=== PATIENT | female | born 1960 | race Caucasian/White ===

== ENCOUNTER → 2016-04-04 | Outpatient (CLI) | payer OTHER ==
[2016-04-04 14:32] LABS: Basophils # (A) 0.1 k/uL (0-0.2); Basophils % (A) 1 %; CH 31.5; CHCM 32.3; Eosinophils # (A) 0.2 k/uL (0-0.7); Eosinophils % (A) 1 %; HCT 46.9 % (34.0-46.0); HDW 2.28; HGB 14.9 gm/dL (11.4-16.0); Luc # (Auto) 0.14; Luc % (Auto) 1; Lymphocytes # (A) 2.9 k/uL (1.0-4.8); Lymphocytes % (A) 27 %; MCH 31.2 pg (25.0-35.0); MCHC 31.8 g/dL (31.0-37.0); MCV 97.9 fL (80.0-100.0); Mean Platelet Volume 6.8; Monocytes # (A) 0.8 k/uL (0-1.0); Monocytes % (A) 7 %; Neutrophils # (A) 6.5 k/uL (1.3-7.7); Neutrophils % (A) 62 %; RBC 4.79 m/uL (3.80-5.40); RDW 12.8 % (11.5-15.5); WBC 10.6 k/uL (3.8-10.6); WBC (Perox) 10.96
[2016-04-04 14:47] LABS: Anion Gap 11 mmol/L; Blood Urea Nitrogen 17 mg/dL (7-17); Carbon Dioxide 26 mmol/L (22-30); Chloride 107 mmol/L (98-107); Non-African American GFR(MDRD) 58 (>60 ml/min/1.73 sqM); Potassium 4.2 mmol/L (3.5-5.1); Sodium 144 mmol/L (137-145)
== END | disposition home or self-care (01) ==
LOC: LABPAT 14:10
PROVIDERS: ATTEND Internal Medicine Interventional Cardiology
DX: Z01.812 Encounter for preprocedural laboratory examination (principal); I25.10 Atherosclerotic heart disease of native coronary artery without angina pectoris
CPT/HCPCS: 80051; 82565; 84520; 85025

== ENCOUNTER → 2016-04-08 | Outpatient (CLI) | payer OTHER ==
--- NOTE | 2016-05-03 08:54 | MM ---
Reason for exam: screening (asymptomatic). Last mammogram was performed 13 years and 8 months ago. History: Patient is postmenopausal and has history of other cancer at age 27. Physical Findings: A clinical breast exam by your physician is recommended on an annual basis and results should be correlated with mammographic findings. MG Screening Mammo w CAD Bilateral CC and MLO view(s) were taken. Prior study comparison: August 04, 2002, bilateral screening mammogram. July 25, 2001, left breast special view mammogram. No significant changes when compared with prior studies. ASSESSMENT: Benign, BI-RAD 2 RECOMMENDATION: Routine screening mammogram of both breasts in 1 year.
== END | disposition home or self-care (01) ==
LOC: RADMAMWWP 10:18
PROVIDERS: ATTEND Family Medicine
DX: Z12.31 Encounter for screening mammogram for malignant neoplasm of breast (principal)

== ENCOUNTER 2016-04-14 07:02 | Day surgery (SDC) | payer OTHER ==
[2016-04-12 09:41] VITALS: BMI 36.5
[~2016-04-14 07:02] MED LIST: ALPRAZolam 0.25 MG TAB PO PRN; ALPRAZolam 0.5 MG TAB PO PRN; ASPIRIN 325 MG TAB PO STA; ATORVASTATIN 80 MG TAB PO STA; NITROGLYCERIN SL TABS 0.4 MG TAB SUBLINGUAL PRN; SODIUM CHLORIDE 0.9% 1,000 ML in EMPTY BAG 1 BAG IV ONE
[2016-04-14 07:30] VITALS: TEMP 97.8
[2016-04-14] MEDS ORDERED: LIDOCAINE 2% INJ 20 MG/ML SQ ONE (11:23)
[2016-04-14] MEDS ORDERED: MIDAZOLAM 2 MG/2 ML VIAL IVP ONE (11:24)
[2016-04-14] MEDS ORDERED: fentaNYL (PF) 50 MCG/ML 2 ML AMP IV ONE (11:37)
[2016-04-14] MEDS ORDERED: RX INFO: IV CONTRAST WAS GIVEN 1 EACH MISC MISCELLANE PRN (11:52)
[2016-04-14] MEDS ORDERED: IOHEXOL 350 MG/ML 100 ML BOTTLE INJ ONE (11:52)
[2016-04-14] MEDS ORDERED: SODIUM CHLORIDE 0.9% 1,000 ML IV SCH (12:00)
[2016-04-14 16:35] VITALS: BP 121/65; PULSE 65; RESP 18
--- NOTE | 2016-04-14 19:55 | LTR ---
April 14, 2016 RE: Sneha Carmona Dear Dr. Nieves, Ms. Monique Carmona underwent heart catheterization today that showed only mild non-obstructive disease involving the mid right coronary artery. I want to thank you for allowing me to participate in her care. Please do not hesitate to call with any questions or concerns. Sincerely, STORMY BARNARD MD
--- NOTE | 2016-04-14 20:04 | CC ---
DATE OF SERVICE: 04/14/2016 Performing physician: Tim Park M.D., uat tester. PROCEDURE PERFORMED: 1. Selective right and left coronary angiogram. 2. Left heart catheterization. INDICATION: This 55-year-old female patient with a known history of coronary artery disease and PAD who was experiencing discomfort and underwent a stress test which showed distal lateral ischemia. She is here to undergo a heart catheterization. Approach: Right common femoral artery. COMPLICATIONS: None. Level of sedation: Moderate. PROCEDURE DESCRIPTION: After obtaining informed consent, the patient was brought to the brush clearing laborer. Right femoral artery was cannulated using technique under ultrasound guidance. Micropuncture wire passed easily. Then I placed a 6 Citizen Of [place] sheath in the right common femoral artery. Subsequently, I did selective right and left coronary angiogram using JR4 and JL4 catheters. Then I did left heart catheterization using JR4 which flipped into the right ventricle where I did pullback across the valve. SELECTIVE CORONARY ANGIOGRAM: 1. The right coronary artery is a large-caliber vessel and it is a dominant vessel. The RCA proximally appeared to be angiographically normal. In the midportion had disease that appeared to be in the range of 20% to 30%. Distally is normal and bifurcates into PDA and PLV branches; both are angiographically normal. 2. The left main is angiographically normal. It bifurcates into the left circumflex, ramus intermedius, and left anterior descending artery. 3. The left circumflex is a large-caliber vessel and it is a nondominant vessel. The left circumflex is angiographically normal and in the midportion gives rise into a small to medium obtuse marginal branch, which appeared to be angiographically normal. The ramus intermedius is angiographically normal. 4. Left anterior descending artery: The proximal LAD appeared to be angiographically normal. It gives rise to the first diagonal, which appeared to be normal. The mid LAD is normal and gives rise into the second diagonal, which appeared to be angiographically normal. The LAD distally is angiographically normal. HEMODYNAMICS: The left ventricular end-diastolic pressure was 18 mmHg and no gradient was identified across the aortic valve. CONCLUSION: 1. Mild nonobstructive disease involving the mid RCA. 2. Elevated left ventricular end-diastolic pressure. POSTPROCEDURE MANAGEMENT: 1. Maximize medical treatment. 2. Risk factor modifications. 3. Follow up with the patient.
== END 2016-04-14 17:15 | disposition home or self-care (01) ==
LOC: CATHCVL 07:02
PROVIDERS: ATTEND Internal Medicine Interventional Cardiology
DX: I25.10 Atherosclerotic heart disease of native coronary artery without angina pectoris (principal); I10 Essential (primary) hypertension; E78.5 Hyperlipidemia, unspecified; I73.9 Peripheral vascular disease, unspecified; Z82.49 Family history of ischemic heart disease and other diseases of the circulatory system; Z79.02 Long term (current) use of antithrombotics/antiplatelets; Z87.891 Personal history of nicotine dependence; Z79.82 Long term (current) use of aspirin; Z79.51 Long term (current) use of inhaled steroids; Z79.899 Other long term (current) drug therapy; Z88.3 Allergy status to other anti-infective agents; Z88.5 Allergy status to narcotic agent; Z88.0 Allergy status to penicillin; Z88.8 Allergy status to other drugs, medicaments and biological substances; Z91.09 Other allergy status, other than to drugs and biological substances
CPT/HCPCS: 93458; C1769 ×4; C1760; C1894; C1887; J2001; J2250; Q9967; J3010

== ENCOUNTER → 2016-06-21 | Outpatient (CLI) | payer OTHER ==
--- NOTE | 2016-06-21 23:36 | MR ---
EXAMINATION TYPE: MR lumbar spine wo/w con DATE OF EXAM: 06/21/2016 10:09 PM COMPARISON: NONE HISTORY: Patient has lumbar pain and right and left hip pain TECHNIQUE: Multiplanar, multisequence images of the lumbar spine were acquired utilizing 19 mL intravenous Multi Karen gadolinium contrast. The lumbar vertebra have normal alignment. There is mild narrowing at L3-4 L4-5 disc spaces. There is posterior fusion surgery with screws present at L4-5. There is hypertrophic facet arthropathy and co ncentric posterior disc herniation at L3-4 with resultant [id number] spinal stenosis. There is mild posterior disc bulging at L2-3. There is no compression fracture. There is no paraspinal mass. T he visualized sacroiliac joints appear normal. There is no pathologic enhancement. The neural foramin a are fairly well maintained. There is probably a small synovial cyst at the left facet joint of L3-4 . IMPRESSION: There is mild to moderate L3-4 spinal stenosis due to facet arthropathy and concentric posterior disc herniation. There is also a mild to moderate anterior L3 for disc herniation. No fracture. There is a 10 x 4 mm area of fluid adjacent to the L3-4 facet joint on the left side contributing to the spina l stenosis. This is probably a synovial cyst.
== END | disposition home or self-care (01) ==
LOC: RADMRIMAIN 20:30
PROVIDERS: ATTEND Nurse Practitioner Family
DX: M48.06 Spinal stenosis, lumbar region (principal); M51.26 Other intervertebral disc displacement, lumbar region; M46.96 Unspecified inflammatory spondylopathy, lumbar region
CPT/HCPCS: 82565; 84520; 72158; A9577

== ENCOUNTER → 2016-11-20 | Day surgery (SDC) | payer OTHER ==
[~2016-11-20] MED LIST changes: -ALPRAZolam 0.25 MG TAB PO PRN; -ALPRAZolam 0.5 MG TAB PO PRN; -ASPIRIN 325 MG TAB PO STA; -ATORVASTATIN 80 MG TAB PO STA; +DIAZEPAM 5 MG TAB PO STA; -NITROGLYCERIN SL TABS 0.4 MG TAB SUBLINGUAL PRN; +PREMYELOGRAM MEDICATION REVIEW 1 EACH MISC PO NR; -SODIUM CHLORIDE 0.9% 1,000 ML in EMPTY BAG 1 BAG IV ONE
[2016-11-20 08:43] LABS: Blood Urea Nitrogen 21 mg/dL (7-17); Non-African American GFR(MDRD) 58 (>60 ml/min/1.73 sqM)
[2016-11-20 08:46] LABS: Prothrombin Time 10.6 sec (9.0-12.0)
[2016-11-20 08:52] VITALS: TEMP 97.9
--- NOTE | 2016-11-20 10:24 | FL ---
EXAMINATION TYPE: FL myelogram 2 or more regions DATE OF EXAM: 11/20/2016 COMPARISON: NONE HISTORY: Back and neck pain Informed consent was obtained and all the patient's questions were answered. The L3-L4 level was loc alized under fluoroscopy. Standard sterile technique was utilized as well as appropriate local anest hesia 1% Lidocaine and sodium bicarbonate. Spinal needle was introduced into the thecal sac under fl uoroscopic guidance and 7 mL's of Omni 240 was injected. Image of the lumbar region demonstrates con trast within the thecal sac. Patient was positioned and contrast was seen to extend into the thoracic and cervical region. The patient tolerated the procedure well and left the department in stable cond ition. CT myelography is to follow. 2 minutes and 19 seconds of fluoroscopy utilized. IMPRESSION: Successful myelography cervical and lumbar spine.
--- NOTE | 2016-11-20 10:41 | CT ---
EXAMINATION TYPE: CT lumbar spine w con DATE OF EXAM: 11/20/2016 COMPARISON: MRI 06/21/2016 HISTORY: Lumbar disc herniation, lumbago post myelogram CT DLP: 1891 mGycm Automated exposure control for dose reduction was used. CONTRAST: CT scan of the lumbar is performed with IV Contrast, patient injected with 10 mL of Omnipaque 180. Enhanced CT of the lumbar spine was performed. Bone and soft tissue window settings are submitted as well as coronal and sagittal reconstructions. I contrast within the thecal sac post myelogram appear s ideal density. L1-L2: Normal disc space height. No disc herniation protrusion or central stenosis. No facet joint arthropathy. No evidence for foraminal encroachment. L2-L3: Moderate degenerative disc disease with hypertrophic spurring. There is circumferential disc b ulging and mild bilateral foraminal encroachment but no definite nerve root contact or canal stenosis . L3-L4: Moderate to severe degenerative disc disease. There is diffuse disc bulging with hypertrophic change of the facets and ligamentum flavum. Moderate to severe canal stenosis and bilateral foraminal encroachment. Synovial cyst seen by MRI with regard to left facet joint is stable in size with mild posterior lateral thecal sac impression. L4-L5: Postsurgical change with no definite canal stenosis. Neural foramina appear to remain patent. No definite disc herniation. L5-S1: Facet arthropathy but no disc herniation or canal stenosis. Neural foramina are patent and no significant degenerative disc disease. There is atherosclerotic change of the aorta. Sagittal view suggest a maximal dimension of 2.6 cm com patible with ectasia. Bilateral iliac stents are noted. Single right-sided kidney noted. Previous tyrone primo suspected within the left renal fossa. Artifact from the gallbladder fossa likely related to pre vious surgery. IMPRESSION: 1. Postsurgical change L4-5 with no evidence of canal stenosis or foraminal encroachment. 2. Circumferential disc bulging L3-L4 with facet arthropathy and ligamentum flavum hypertrophy. Resul ts in moderate to severe canal stenosis and bilateral foraminal encroachment. Synovial cyst on the le ft noted by MRI is stable circumferential disc bulging L2-L3 with no nerve root impingement or canal stenosis. Mild bilateral foraminal encroachment. 4. Aortic ectasia with maximal dimension of 2.6 x 2.7 cm within the infrarenal abdominal aorta.
--- NOTE | 2016-11-20 12:11 | CT ---
EXAMINATION TYPE: CT cervical spine w con DATE OF EXAM: 11/20/2016 COMPARISON: NONE HISTORY: Neck pain CT DLP: 822 mGycm Automated exposure control for dose reduction was used. CONTRAST: Performed with IV Contrast, patient injected with 7 mL of Omnipaque 180. Contrast was instilled as pa rt of a myelogram. FINDINGS: Alignment is anatomic in the odontoid is intact. Slight curvature of the spine noted. Disc space appears be fairly well preserved with the exception of the postsurgical site. Artifact from the postsurgical changes limits assessment of the thecal sac and spinal canal at both levels. At C2-C3 there is mild hypertrophic change of the left facet joint. Neural foramina patent. No canal stenosis, disc herniation or foraminal encroachment. At C3-C4 there is no disc herniation or canal stenosis. No foraminal encroachment. At C4-C5 there is facet arthropathy and mild uncovertebral joint hypertrophy but no canal stenosis or disc herniation. Neural foramina are patent. At C5-C6 there is postsurgical change and evidence of posterior spondylosis with mild impression upo n the thecal sac. There is uncovertebral joint hypertrophy bilaterally greater on the right with mild foraminal encroachment. At C6-C7 there is uncovertebral joint and posterior spondylosis. Metallic artifact limits assessment spinal canal with evidence of previous surgery. There is more moderate right-sided foraminal encroach ment due to uncovertebral joint hypertrophy. Mild effacement of thecal sac with no definite canal mike nosis. Mild left-sided foraminal encroachment. At C7-T1 there is no disc herniation or canal stenosis. No foraminal encroachment. IMPRESSION: POSTSURGICAL CHANGES WITH NO EVIDENCE OF CANAL STENOSIS OR FOCAL HERNIATION. UNCOVERTEBRAL JOINT HYPE RTROPHY AT C5-6 AND GREATER AT C6-C7 RESULTS IN RIGHT-SIDED FORAMINAL ENCROACHMENT DISCUSSED ABOVE .
[2016-11-20 17:34] VITALS: BP 134/57; PULSE 70; RESP 16
== END ==
LOC: RADPROMAIN 07:59
PROVIDERS: ATTEND Medical Genetics Clinical Genetics (M.D.)
DX: M51.16 Intervertebral disc disorders with radiculopathy, lumbar region (principal); M43.16 Spondylolisthesis, lumbar region; M50.122 Cervical disc disorder at C5-C6 level with radiculopathy; M46.92 Unspecified inflammatory spondylopathy, cervical region; M47.22 Other spondylosis with radiculopathy, cervical region; M71.38 Other bursal cyst, other site; I77.811 Abdominal aortic ectasia
CPT/HCPCS: 82565; 82947; 84520; 85049; 85610; 36415; 62305; 72126; 72132; Q9965; 62284

== ENCOUNTER → 2017-02-28 | Outpatient (CLI) | payer MEDICARE, OTHER ==
--- NOTE | 2017-02-28 21:03 | CONS ---
CONSULTATION This is a 56-year-old lady who has been evaluated in the sleep center for obstructive sleep apnea-hypopnea syndrome. HISTORY OF PRESENT ILLNESS/SLEEP-WAKE EVALUATION: The patient was diagnosed with obstructive sleep apnea about 7 years ago. Since that time she has been on treatment with CPAP. Recently she stopped using her CPAP because of some problem with her equipment. Her sleep schedule is usually from 1:30 or 2:30 a.m. until 8 a.m. No problem with falling asleep, although she has a TV set in the bedroom. She wakes up from sleep 2 times with nocturia. She snores. She has episodes of stopped breathing during the sleep, awakenings with dry mouth, sleeptalking. In the morning she wakes up tired, has difficulties paying attention, falling asleep during the day, has problems with memory, concentration, irritability, depression, anxiety . [place] Sleepiness Scale is significantly increased at 12. PAST MEDICAL HISTORY: 1. Coronary artery disease. 2. Hyperlipidemia. 3. Hypertension. 4. COPD. 5. Fibromyalgia. 6. Significant atherosclerosis of big arteries. The patient had stents in her femoral arteries on both sides. 7. Small descending aortic aneurysm. PAST SURGICAL HISTORY: 1. Cervical fusion. 2. Hysterectomy. 3. Left nephrectomy; patient donated her kidney. 4. Appendectomy. 5. Stents in femoral arteries. SOCIAL HISTORY: Positive for smoking for about 40 years' total; at present less than 1 pack; trying to quit. Alcohol consumption rarely. REVIEW OF SYSTEMS: Awakenings from sleep, sleepiness during the day. FAMILY HISTORY: Hypertension, heart problems, stroke, arthritis, lung problems, insomnia, acid reflux, diabetes. PHYSICAL EXAMINATION: lady without distress. VITAL SIGNS: BP 118/75, HR 85, RR 14, height 52-3/4, weight 219.8, BMI 39.1. Neck 15- 1/2 inches in circumference. Temperature 97.6. Oxygen saturation on room air 96%. HEENT: PERRLA, EOMI. Evaluation of oropharynx showed tongue protrudes midline; extremely low position of soft palate. Some restriction of nasal breathing. NECK: Supple. No JVD. Thyroid is not palpable. LUNGS: Clear to percussion and to auscultation. Good air exchange. No wheezing or rhonchi. HEART: S1, S2. ABDOMEN: Obese. EXTREMITIES: One plus ankle edema; painful during palpation of the front of her tibia area. FINANCIAL AID COORDINATOR: Awake, alert and oriented x3. Cranial nerves 2 to 7 intact. There is no fasciculation or atrophy noted. No focal deficits observed. IMPRESSION: 1. Snoring, history of obstructive sleep apnea diagnosed 7 years ago, witnessed episodes of stopped breathing, low position of soft palate, sleepiness, obesity; obstructive sleep apnea-hypopnea syndrome. 2. Obesity with body mass index 39.1. 3. Coronary artery disease. 4. Hypertension. 5. Hyperlipidemia. 6. Chronic obstructive pulmonary disease. 7. Fibromyalgia. 8. Status post section. 9. Status post appendectomy. 10.Status post left nephrectomy. Patient donated her kidney. 11.Status post cervical fusion. 12.Status post partial hysterectomy. 13.Status post lumbar fusion, L3-L4. 14.Status post stent insertion to femoral arteries bilaterally for significant atherosclerosis. PLAN: 1. Polysomnography for evaluation of patient's breathing during sleep. 2. CPAP/BiPAP titration if sleep study confirms obstructive sleep apnea-hypopnea syndrome. 3. Preferable position during sleep on the side. 4. No driving if patient feels any sleepiness. Patient is aware of civil and criminal liability for unsafe driving. 5. I will see patient for follow-up visit to explain results of testing and following plan. 6. Prescription for all necessary CPAP supplies. Thank you very much for referring this patient for consultation. Sincerely, Ryder Meza MD, PhD, FAASM Diplomat of [place] [employer] [place] [employer] Motorized Squad Sergeant of [facility] [place] MMODL / IJN: [id number] /
== END | disposition home or self-care (01) ==
LOC: SLEEP 14:57
PROVIDERS: ATTEND Internal Medicine
DX: G47.33 Obstructive sleep apnea (adult) (pediatric) (principal); E66.9 Obesity, unspecified; I25.10 Atherosclerotic heart disease of native coronary artery without angina pectoris; I10 Essential (primary) hypertension; E78.5 Hyperlipidemia, unspecified; J44.9 Chronic obstructive pulmonary disease, unspecified; M79.7 Fibromyalgia; Z68.39 Body mass index [BMI] 39.0-39.9, adult; Z98.890 Other specified postprocedural states
CPT/HCPCS: 99211

== ENCOUNTER → 2017-06-01 | Outpatient (CLI) | payer MEDICARE ==
--- NOTE | 2017-06-04 11:47 | MM ---
Reason for exam: screening (asymptomatic). Last mammogram was performed 1 year and 2 months ago. History: Patient is postmenopausal and has history of other cancer at age 27. Physical Findings: A clinical breast exam by your physician is recommended on an annual basis and results should be correlated with mammographic findings. MG 3D Screening Mammo W/Cad Bilateral CC and MLO view(s) were taken. Prior study comparison: April 08, 2016, bilateral MG screening mammo w CAD. June 16, 2015, mammogram, performed at [place]. There are scattered fibroglandular densities. No suspicious abnormality. No significant changes when compared with prior studies. ASSESSMENT: Negative, BI-RAD 1 RECOMMENDATION: Routine screening mammogram of both breasts in 1 year.
== END | disposition home or self-care (01) ==
LOC: RADMAMWWP 13:16
PROVIDERS: ATTEND Family Medicine
DX: Z12.31 Encounter for screening mammogram for malignant neoplasm of breast (principal)
CPT/HCPCS: 77063; 77067

== ENCOUNTER → 2017-06-09 | Outpatient (CLI) | payer MEDICARE ==
[2017-06-09 08:45] LABS: Basophils # (A) 0.1 k/uL (0-0.2); Basophils % (A) 1 %; Eosinophils # (A) 0.2 k/uL (0-0.7); Eosinophils % (A) 2 %; HCT 51.9 % (34.0-46.0); HGB 16.9 gm/dL (11.4-16.0); Lymphocytes # (A) 2.5 k/uL (1.0-4.8); Lymphocytes % (A) 23 %; MCH 31.1 pg (25.0-35.0); MCHC 32.7 g/dL (31.0-37.0); MCV 95.2 fL (80.0-100.0); Mean Platelet Volume 6.8; Monocytes # (A) 0.9 k/uL (0-1.0); Monocytes % (A) 9 %; Neutrophils # (A) 6.7 k/uL (1.3-7.7); Neutrophils % (A) 64 %; Platelet Count 290 k/uL (150-450); RBC 5.45 m/uL (3.80-5.40); RDW 13.1 % (11.5-15.5); WBC 10.6 k/uL (3.8-10.6)
[2017-06-09 08:47] LABS: Appearance,Urine Cloudy (Clear); Bacteria,Urine Rare /hpf; Bilirubin,Urine Negative (Negative); Blood,Urine Trace (Negative); Color,Urine Yellow; Glucose,Urine (UA) Negative (Negative); Hyaline Casts,Urine 4 /lpf (0-2); Ketones,Urine Negative (Negative); Leukocyte Esterase,Urine Negative (Negative); Mucus,Urine Rare /hpf; PH, Urine 5.5 (5.0-8.0); Protein,Urine Trace (Negative); RBC,Urine 3 /hpf (0-5); Specific Gravity,Urine 1.019 (1.001-1.035); Squamous Epithelial Cell,Urine 10 /hpf (0-4); Urobilinogen,Urine <2.0 mg/dL (<2.0); WBC,Urine 3 /hpf (0-5)
[2017-06-09 09:06] LABS: Albumin 4.5 g/dL (3.5-5.0); Potassium 4.3 mmol/L (3.5-5.1); Total Bilirubin 0.5 mg/dL (0.2-1.3); Total Protein 7.9 g/dL (6.3-8.2)
[2017-06-09 18:52] LABS: Hemoglobin A1C 6.3 % (4.0-6.0)
== END | disposition home or self-care (01) ==
LOC: LABWHC1 07:59
PROVIDERS: ATTEND Family Medicine
DX: E11.9 Type 2 diabetes mellitus without complications (principal); J44.9 Chronic obstructive pulmonary disease, unspecified; R35.8 Other polyuria; I25.10 Atherosclerotic heart disease of native coronary artery without angina pectoris; E66.9 Obesity, unspecified; R32 Unspecified urinary incontinence
CPT/HCPCS: 36415; 80053; 80061; 81001; 82043; 82306; 82533; 82570; 83036; 85025; 87086

== ENCOUNTER → 2017-07-05 | Outpatient (CLI) | payer MEDICARE, OTHER ==
--- NOTE | 2017-07-05 12:52 | SFUN ---
SLEEP STUDY FOLLOW UP NOTE DATE OF SERVICE: 07/05/2017 This is a 57-year-old lady who has been followed in sleep center for treatment of obstructive sleep apnea-hypopnea syndrome. Recently patient had CPAP titration and after that received new CPAP machine. She likes her machine using it every night without problems. No snoring with the machine. [place] Sleepiness Scale is 9. I discussed results of sleep studies with patient in details. Polysomnogram showed severe sleep apnea with apnea-hypopnea index 68.2 with oxygen desaturation to 83.3%. I checked CPAP unit. CPAP pressure is 8 cm of water. Usage is 100% of the night more than 4 hours. Average usage is 6.1 hours. Leak is 16 L/minute, which is acceptable. Apnea-hypopnea index for the whole period of usage is around 11.0. MEDICATIONS: Aspirin, Plavix, pravastatin, Imdur, gabapentin, Symbicort, metoprolol, . PHYSICAL EXAM: During physical exam, patient in no distress. VITAL SIGNS: BP 114/76, HR 69, RR 16, weight 228.2, temperature 98.1, oxygen saturation normal at 93%. HEENT: PERRLA, EOMI, evaluation of oropharynx extremely low position of soft palate. NECK: Supple, no JVD. Thyroid is not palpable. LUNGS: Clear to percussion and to auscultation. Good air exchange. No wheezing or rhonchi. HEART: S1, S2 regular. No murmurs, gallops, or rubs. ABDOMEN: Obese. EXTREMITIES: No clubbing or cyanosis. BLUEPRINT READER: Awake, alert, and oriented X3. Cranial nerves 2 to 7 intact. There is no fasciculation or atrophy. noted. No focal deficits observed. IMPRESSION: 1. Severe obstructive sleep apnea-hypopnea syndrome. The patient demonstrated 100% compliance with treatment benefitting from treatment. 2. Obesity. 3. Coronary artery disease. 4. Hypertension. 5. Hyperlipidemia. 6. Chronic obstructive pulmonary disease. 7. Fibromyalgia. 8. Status post left nephrectomy, patient donated her kidney. 9. Status post section. 10.Status post appendectomy. 11.Status post cervical fusion. 12.Status post partial hysterectomy. 13.Status post lumbar fusion, L3-L4. 14.Status post stent insertion to femoral artery bilaterally. PLAN: 1. I will increase CPAP pressure to 10 cm of water. 2. Patient will continue to use his CPAP equipment every night for the whole night. 3. Continue not to smoke. 4. I will teach patient how to adjust humidity in her machine. 5. Losing weight. 6. No driving if feeling sleepiness. 7. Sleep hygiene with regular time in bed for at least 8 hours. Thank you very much for allowing me to participate in management of your patient. Sincerely, Ryder Meza MD, PhD, FAASM Diplomat of [place] [employer] Print Finishing Worker of [facility] [place] [employer] MMODL / IJN: [id number] /
== END | disposition home or self-care (01) ==
LOC: SLEEP 11:40
PROVIDERS: ATTEND Internal Medicine
DX: G47.33 Obstructive sleep apnea (adult) (pediatric) (principal); E66.9 Obesity, unspecified; I25.10 Atherosclerotic heart disease of native coronary artery without angina pectoris; I10 Essential (primary) hypertension; E78.5 Hyperlipidemia, unspecified; J44.9 Chronic obstructive pulmonary disease, unspecified; M79.7 Fibromyalgia; Z90.5 Acquired absence of kidney; Z98.890 Other specified postprocedural states; Z90.49 Acquired absence of other specified parts of digestive tract; Z98.1 Arthrodesis status; Z90.710 Acquired absence of both cervix and uterus; Z95.5 Presence of coronary angioplasty implant and graft; Z99.89 Dependence on other enabling machines and devices; Z79.82 Long term (current) use of aspirin; Z79.899 Other long term (current) drug therapy

== ENCOUNTER 2017-08-17 17:22 | Emergency (ER) | payer MEDICARE, OTHER ==
[2017-08-17 17:36] VITALS: RESP 18
[2017-08-17] MEDS ORDERED: BENZONATATE 100 MG CAP PO STA (17:45)
--- NOTE | 2017-08-17 17:51 | ED ---
Abdominal Pain HPI - General Chief Complaint: Abdominal Pain Stated Complaint: Side Abd Pain Time Seen by Provider: 08/17/17 17:39 Source: patient Mode of arrival: ambulatory Limitations: no limitations - History of Present Illness Initial Comments: 57-year-old female patient presents emergency department today for complaints of cough. Patient states that she has had a harsh barking cough for the last 3 days. Patient states that she is now coughing up green sputum with this. Patient states that she has been coughing so much and so hard that she has not experiencing a sharp left upper abdominal pain with each coughing episode. Patient states that she is unable to sleep due to the coughing. She denies any fever, chills, sore throat, nasal congestion, nausea, vomiting, or shortness of breath with this. States that she did stop smoking on 06/21/2017. Patient states that she has been taking DayQuil and NyQuil without relief. Patient denies any recent rash, chest pain, diarrhea, constipation, back pain, numbness , tingling, dizziness, weakness, hematuria, dysuria, urinary urgency, urinary frequency, headache, visual changes, or any other complaints. - Related Data Home Medications Medication Instructions Recorded Confirmed Clopidogrel [Plavix] 75 mg PO DAILY 05/13/15 08/17/17 DULoxetine HCL [Cymbalta] 60 mg PO DAILY 05/13/15 08/17/17 Metoprolol Tartrate [Lopressor] 25 mg PO BID 05/13/15 08/17/17 Gabapentin [Neurontin] 100 mg PO TID 12/01/15 08/17/17 Nitroglycerin Sl Tabs [Nitrostat] 0.4 mg SUBLINGUAL Q5M PRN 12/01/15 08/17/17 Budesonide/Formoterol Fumarate 2 puff INHALATION RT-BID 10/31/16 08/17/17 [Symbicort 160-4.5 Mcg Inhaler] Fluticasone Nasal [place] [Flonase 2 spr EA NOSTRIL DAILY 02/23/17 08/17/17 Nasal [place]] Isosorbide Mononitrate ER [Imdur] 60 mg PO DAILY 02/23/17 08/17/17 Sodium Chloride [[place]] 1 spray EA NOSTRIL DAILY PRN 02/23/17 08/17/17 Albuterol Inhaler [Ventolin Hfa 1 - 2 puff INHALATION RT-Q6H PRN 08/17/17 Inhaler] Aspirin EC [Ecotrin Low Dose] 81 mg PO DAILY 08/17/17 08/17/17 Cholecalciferol [Vitamin D3] 1,000 unit PO DAILY 08/17/17 08/17/17 Mirabegron [Myrbetriq] 50 mg PO DAILY 08/17/17 08/17/17 Pravastatin Sodium [Pravachol] 20 mg PO HS 08/17/17 08/17/17 Previous Rx's Medication Instructions Recorded Benzonatate [Tessalon Perles] 100 mg PO TID PRN #15 capsule 08/17/17 predniSONE 50 mg PO DAILY #5 tablet 08/17/17 Allergies Allergy/AdvReac Type Severity Reaction Status Date / Time adhesive tape Allergy Rash/Hives Verified 08/17/17 18:20 codeine Allergy Anaphylaxis Verified 08/17/17 18:20 erythromycin base Allergy Rash/Hives Verified 08/17/17 18:20 hydromorphone HCl Allergy Anaphylaxis Verified 08/17/17 18:20 [From Dilaudid] latex Allergy Swelling Verified 08/17/17 18:20 Penicillins Allergy Rash/Hives Verified 08/17/17 18:20 guaifenesin AdvReac Dizziness Verified 08/17/17 18:20 meclizine AdvReac Nausea & Verified 08/17/17 18:20 Vomiting morphine AdvReac Hallucinati Verified 08/17/17 18:20 ons,vomitin g tramadol AdvReac Nausea & Verified 08/17/17 18:20 Vomiting varenicline AdvReac Hallucinati Verified 08/17/17 18:20 ons Tb skin test Allergy Itching Uncoded 08/17/17 17:31 Review of Systems ROS Statement: Those systems with pertinent positive or pertinent negative responses have been documented in the HPI. ROS Other: All systems not noted in ROS Statement are negative. Past Medical History Past Medical History: Asthma, Coronary Artery Disease (CAD), Chest Pain / Angina , COPD, Diabetes Mellitus, Fibromyalgia, Hypertension, Pneumonia, Sleep Apnea/ CPAP/BIPAP Additional Past Medical History / Comment(s): Diabetes type II diet controlled, AAA 2.5cm being monitored, PVD and PAD, RASHID with CPAP use, vertigo but none lately. 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 sister-L nephrectomy, several cardiac caths-no stents or ballooning, bilateral femoral stents which occluded with plaque then cleaned out, cervical fusion with plate and 4 screws, cyst removed from back and back surgery with ravi, x2, R hip bone donor, D&C Past Anesthesia/Blood Transfusion Reactions: No Reported Reaction Additional Past Anesthesia/Blood Transfusion Reaction / Comment(s): first c- section - too much anesthesia Past Psychological History: Anxiety, Bipolar Smoking Status: Former smoker Past Alcohol Use History: Rare Past Drug Use History: Marijuana - Past Family History Mother Family Medical History: Diabetes Mellitus, Myocardial Infarction ([place]), Pulmonary Embolus Additional Family Medical History / Comment(s): scleroderma. [place] x 4 Father Family Medical History: Musculoskeletal Disorder, Neurologic Disorder Additional Family Medical History / Comment(s): Father is . He had parkinson's dx. General Exam Limitations: no limitations General appearance: alert, in no apparent distress, other (This is a well- developed, well-nourished adult female patient in no acute distress. Vital signs upon presentation are temperature 97.0F, pulse 73, respirations 18, blood pressure 123/63, pulse ox 95% on room air.) Eye exam: Present: normal appearance, PERRL, EOMI. Absent: scleral icterus, conjunctival injection, periorbital swelling ENT exam: Present: normal exam, mucous membranes moist Neck exam: Present: normal inspection. Absent: tenderness, meningismus, lymphadenopathy Respiratory exam: Present: normal lung sounds bilaterally. Absent: respiratory distress, wheezes, rales, rhonchi, stridor Cardiovascular Exam: Present: regular rate, normal rhythm, normal heart sounds. Absent: systolic murmur, diastolic murmur, rubs, gallop, clicks GI/Abdominal exam: Present: soft, tenderness (left upper abdominal tenderness, left lower rib tenderness. ), normal bowel sounds. Absent: distended, guarding , rebound, rigid Neurological exam: Present: alert, oriented X3, CN II-XII intact Psychiatric exam: Present: normal affect, normal mood Skin exam: Present: warm, dry, intact, normal color. Absent: rash Course Vital Signs 08/17/17 08/17/17 17:32 19:05 Temperature 97 F L 97.5 F L Pulse Rate 73 66 Respiratory 18 18 Rate Blood Pressure 123/63 125/60 O2 Sat by Pulse 95 95 Oximetry Medical Decision Making - Medical Decision Making 57-year-old female patient percents to the emergency department today for complaints of cough and left lower rib pain. Physical examination did reveal clear equal lung sounds. Patient did have some mild lower rib tenderness. Chest x-ray showed no acute cardiopulmonary process with some atelectasis at the left lung base. Patient symptoms are consistent with acute bronchitis. Possible muscle strain related to coughing. We'll treat with prednisone and give Tessalon Perles for symptom relief. She is instructed to continue taking DayQuil and NyQuil for symptom relief as well. She is instructed to follow-up with her primary care physician for recheck in 1-2 days. Return for are discussed in detail. She verbalizes understanding and agrees with this plan. - Radiology Data Radiology results: report reviewed, image reviewed Two-view x-ray of the chest was obtained. Heart size is normal. Aorta and pulmonary vasculature within normal limits. Strain the atelectasis left lower lung. No consolidation, pneumothorax, or pleural effusion. Impression by Dr. Murillo shows stranding atelectasis left lower lung. Otherwise, no acute cardiopulmonary process. Disposition Clinical Impression: Acute bronchitis, Pulled muscle Disposition: HOME SELF-CARE Condition: Good Instructions: Muscle Strain (ED), Acute Bronchitis (ED) Additional Instructions: Take medications as directed. Increase fluids. Follow up with her primary care physician for recheck in 1-2 days. Return here immediately for any new, worsening, or concerning symptoms. Prescriptions: Benzonatate [Tessalon Perles] 100 mg PO TID PRN #15 capsule PRN Reason: Cough predniSONE 50 mg PO DAILY #5 tablet Is patient prescribed a controlled substance at d/c from ED?: No Referrals: Nicole Olivo MD [Primary Care Provider] - 1-2 days Time of Disposition: 18:52
--- NOTE | 2017-08-17 18:28 | XR ---
EXAMINATION TYPE: XR chest 2V DATE OF EXAM: 08/17/2017 COMPARISON: 02/23/2017 HISTORY: 57-year-old female left-sided pain after coughing TECHNIQUE: Frontal and lateral views FINDINGS: The heart is normal size. Aorta and pulmonary vasculature within normal limits. Strandy atelectasis l eft lower lung. No consolidation, pneumothorax, or pleural effusion. IMPRESSION: Strandy atelectasis left lower lung. Otherwise, no acute cardiopulmonary process.
[2017-08-17] MEDS ORDERED: predniSONE 50 MG TAB PO STA (18:49)
[2017-08-17 19:06] VITALS: BP 125/60; PULSE 66; TEMP 97.5
== END 2017-08-17 19:06 | disposition home or self-care (01) ==
LOC: EC 17:22
DX: J20.9 Acute bronchitis, unspecified (principal); S39.011A Strain of muscle, fascia and tendon of abdomen, initial encounter; J98.11 Atelectasis; J44.9 Chronic obstructive pulmonary disease, unspecified; E11.9 Type 2 diabetes mellitus without complications; I10 Essential (primary) hypertension; I73.9 Peripheral vascular disease, unspecified; I25.10 Atherosclerotic heart disease of native coronary artery without angina pectoris; G47.33 Obstructive sleep apnea (adult) (pediatric); M79.7 Fibromyalgia; F41.9 Anxiety disorder, unspecified; F31.9 Bipolar disorder, unspecified; Z87.891 Personal history of nicotine dependence; Z79.02 Long term (current) use of antithrombotics/antiplatelets; Z79.51 Long term (current) use of inhaled steroids; Z79.82 Long term (current) use of aspirin; Z79.899 Other long term (current) drug therapy; Z88.0 Allergy status to penicillin; Z90.5 Acquired absence of kidney; Z88.1 Allergy status to other antibiotic agents; Z88.5 Allergy status to narcotic agent; Z88.8 Allergy status to other drugs, medicaments and biological substances; Z91.040 Latex allergy status; Z91.09 Other allergy status, other than to drugs and biological substances; Z99.89 Dependence on other enabling machines and devices; Z86.79 Personal history of other diseases of the circulatory system; Z90.49 Acquired absence of other specified parts of digestive tract; X58.XXXA Exposure to other specified factors, initial encounter
CPT/HCPCS: 71046; 99284; J7512

== ENCOUNTER → 2017-10-25 | Outpatient (CLI) | payer MEDICARE, OTHER ==
--- NOTE | 2017-10-25 14:59 | MR ---
EXAMINATION TYPE: MR lumbar spine wo/w con DATE OF EXAM: 10/25/2017 COMPARISON: CT lumbar spine dated 11/20/2016 HISTORY: Low back pain /Spondylosis TECHNIQUE: Multiplanar, multisequence images of the lumbar spine were acquired utilizing 10 mL intravenous Gadav ist gadolinium contrast. FINDINGS: The lumbar spine vertebral bodies maintain normal vertebral body heights and alignment. There is post surgical fixation of L4 and L5 with pedicular screws, fixation rods and intervertebral disc cage. The re is also resection of posterior elements at L4 and L5. There is straightening of usual lumbar lordo sis. Multilevel disc desiccation is seen. Conus medullaris is unremarkable terminating at L1-L2. The left kidney is not seen and may be surgically or congenitally absent. T2 hyperintense indeterminate h epatic lesion measures 7 mm and is not fully characterized or visualized on this examination. L1-L2: There is a broad-based disc bulge without neural foraminal narrowing or spinal canal stenosis. L2-L3: There is a broad-based disc bulge and facet arthropathy resulting in very minimal bilateral ne uroforaminal narrowing. No significant spinal canal stenosis. L3-L4: There is a broad-based disc bulge, facet arthropathy, and ligamentum flavum buckling with smal l central annular tear resulting in mild bilateral neural foraminal narrowing and mild spinal canal s tenosis. L4-L5: There is an intervertebral disc cage seen at this level with no residual disc herniation. Spin al canal and neural foramen appear patent. L5-S1: There is a small broad-based disc bulge and mild facet arthropathy without spinal canal stenos is or neural foraminal narrowing. There is no abnormal enhancement to suggest epidural fibrosis. No focal fluid collection is seen. Par aspinal musculature is symmetric and unremarkable without significant atrophy. IMPRESSION: 1. Postoperative changes at L4-L5 without evidence of recurrent disc herniation, residual disc hernia tion or epidural fibrosis. 2. Broad-based disc bulge, annular tear, prominent ligamentum flavum buckling, and facet arthropathy a level above the surgical site at L3-L4 resulting in mild spinal canal stenosis and mild bilateral n eural foraminal narrowing. 3. Mild degenerative disc disease at L2-L3 and L1-L2 with only minimal neural foraminal narrowing at L2-L3. 4. Indeterminate 7 mm hepatic lesion, not fully visualized on today's examination. Correlation with C T abdomen could be performed if there is further clinical concern.
== END | disposition home or self-care (01) ==
LOC: RADMRIMAIN 13:43
PROVIDERS: ATTEND Orthopaedic Surgery Orthopaedic Surgery of the Spine
DX: M48.061 Spinal stenosis, lumbar region without neurogenic claudication (principal); M99.73 Connective tissue and disc stenosis of intervertebral foramina of lumbar region; M51.26 Other intervertebral disc displacement, lumbar region; M51.36 Other intervertebral disc degeneration, lumbar region; M46.96 Unspecified inflammatory spondylopathy, lumbar region; M54.12 Radiculopathy, cervical region; Z98.1 Arthrodesis status
CPT/HCPCS: 72158; A9581

== ENCOUNTER → 2017-11-01 | Outpatient (CLI) | payer MEDICARE, OTHER ==
--- NOTE | 2017-11-01 11:31 | SFUN ---
SLEEP CENTER FOLLOW UP NOTE DATE OF SERVICE: 11/01/2017. HISTORY: A 57-year-old lady who has been followed in Sleep Center for treatment of obstructive sleep apnea-hypopnea syndrome. Patient has successfully continued to use her CPAP equipment every night for the whole night. No snoring with the machine. [place] Sleepiness Scale is 11. During the last visit I increased the pressure into unit to 10 cm of water because apnea-hypopnea index was increased to 11. I checked his CPAP unit. CPAP pressure is 10 cm of water. Usage is 25/30 nights more than 4 hours, average 5.8 hours. Apnea-hypopnea index 3.9, which is in normal range, and showed improvements comparing with the previous visit. Leak is 35 L/minute, which is borderline. The patient is using full-face mask. MEDICATIONS: Aspirin, Plavix, pravastatin, Imdur, gabapentin, . PHYSICAL EXAM: GENERAL: Patient in no distress. VITAL SIGNS: BP 111/67, HR 65, RR 17, height 5 feet 2 inches, weight 255.2, BMI 42.9, temperature 97.9, oxygen saturation on room air 98%. HEENT: Oropharynx low position of soft palate. ABDOMEN: Obese. Patient increased weight by around 7 pounds since previous visit. LUNGS Clear to percussion and to auscultation. Good air exchange. No wheezing or rhonchi. HEART S1, S2 regular. No murmurs, gallops, or rubs. EXTREMITIES No clubbing or cyanosis. FORESTRY TECHNICIAN Awake, alert, and oriented X3. Cranial nerves 2 to 7 intact. There is no fasciculation or atrophy. noted. No focal deficits observed. IMPRESSION: 1. Obstructive sleep apnea-hypopnea syndrome, on full control with CPAP at 10 cm of water. Patient demonstrated great compliance with treatment, benefitting from treatment. 2. Obesity. 3. Coronary artery disease. 4. Chronic obstructive pulmonary disease. 5. Hypertension. 6. Hyperlipidemia. 7. Fibromyalgia. 8. Status post left nephrectomy. The patient donated her left kidney. 9. Status post . 10.Status post appendectomy. 11.Status post cervical fusion. 12.Status post partial hysterectomy. 13.Status post lumbar fusion, L3, L4. 14.Status post stent insertions to femoral arteries, bilateral. 15.History of smoking, the patient stop smoking in May of 2017. PLAN: 1. Patient will continue to use her CPAP equipment every night, two prescription for all necessary CPAP supplies. 2. Losing weight. 3. Sleep hygiene with regular time in bed for at least 8 hours. 4. No driving if feeling sleepiness. 5. Followup visit in 1 year or earlier if patient has any problems. Thank you very much for allowing me to participate in management of your patient. Sincerely, Ryder Meza MD, PhD, FAASM Diplomat of [employer] Team Coordinator of [facility] [place] MMODL / IJN: [id number] /
== END | disposition home or self-care (01) ==
LOC: SLEEP 10:19
PROVIDERS: ATTEND Internal Medicine
DX: G47.33 Obstructive sleep apnea (adult) (pediatric) (principal); E66.9 Obesity, unspecified; I25.10 Atherosclerotic heart disease of native coronary artery without angina pectoris; J44.9 Chronic obstructive pulmonary disease, unspecified; I10 Essential (primary) hypertension; E78.5 Hyperlipidemia, unspecified; M79.7 Fibromyalgia; Z90.5 Acquired absence of kidney; Z98.890 Other specified postprocedural states; Z90.49 Acquired absence of other specified parts of digestive tract; Z98.1 Arthrodesis status; Z90.710 Acquired absence of both cervix and uterus; Z95.5 Presence of coronary angioplasty implant and graft; Z87.891 Personal history of nicotine dependence; Z99.89 Dependence on other enabling machines and devices

== ENCOUNTER 2017-11-07 06:53 | Day surgery (SDC) | payer MEDICARE, OTHER ==
[2017-11-02 14:20] VITALS: BMI 41.4
[~2017-11-07 06:53] MED LIST changes: -DIAZEPAM 5 MG TAB PO STA; +LACTATED RINGERS 1,000 ML IV SCH; +LIDOCAINE 1% 20 ML VIAL (10MG/ML) FOR IV START INTRADERMA PRN; +MIDAZOLAM 2 MG/2 ML VIAL IV PRN; -PREMYELOGRAM MEDICATION REVIEW 1 EACH MISC PO NR
[2017-11-07 07:17] VITALS: TEMP 97.8
[2017-11-07 07:19] LABS: Glucose,Whole Blood 96 mg/dL (75-99)
[2017-11-07] MEDS ORDERED: PROPOFOL 10 MG/ML 20 ML VIAL IV ONE (07:35)
[2017-11-07 07:48] LABS: Calcium 9.4 mg/dL (8.4-10.2); Potassium 3.9 mmol/L (3.5-5.1); Total Bilirubin 0.7 mg/dL (0.2-1.3); Total Protein 6.8 g/dL (6.3-8.2)
--- NOTE | 2017-11-07 07:58 | P.GSHP ---
History of Present Illness H&P Date: 11/07/17 Chief Complaint: History of colon polyps, GI bleed 's is a 57-year-old female who presents today for colonoscopy. Patient had a previous colonoscopy in [place] performed several years ago she is found to have polyps. She's had some issues rectal bleeding. Patient will undergo colonoscopy today. Past Medical History Past Medical History: Asthma, Coronary Artery Disease (CAD), Chest Pain / Angina , COPD, Diabetes Mellitus, Fibromyalgia, Hypertension, Pneumonia, Sleep Apnea/ CPAP/BIPAP Additional Past Medical History / Comment(s): Diabetes type II diet controlled, AAA 2.5cm being monitored, PVD and PAD, RASHID with CPAP , vertigo, states pneumonia at 19 yrs old-very ill & almost ., has bilateral femoral stents., uses cane . 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 sister-L nephrectomy, several cardiac caths-no stents or ballooning, bilateral femoral stents which occluded with plaque then cleaned out, cervical fusion with plate and 4 screws, cyst removed from back and back surgery with ravi & cage., C- Section x2, R hip bone donor, D&C Past Anesthesia/Blood Transfusion Reactions: No Reported Reaction, Motion Sickness Additional Past Anesthesia/Blood Transfusion Reaction / Comment(s): first c- section - too much anesthesia Past Psychological History: Anxiety, Bipolar Additional Psychological History / Comment(s): . Smoking Status: Former smoker Past Alcohol Use History: Rare Additional Past Alcohol Use History / Comment(s): QUIT SMOKING MAY 2017- SMOKED 1 PPD. Pt started smoking at age 16 (1976). Past Drug Use History: Marijuana Additional Drug Use History / Comment(s): OCCASIONAL MARIJUANA USE - Past Family History Mother Family Medical History: Diabetes Mellitus, Myocardial Infarction ([place]), Pulmonary Embolus Additional Family Medical History / Comment(s): scleroderma. [place] x 4 Father Family Medical History: Musculoskeletal Disorder, Neurologic Disorder Additional Family Medical History / Comment(s): Father is . He had parkinson's dx. Medications and Allergies Home Medications Medication Instructions Recorded Confirmed Type Clopidogrel [Plavix] 75 mg PO DAILY 05/13/15 11/07/17 History Metoprolol Tartrate [Lopressor] 25 mg PO BID 05/13/15 11/07/17 History Gabapentin [Neurontin] 100 mg PO TID 12/01/15 11/07/17 History Nitroglycerin Sl Tabs [Nitrostat] 0.4 mg SUBLINGUAL Q5M PRN 12/01/15 11/07/17 History Budesonide/Formoterol Fumarate 2 puff INHALATION RT-BID 10/31/16 11/07/17 History [Symbicort 160-4.5 Mcg Inhaler] Fluticasone Nasal [place] [Flonase 2 spr EA NOSTRIL DAILY 02/23/17 11/07/17 History Nasal [place]] Isosorbide Mononitrate ER [Imdur] 60 mg PO DAILY 02/23/17 11/07/17 History Sodium Chloride [[place]] 1 spray EA NOSTRIL DAILY PRN 02/23/17 11/07/17 History Albuterol Inhaler [Ventolin Hfa 1 - 2 puff INHALATION RT-Q6H PRN 08/17/17 History Inhaler] Aspirin EC [Ecotrin Low Dose] 81 mg PO DAILY 08/17/17 11/07/17 History Cholecalciferol [Vitamin D3] 1,000 unit PO DAILY 08/17/17 11/07/17 History Pravastatin Sodium [Pravachol] 20 mg PO HS 08/17/17 11/07/17 History Phentermine HCl [Adipex-P] 37.5 mg PO QAM 11/02/17 11/07/17 History Allergies Allergy/AdvReac Type Severity Reaction Status Date / Time adhesive tape Allergy Rash/Hives Verified 11/02/17 13:47 codeine Allergy Anaphylaxis Verified 11/02/17 13:47 erythromycin base Allergy Rash/Hives Verified 11/02/17 13:47 hydromorphone HCl Allergy Anaphylaxis Verified 11/02/17 13:47 [From Dilaudid] latex Allergy Swelling Verified 11/02/17 13:47 Penicillins Allergy Rash/Hives Verified 11/02/17 13:47 guaifenesin AdvReac Dizziness Verified 11/02/17 13:47 meclizine AdvReac Nausea & Verified 11/02/17 13:47 Vomiting morphine AdvReac Hallucinati Verified 11/02/17 13:47 ons,vomitin g tramadol AdvReac Nausea & Verified 11/02/17 13:47 Vomiting varenicline AdvReac Hallucinati Verified 11/02/17 13:47 ons Tb skin test Allergy Itching Uncoded 11/02/17 13:47 Surgical - Exam Vital Signs Temp Pulse Resp BP Pulse Ox 97.8 F 72 14 125/80 96 11/07/17 07:16 11/07/17 07:16 11/07/17 07:16 11/07/17 07:16 11/07/17 07:16 - General well developed, no distress - Eyes PERRL - ENT normal pinna - Neck no masses - Respiratory normal expansion - Cardiovascular Rhythm: regular - Abdomen Abdomen: soft, non tender Results - Labs 11/07/17 07:15 Abnormal Lab Results - Last 24 Hours (Table) 11/07/17 Range/Units 07:15 Carbon Dioxide 31 H (22-30) mmol/L Glucose 102 H (74-99) mg/dL ALT 55 H (9-52) U/L Diabetes panel 11/07/17 Range/Units 07:15 Sodium 142 (137-145) mmol/L Potassium 3.9 (3.5-5.1) mmol/L Chloride 105 (98-107) mmol/L Carbon Dioxide 31 H (22-30) mmol/L BUN 11 (7-17) mg/dL Creatinine 0.94 (0.52-1.04) mg/dL Glucose 102 H (74-99) mg/dL Calcium 9.4 (8.4-10.2) mg/dL AST 36 (14-36) U/L ALT 55 H (9-52) U/L Alkaline Phosphatase 65 (38-126) U/L Total Protein 6.8 (6.3-8.2) g/dL Albumin 4.0 (3.5-5.0) g/dL Calcium panel 11/07/17 Range/Units 07:15 Calcium 9.4 (8.4-10.2) mg/dL Albumin 4.0 (3.5-5.0) g/dL Pituitary panel 11/07/17 Range/Units 07:15 Sodium 142 (137-145) mmol/L Potassium 3.9 (3.5-5.1) mmol/L Chloride 105 (98-107) mmol/L Carbon Dioxide 31 H (22-30) mmol/L BUN 11 (7-17) mg/dL Creatinine 0.94 (0.52-1.04) mg/dL Glucose 102 H (74-99) mg/dL Calcium 9.4 (8.4-10.2) mg/dL Adrenal panel 11/07/17 Range/Units 07:15 Sodium 142 (137-145) mmol/L Potassium 3.9 (3.5-5.1) mmol/L Chloride 105 (98-107) mmol/L Carbon Dioxide 31 H (22-30) mmol/L BUN 11 (7-17) mg/dL Creatinine 0.94 (0.52-1.04) mg/dL Glucose 102 H (74-99) mg/dL Calcium 9.4 (8.4-10.2) mg/dL Total Bilirubin 0.7 (0.2-1.3) mg/dL AST 36 (14-36) U/L ALT 55 H (9-52) U/L Alkaline Phosphatase 65 (38-126) U/L Total Protein 6.8 (6.3-8.2) g/dL Albumin 4.0 (3.5-5.0) g/dL Assessment and Plan Assessment: History: Polyps. GI bleed. We'll perform colonoscopy.
--- NOTE | 2017-11-07 08:15 | P.OP ---
Date of Procedure: 11/07/17 Preoperative Diagnosis: Colon polyps GI bleed Postoperative Diagnosis: Diverticulosis Rectal polyp Procedure(s) Performed: Colonoscopy Anesthesia: MAC Surgeon: Jerome Peters Pathology: other (Rectal polyp) Condition: stable Disposition: PACU Description of Procedure: The patient's placed on the endoscopy table in the lateral position. She received IV sedation. Digital rectal exam was performed which revealed no abnormality. The flexible colonoscope was then placed patient anus and passed throughout the entire colon. The ileocecal valve was visualized. The cecum, ascending and transverse colon appeared normal. In the descending and sigmoid colon there is moderate diverticular changes. Scope was then brought back the rectum and a polyp was seen. This was removed the forcep. Scope was withdrawn from patient. There was some minimal internal hemorrhoids.
[2017-11-07 08:20] VITALS: RESP 16
[2017-11-07 08:32] VITALS: BP 124/70; PULSE 64
== END 2017-11-07 09:16 | disposition home or self-care (01) ==
LOC: ORWHC2ENDO 06:53
PROVIDERS: ATTEND Surgery
DX: K62.1 Rectal polyp (principal); K64.8 Other hemorrhoids; F31.9 Bipolar disorder, unspecified; J45.909 Unspecified asthma, uncomplicated; I25.10 Atherosclerotic heart disease of native coronary artery without angina pectoris; J44.9 Chronic obstructive pulmonary disease, unspecified; M79.7 Fibromyalgia; I10 Essential (primary) hypertension; Z87.01 Personal history of pneumonia (recurrent); Z99.89 Dependence on other enabling machines and devices; E11.51 Type 2 diabetes mellitus with diabetic peripheral angiopathy without gangrene; G47.33 Obstructive sleep apnea (adult) (pediatric); I25.119 Atherosclerotic heart disease of native coronary artery with unspecified angina pectoris; F41.9 Anxiety disorder, unspecified; K57.30 Diverticulosis of large intestine without perforation or abscess without bleeding; Z87.891 Personal history of nicotine dependence; Z86.010 Personal history of colon polyps; Z79.82 Long term (current) use of aspirin; Z88.5 Allergy status to narcotic agent; Z88.0 Allergy status to penicillin; Z88.1 Allergy status to other antibiotic agents; Z83.3 Family history of diabetes mellitus; Z79.02 Long term (current) use of antithrombotics/antiplatelets; Z79.899 Other long term (current) drug therapy; Z79.51 Long term (current) use of inhaled steroids; Z88.8 Allergy status to other drugs, medicaments and biological substances; Z91.048 Other nonmedicinal substance allergy status; Z90.5 Acquired absence of kidney
CPT/HCPCS: 88305; 80053; 45380; J2704; 45378

== ENCOUNTER → 2017-11-08 | Outpatient (CLI) | payer MEDICARE, OTHER ==
--- NOTE | 2017-11-09 07:59 | CT ---
EXAMINATION TYPE: CT abdomen wo/w con DATE OF EXAM: 11/08/2017 HISTORY: Abnormal MRI. Liver lesion. CT DLP: 1874mGycm Automated Exposure Control for Dose Reduction was Utilized. CONTRAST: CT scan of the abdomen is performed without and with IV Contrast, patient injected with 100 mL of Iso westley M300. COMPARISON: MRI lumbar spine dated 06/21/2016 and 10/25/2017. FINDINGS: LUNG BASES: No significant abnormality is appreciated. LIVER/GB: Hepatic parenchyma is diffusely hypoattenuated in comparison to that of the spleen, most co mmonly seen in hepatic steatosis. This finding limits evaluation for hepatic masses. This is at least moderate in degree. Within segment 6 of the liver there is an approximately 8 mm arterially enhancin g lesion on series 6 image 25 that has persistent and unchanged enhancement on delayed imaging. Altho ugh there is background hepatic steatosis there is no appreciable evidence of cirrhosis and therefore this most commonly represents a flash filling hemangioma. Gallbladder if surgically absent. PANCREAS: No significant abnormality is seen. SPLEEN: No significant abnormality is seen. ADRENALS: No significant abnormality is seen. KIDNEYS: Left kidney appears surgically absent. No right-sided hydronephrosis or focal renal mass talita reciated. BOWEL: No dilated large or small bowel. LYMPH NODES: No greater than 1cm abdominal or pelvic lymph nodes are appreciated. OSSEOUS STRUCTURES: Postsurgical change of the lumbar spine is seen. Multilevel mild degenerative romelia nge of the spine is noted on CT, better appreciated on the recent MRI. OTHER: There is extensive calcific atheromatous change of the abdominal aorta and its branches with e ctasia infrarenally measuring up to 2.6 cm and a diminutive caliber of the distal aorta and common il iac arteries and their proximal visualized portions. IMPRESSION: 8 mm hepatic lesion within segment 5 near the hepatorenal fossa most likely represents a flash fillin g hemangioma. However short-term follow-up is recommended in 6-12 months to ensure stability as there is background at least moderate hepatic steatosis that can alter perception of enhancement patterns and this lesion was not appreciable on the prior MRI lumbar spine dated 06/21/2016.
== END | disposition home or self-care (01) ==
LOC: RADCTMAIN 12:51
PROVIDERS: ATTEND Family Medicine
DX: K76.89 Other specified diseases of liver (principal); K76.0 Fatty (change of) liver, not elsewhere classified
CPT/HCPCS: 74170; 36415; Q9967

== ENCOUNTER 2018-09-16 07:22 | Day surgery (SDC) | payer MEDICARE ==
[2018-09-11 11:56] VITALS: BMI 42.5
[~2018-09-16 07:22] MED LIST changes: -LIDOCAINE 1% 20 ML VIAL (10MG/ML) FOR IV START INTRADERMA PRN; -MIDAZOLAM 2 MG/2 ML VIAL IV PRN
[2018-09-16 07:47] VITALS: TEMP 97.9
[2018-09-16] MEDS ORDERED: LIDOCAINE 1% 20 ML VIAL (10MG/ML) FOR IV START INTRADERMA ONE (07:59)
[2018-09-16] MEDS ORDERED: PROPOFOL 10 MG/ML 20 ML VIAL IV ONE (08:40)
--- NOTE | 2018-09-16 08:48 | P.GSHP ---
History of Present Illness H&P Date: 09/16/18 Chief Complaint: GERD This is a 58-year-old female who presents safer EGD. Patient's had complaints of GERD. Past Medical History Past Medical History: Asthma, Coronary Artery Disease (CAD), Chest Pain / Angina, COPD, Diabetes Mellitus, Fibromyalgia, Hypertension, Pneumonia, Sleep Apnea/CPAP/BIPAP Additional Past Medical History / Comment(s): Diabetes type II diet controlled, AAA 2.5cm being monitored, PVD and PAD, RASHID with CPAP use, vertigo but none lately. 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 sister-L nephrectomy, several cardiac caths-no stents or ballooning, bilateral femoral stents which occluded with plaque then cleaned out, cervical fusion with plate and 4 screws, cyst removed from back and back surgery with ravi, x2, R hip bone donor, D&C, COLONOSCOPY Past Anesthesia/Blood Transfusion Reactions: No Reported Reaction Additional Past Anesthesia/Blood Transfusion Reaction / Comment(s): first c- section - too much anesthesia Smoking Status: Former smoker - Past Family History Mother Family Medical History: Diabetes Mellitus, Myocardial Infarction ([place]), Pulmonary Embolus Additional Family Medical History / Comment(s): scleroderma. [place] x 4 Father Family Medical History: Musculoskeletal Disorder, Neurologic Disorder Additional Family Medical History / Comment(s): Father is . He had parkinson's dx. Medications and Allergies Home Medications Medication Instructions Recorded Confirmed Type Clopidogrel [Plavix] 75 mg PO DAILY 05/13/15 09/16/18 History Metoprolol Tartrate [Lopressor] 25 mg PO BID 05/13/15 09/16/18 History Nitroglycerin Sl Tabs [Nitrostat] 0.4 mg SUBLINGUAL Q5M PRN 12/01/15 09/16/18 History Budesonide/Formoterol Fumarate 2 puff INHALATION RT-BID 10/31/16 09/16/18 History [Symbicort 160-4.5 Mcg Inhaler] Fluticasone Nasal [place] [Flonase 2 spr EA NOSTRIL DAILY 02/23/17 09/16/18 History Nasal [place]] Isosorbide Mononitrate ER [Imdur] 60 mg PO DAILY 02/23/17 09/16/18 History Sodium Chloride [[place]] 1 spray EA NOSTRIL DAILY PRN 02/23/17 09/16/18 History Albuterol Inhaler [Ventolin Hfa 1 - 2 puff INHALATION RT-Q6H PRN 08/17/17 09/16/18 History Inhaler] Cholecalciferol [Vitamin D3] 1,000 unit PO DAILY 08/17/17 09/16/18 History Pravastatin Sodium [Pravachol] 20 mg PO HS 08/17/17 09/16/18 History Hydrochlorothiazide [Hydrodiuril] 25 mg PO DAILY 09/11/18 09/16/18 History lamoTRIgine [LaMICtal] 100 mg PO HS 09/11/18 09/16/18 History Allergies Allergy/AdvReac Type Severity Reaction Status Date / Time adhesive tape Allergy Rash/Hives Verified 09/16/18 07:41 codeine Allergy Anaphylaxis Verified 09/16/18 07:41 erythromycin base Allergy Rash/Hives Verified 09/16/18 07:41 hydromorphone HCl Allergy Anaphylaxis Verified 09/16/18 07:41 [From Dilaudid] latex Allergy Swelling Verified 09/16/18 07:41 Penicillins Allergy Rash/Hives Verified 09/16/18 07:41 guaifenesin AdvReac Dizziness Verified 09/16/18 07:41 meclizine AdvReac Nausea & Verified 09/16/18 07:41 Vomiting morphine AdvReac Hallucinati Verified 09/16/18 07:41 ons,vomitin g tramadol AdvReac Nausea & Verified 09/16/18 07:41 Vomiting varenicline AdvReac Hallucinati Verified 09/16/18 07:41 ons Tb skin test Allergy Itching Uncoded 09/16/18 07:41 Surgical - Exam Vital Signs Temp Pulse Resp BP Pulse Ox 97.9 F 65 16 97/49 96 09/16/18 07:42 09/16/18 07:42 09/16/18 07:42 09/16/18 07:42 09/16/18 07:42 - General well developed, well nourished, no distress - Eyes PERRL - ENT normal pinna - Neck no masses - Respiratory normal expansion - Cardiovascular Rhythm: regular - Abdomen Abdomen: soft, non tender Assessment and Plan Assessment: GERD. We'll perform EGD.
--- NOTE | 2018-09-16 08:54 | P.OP ---
Date of Procedure: 09/16/18 Preoperative Diagnosis: GERD Postoperative Diagnosis: Antral gastritis No evidence of hiatal hernia Mild esophagitis Procedure(s) Performed: EGD Anesthesia: MAC Surgeon: Jerome Peters Pathology: other (Antrum, esophagus) Condition: stable Disposition: PACU Description of Procedure: Patient's placed on the endoscopy table lateral position. She received IV sedation. The gastroscope placed oropharynx and passed in the esophagus and into the stomach. Scope was then placed through the pylorus. The first and second portion of the duodenum appeared normal, there was retained food in the duodenum.. Scope was then brought back the antrum and this appeared minimally inflamed and a biopsies performed. Scope was then retroflexed and the remainder of the stomach appeared normal. There was retained food in the stomach. This was suggestive of gastroparesis. There was no significant hiatal hernia. The GE junction was at 40 cm. The distal esophagus appeared minimally inflamed. A biopsies performed. The proximal esophagus appeared normal. Scope was withdrawn for patient..
[2018-09-16 09:14] VITALS: PULSE 64
[2018-09-16 09:29] VITALS: BP 101/64; RESP 18
[2018-09-16 09:42] LABS: Glucose,Whole Blood 126 mg/dL (75-99)
== END 2018-09-16 09:39 | disposition home or self-care (01) ==
LOC: ORWHC2ENDO 07:22
PROVIDERS: ATTEND Surgery
DX: K29.50 Unspecified chronic gastritis without bleeding (principal); K21.0 Gastro-esophageal reflux disease with esophagitis; I25.119 Atherosclerotic heart disease of native coronary artery with unspecified angina pectoris; I10 Essential (primary) hypertension; Z87.891 Personal history of nicotine dependence; J44.9 Chronic obstructive pulmonary disease, unspecified; E11.51 Type 2 diabetes mellitus with diabetic peripheral angiopathy without gangrene; M79.7 Fibromyalgia; Z87.01 Personal history of pneumonia (recurrent); G47.33 Obstructive sleep apnea (adult) (pediatric); Z99.89 Dependence on other enabling machines and devices; Z90.49 Acquired absence of other specified parts of digestive tract; Z90.710 Acquired absence of both cervix and uterus; G89.29 Other chronic pain; Z98.51 Tubal ligation status; I71.4 Abdominal aortic aneurysm, without rupture; Z90.5 Acquired absence of kidney; Z95.820 Peripheral vascular angioplasty status with implants and grafts; Z98.1 Arthrodesis status; Z83.3 Family history of diabetes mellitus; Z82.49 Family history of ischemic heart disease and other diseases of the circulatory system; Z79.02 Long term (current) use of antithrombotics/antiplatelets; Z79.51 Long term (current) use of inhaled steroids; Z79.899 Other long term (current) drug therapy; Z88.1 Allergy status to other antibiotic agents; Z91.040 Latex allergy status; Z88.5 Allergy status to narcotic agent; Z88.0 Allergy status to penicillin; Z88.8 Allergy status to other drugs, medicaments and biological substances; Z91.09 Other allergy status, other than to drugs and biological substances; Z91.048 Other nonmedicinal substance allergy status
CPT/HCPCS: 88305; 43239; J2704

== ENCOUNTER → 2018-11-14 | Outpatient (CLI) | payer OTHER ==
--- NOTE | 2018-11-14 20:34 | PN ---
PROGRESS NOTE DATE OF SERVICE: 11/14/2018 This patient is a 58-year-old lady who has been followed in [facility] for treatment of obstructive sleep apnea-hypopnea syndrome. Patient continues to use her CPAP equipment every night for the whole night. She sleeps well with the machine. No significant excessive daytime sleepiness. [place] Sleepiness Scale is 8. I checked her CPAP unit. CPAP pressure is 10 cm of water. For 6 months, usage is 179 out of 180 nights and 161 out of 180 nights for more than 4 hours, with average usage 6.8 hours, which is great compliance. Leak is 22 L/minute, which is borderline for the full-face mask. Recently she has been using a Simplus full-face mask mask. At the same time, reading from the machine of apnea-hypopnea index for the last 6 months is 6.8; for the last one month it is 6.0. The patient has had some changes in her weight, which now is 234 pounds, 20 pounds below her weight one year ago, but at the same time it is 15 pounds more than during titration. MEDICATIONS: 1. Metoprolol. 2. Clopidogrel. 3. Nitroglycerin. 4. Isosorbide. 5. Pravastatin. PHYSICAL EXAMINATION: GENERAL: A pleasant patient in no distress. VITAL SIGNS: BP 122/70, HR 72, RR 16, height 5 feet 2-1/2 inches, weight 234 pounds. Body mass index 42.1. Temperature 97.6. Oxygen saturation at room air 96%. HEENT: PERRLA, EOMI. Evaluation of oropharynx showed tongue protrudes midline. Low position of soft palate. Mallampati IV. NECK: Supple. No JVD. Thyroid is not palpable. LUNGS: Clear to percussion and to auscultation. Good air exchange. No wheezing or rhonchi. HEART: S1, S2 regular. No murmurs, gallops or rubs. ABDOMEN: Obese. EXTREMITIES: No clubbing or cyanosis. RIBBON TIER: Awake, alert, and oriented X3. Cranial nerves 2 to 7 intact. There is no fasciculation or atrophy. noted. No focal deficits observed. IMPRESSION: 1. Obstructive sleep apnea-hypopnea syndrome. Patient has demonstrated great compliance with treatment, benefitting from treatment. 2. Obesity. Patient lost some weight, but it is still more than during the previous titration. 3. Coronary artery disease. 4. Chronic obstructive pulmonary disease. 5. Hypertension. 6. Hyperlipidemia. 7. History of fibromyalgia. 8. Status post left nephrectomy; patient donated left kidney. 9. Status post section. 10.Status post appendectomy. 11.Status post cervical fusion. 12.Status post partial hysterectomy. 13.Status post lumbar fusion, L3, L4. 14.Status post stent insertion to femoral arteries bilaterally. PLAN: 1. Patient will continue to use CPAP equipment every night for the whole night. 2. I will change the regimen of CPAP unit to automatic, with the range of pressure between 8 minimal and 13 cm of water maximal. 3. Losing weight. 4. Sleep hygiene with regular time in bed for at least 7-1/2 or 8 hours. 5. No driving if feeling any sleepiness. 6. I will maintain all necessary prescriptions for CPAP supplies, including full-face mask with heated tube and filters. Thank you very much for allowing me to participate in the management of your patient. Sincerely, Ryder Meza MD, PhD, FAASM Diplomat of [employer] [facility] [place] MMODL / IJN: [id number] /
== END | disposition home or self-care (01) ==
LOC: SLEEP 15:07
PROVIDERS: ATTEND Internal Medicine Critical Care Medicine
DX: G47.33 Obstructive sleep apnea (adult) (pediatric) (principal); E66.9 Obesity, unspecified; I25.10 Atherosclerotic heart disease of native coronary artery without angina pectoris; I10 Essential (primary) hypertension; E78.5 Hyperlipidemia, unspecified; Z95.818 Presence of other cardiac implants and grafts; Z90.711 Acquired absence of uterus with remaining cervical stump; Z90.49 Acquired absence of other specified parts of digestive tract; Z90.5 Acquired absence of kidney; Z98.1 Arthrodesis status; Z98.890 Other specified postprocedural states; Z99.89 Dependence on other enabling machines and devices; Z79.899 Other long term (current) drug therapy

== ENCOUNTER 2018-11-26 14:18 | Observation (INO) | payer MEDICARE, OTHER ==
--- NOTE | 2018-11-26 14:37 | ED ---
Chest Pain HPI - General Chief Complaint: Chest Pain Stated Complaint: Chest pain Time Seen by Provider: 11/26/18 14:31 Source: patient Mode of arrival: wheelchair Limitations: no limitations - History of Present Illness Initial Comments: This is a 58-year-old female the ER for evaluation, has history of chest pain. No current shortness of breath, did take nitro with no help. Nitro 2 did help. Patient is history of spasm artery, history of significant vascular disease with stents placed in both femoral arteries. Patient denies recent travel his [place] no sick contacts no fevers no cough or congestion. Patient currently is having chest pain. Heart catheterization was about one half years ago MD Complaint: chest pain -: days(s) Onset: during rest, during exertion Pain Location: substernal Pain Radiation: none Severity: mild Severity scale (1-10): 2 Quality: tightness Consistency: intermittent Improves With: nothing Worsens With: nothing Treatments Prior to Arrival: none - Related Data Home Medications Medication Instructions Recorded Confirmed Clopidogrel [Plavix] 75 mg PO DAILY 05/13/15 11/26/18 Metoprolol Tartrate [Lopressor] 25 mg PO BID 05/13/15 11/26/18 Nitroglycerin Sl Tabs [Nitrostat] 0.4 mg SUBLINGUAL Q5M PRN 12/01/15 11/26/18 Budesonide/Formoterol Fumarate 2 puff INHALATION RT-BID 10/31/16 11/26/18 [Symbicort 160-4.5 Mcg Inhaler] Fluticasone Nasal [place] [Flonase 2 spr EA NOSTRIL DAILY PRN 02/23/17 11/26/18 Nasal [place]] Isosorbide Mononitrate ER [Imdur] 60 mg PO DAILY 02/23/17 11/26/18 Albuterol Inhaler [Ventolin Hfa 1 - 2 puff INHALATION RT-Q6H PRN 08/17/1711/01 Inhaler] Pravastatin Sodium [Pravachol] 20 mg PO HS 08/17/17 11/26/18 Hydrochlorothiazide [Hydrodiuril] 25 mg PO DAILY 09/11/18 11/26/18 lamoTRIgine [LaMICtal] 100 mg PO HS 09/11/18 11/26/18 Allergies Allergy/AdvReac Type Severity Reaction Status Date / Time adhesive tape Allergy Rash/Hives Verified 11/26/18 14:52 codeine Allergy Anaphylaxis Verified 11/26/18 14:52 erythromycin base Allergy Rash/Hives Verified 11/26/18 14:52 hydromorphone HCl Allergy Anaphylaxis Verified 11/26/18 14:52 [From Dilaudid] latex Allergy Swelling Verified 11/26/18 14:52 Penicillins Allergy Rash/Hives Verified 11/26/18 14:52 guaifenesin AdvReac Dizziness Verified 11/26/18 14:52 meclizine AdvReac Nausea & Verified 11/26/18 14:52 Vomiting morphine AdvReac Hallucinati Verified 11/26/18 14:52 ons,vomitin g tramadol AdvReac Nausea & Verified 11/26/18 14:52 Vomiting varenicline AdvReac Hallucinati Verified 11/26/18 14:52 ons Tb skin test Allergy Itching Uncoded 11/26/18 14:25 Review of Systems ROS Statement: Those systems with pertinent positive or pertinent negative responses have been documented in the HPI. ROS Other: All systems not noted in ROS Statement are negative. EKG Findings - EKG Comments: EKG Findings:: EKG shows sinus rhythm rate of 64, NE 162, QRS 100, QTc 451 Past Medical History Past Medical History: Asthma, Coronary Artery Disease (CAD), Chest Pain / Angina, Diabetes Mellitus, Fibromyalgia, Hypertension Additional Past Medical History / Comment(s): Diabetes type II diet controlled, AAA 2.5cm being monitored, PVD, RASHID with CPAP use, vertigo but none lately. 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 sister-L nephrectomy, several cardiac caths-no stents of ballooning, bilateral femoral stents which occluded with plaque then cleaned out, cervical fusion with plate and 4 screws, cyst removed from back and back surgery with ravi, x2, R hip bone donor, D&C, Past Anesthesia/Blood Transfusion Reactions: No Reported Reaction Additional Past Anesthesia/Blood Transfusion Reaction / Comment(s): first c- section - too much anesthesia Past Psychological History: Anxiety Smoking Status: Current every day smoker Past Alcohol Use History: Rare Past Drug Use History: Marijuana - Past Family History Mother Additional Family Medical History / Comment(s): scleroderma. [place] x 4 Father Family Medical History: Musculoskeletal Disorder, Neurologic Disorder Additional Family Medical History / Comment(s): Father is . He had parkinson's dx. General Exam Limitations: no limitations General appearance: alert, in no apparent distress Head exam: Present: atraumatic, normocephalic, normal inspection Eye exam: Present: normal appearance, PERRL, EOMI. Absent: scleral icterus, conjunctival injection, periorbital swelling ENT exam: Present: normal exam, mucous membranes moist Neck exam: Present: normal inspection. Absent: tenderness, meningismus, lymphadenopathy Respiratory exam: Present: normal lung sounds bilaterally. Absent: respiratory distress, wheezes, rales, rhonchi, stridor Cardiovascular Exam: Present: regular rate, normal rhythm, normal heart sounds. Absent: systolic murmur, diastolic murmur, rubs, gallop, clicks GI/Abdominal exam: Present: soft, normal bowel sounds. Absent: distended, tenderness, guarding, rebound, rigid Extremities exam: Present: normal inspection, full ROM, normal capillary refill. Absent: tenderness, pedal edema, joint swelling, calf tenderness Back exam: Present: normal inspection Neurological exam: Present: alert, oriented X3, CN II-XII intact Psychiatric exam: Present: normal affect, normal mood Skin exam: Present: warm, dry, intact, normal color. Absent: rash Course Vital Signs 11/26/18 11/26/18 14:21 15:01 Temperature 98.6 F Pulse Rate 71 65 Respiratory 16 18 Rate Blood Pressure 122/59 106/46 O2 Sat by Pulse 97 97 Oximetry - Reevaluation(s) Reevaluation #1: 11/26/18 15:13 Medical records reviewed including prior heart catheterization Chest Pain MDM - MDM 68 female the ER for evaluation presents today for evaluation regarding chest pain. Patient having left-sided chest pain left chest pain improved with nitro took 2 this time. Patient be admitted for unstable angina, chest pain obser vation Critical Care Time Critical Care Time: Yes Total Critical Care Time: 31 Disposition Clinical Impression: Unstable angina, Chest pain Disposition: ADMITTED IP TO [facility] Condition: Fair Instructions (If sedation given, give patient instructions): Chest Pain (ED) Is patient prescribed a controlled substance at d/c from ED?: No Referrals: Lashaun Dobson DO [Primary Care Provider] - 1-2 days
[2018-11-26 15:12] LABS: Basophils # (A) 0.1 k/uL (0-0.2); Basophils % (A) 1 %; Eosinophils # (A) 0.3 k/uL (0-0.7); Eosinophils % (A) 3 %; HCT 47.5 % (34.0-46.0); HGB 15.5 gm/dL (11.4-16.0); Lymphocytes # (A) 2.7 k/uL (1.0-4.8); Lymphocytes % (A) 27 %; MCH 30.7 pg (25.0-35.0); MCHC 32.5 g/dL (31.0-37.0); MCV 94.3 fL (80.0-100.0); Mean Platelet Volume 6.6; Monocytes # (A) 0.9 k/uL (0-1.0); Monocytes % (A) 9 %; Neutrophils # (A) 5.9 k/uL (1.3-7.7); Neutrophils % (A) 60 %; Platelet Count 276 k/uL (150-450); RBC 5.03 m/uL (3.80-5.40); RDW 13.4 % (11.5-15.5); WBC 9.9 k/uL (3.8-10.6)
[2018-11-26 15:22] LABS: Partial Thromboplastin Time 23.4 sec (22.0-30.0); Prothrombin Time 10.3 sec (9.0-12.0)
--- NOTE | 2018-11-26 15:32 | XR ---
EXAMINATION TYPE: XR chest 2V DATE OF EXAM: 11/26/2018 COMPARISON: 08/17/2017 HISTORY: Chest pain TECHNIQUE: Frontal and lateral views of the chest are obtained. FINDINGS: There is no focal air space opacity, pleural effusion, or pneumothorax seen. Strand-like p erihilar atelectasis. New central peribronchial cuffing is seen on the lateral view that was not pres ent on the prior exam. The cardiac silhouette size is within normal limits. The osseous structures are intact. Mild multilevel degenerative changes of the thoracic spine and postsurgical change of th e cervical spine. IMPRESSION: There is new peribronchial cuffing in comparison to the prior exam of 08/17/2017. Consider reactive or infectious airway disease such as bronchitis. Strand-like perihilar subsegmental atelect asis is also seen.
[2018-11-26 15:45] LABS: Calcium 9.5 mg/dL (8.4-10.2); Potassium 3.7 mmol/L (3.5-5.1); Total Bilirubin 0.4 mg/dL (0.2-1.3); Total Protein 6.9 g/dL (6.3-8.2)
[2018-11-26] MEDS ORDERED: NITROGLYCERIN SL TABS 0.4 MG TAB SUBLINGUAL PRN (16:11)
[2018-11-26] MEDS ORDERED: HEPARIN SODIUM,PORCINE 5,000 UNIT/ML 1 ML VIAL IV ONE (16:11)
[2018-11-26] MEDS ORDERED: HEPARIN SODIUM,PORCINE 5,000 UNIT/ML 1 ML VIAL IV PRN (16:11)
[2018-11-26] MEDS ORDERED: ASPIRIN 81 MG PO STA (16:11)
[2018-11-26] MEDS ORDERED: HEPARIN SOD,PORK IN 0.45% NACL 25,000 UNIT in 0.45% NACL 1 250ML.BAG IV SCH (16:15)
[2018-11-26] MEDS ORDERED: SODIUM CHLORIDE 0.9% 1,000 ML IV SCH (16:15)
[2018-11-26] MEDS ORDERED: ONDANSETRON 4 MG/2 ML VIAL IVP PRN (18:58)
[2018-11-26] MEDS ORDERED: ONDANSETRON 4 MG/2 ML VIAL IVP STA (18:58)
[2018-11-26] MEDS ORDERED: ACETAMINOPHEN TAB 500 MG TAB PO STA (18:58)
[2018-11-26 20:32] VITALS: BMI 43.1
[2018-11-26] MEDS ORDERED: lamoTRIgine 100 MG TAB PO SCH (21:00)
[2018-11-26] MEDS ORDERED: PRAVASTATIN SODIUM 20 MG TAB PO SCH (21:00)
[2018-11-26] MEDS: METOPROLOL TARTRATE 25 MG TAB PO SCH (21:07)
[2018-11-27 05:34] LABS: Mean Platelet Volume 6.8; Platelet Count 247 k/uL (150-450)
[2018-11-27 05:35] LABS: Cholesterol 147 mg/dL (<200); HDL Cholesterol 55 mg/dL (40-60); LDL Cholesterol,Calculated 66 mg/dL (0-99); Triglycerides 130 mg/dL (<150)
[2018-11-27] MEDS ORDERED: SYMBICORT 160-4.5 MCG INHALER INHALATION SCH (08:00)
[2018-11-27 09:00] VITALS: RESP 17
[2018-11-27] MEDS ORDERED: ISOSORBIDE MONONITRATE ER 60 MG TAB.ER.24H PO SCH (09:00)
[2018-11-27] MEDS ORDERED: CLOPIDOGREL 75 MG TAB PO SCH (09:00)
[2018-11-27] MEDS ORDERED: HYDROCHLOROTHIAZIDE 25 MG TAB PO SCH (09:00)
[2018-11-27] MEDS ORDERED: ASPIRIN 325 MG TAB PO SCH (09:00)
[2018-11-27] MEDS ORDERED: ASPIRIN 81 MG PO SCH (09:00)
--- NOTE | 2018-11-27 09:28 | P.HPIM ---
History of Present Illness H&P Date: 11/27/18 Sneha Carmona is a 58 yo F with PMH significant for CAD, peripheral vascular disease with femoral stenting, HTN, HLD, tobacco abuse who presented to the ED after experiencing chest pain at home. She states this started Sunday night she was watching TV and began to experience substernal chest pain and pressure. No nausea or diaphoresis at that time. She took nitroglycerin and then 30 mins later when her pain was still present took another. She was then able to sleep but the next day she woke up and again experienced chest pain so came to the hospital. She follows with Dr. Park and last had stress test approx 1 year ago which she reports was normal and had a coronary catheterization about a year and a half ago which she states showed 30% blockages. Prior to this week she had not experienced any chest pain for months. She denies sick contacts, fever, chills, or generalized malaise. In the ED her vitals were stable, EKG NSR, troponin negative. Review of Systems All systems: negative Constitutional: Denies chills, Denies fever Eyes: denies blurred vision, denies pain Ears, nose, mouth and throat: Denies headache, Denies sore throat Cardiovascular: Reports chest pain, Reports decreased exercise tolerance, Denies lightheadedness, Denies orthopnea, Denies palpitations, Denies shortness of breath Respiratory: Denies cough Gastrointestinal: Denies abdominal pain, Denies diarrhea, Denies nausea, Denies vomiting Genitourinary: Denies dysuria, Denies hematuria Musculoskeletal: Denies myalgias Integumentary: Denies pruritus, Denies rash Neurological: Denies numbness, Denies weakness Psychiatric: Denies anxiety, Denies depression Endocrine: Denies fatigue, Denies weight change Past Medical History Past Medical History: Asthma, Coronary Artery Disease (CAD), Chest Pain / Angina, Diabetes Mellitus, Fibromyalgia, Hypertension Additional Past Medical History / Comment(s): Diabetes type II diet controlled, AAA 2.5cm being monitored, PVD, RASHID with CPAP use, vertigo but none lately. 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 sister-L nephrectomy, several cardiac caths-0 stents, bilateral femoral stents which occluded with plaque then cleaned out, cervical fusion with plate and 4 screws, cyst removed from back and back surgery with ravi, x2, R hip bone donor, D&C, Past Anesthesia/Blood Transfusion Reactions: No Reported Reaction Additional Past Anesthesia/Blood Transfusion Reaction / Comment(s): first c- section - too much anesthesia Past Psychological History: Anxiety Additional Psychological History / Comment(s): ptsd not medicated for Smoking Status: Current every day smoker Past Alcohol Use History: None Reported, Rare Additional Past Alcohol Use History / Comment(s): Pt started smoking at age 16 (1976). Past Drug Use History: Marijuana Additional Drug Use History / Comment(s): USES MARIjuana 4 since used - Past Family History Mother Additional Family Medical History / Comment(s): scleroderma. [place] x 4 Father Family Medical History: Musculoskeletal Disorder, Neurologic Disorder Additional Family Medical History / Comment(s): Father is . He had parkinson's dx. Medications and Allergies Home Medications Medication Instructions Recorded Confirmed Type Clopidogrel [Plavix] 75 mg PO DAILY 05/13/15 11/26/18 History Metoprolol Tartrate [Lopressor] 25 mg PO BID 05/13/15 11/26/18 History Nitroglycerin Sl Tabs [Nitrostat] 0.4 mg SUBLINGUAL Q5M PRN 12/01/15 11/26/18 History Budesonide/Formoterol Fumarate 2 puff INHALATION RT-BID 10/31/16 11/26/18 History [Symbicort 160-4.5 Mcg Inhaler] Fluticasone Nasal [place] [Flonase 2 spr EA NOSTRIL DAILY PRN 02/23/17 11/26/18 History Nasal [place]] Isosorbide Mononitrate ER [Imdur] 60 mg PO DAILY 02/23/17 11/26/18 History Albuterol Inhaler [Ventolin Hfa 1 - 2 puff INHALATION RT-Q6H PRN 08/17/17 11/26/18 History Inhaler] Pravastatin Sodium [Pravachol] 20 mg PO HS 08/17/17 11/26/18 History Hydrochlorothiazide [Hydrodiuril] 25 mg PO DAILY 09/11/18 11/26/18 History lamoTRIgine [LaMICtal] 100 mg PO HS 09/11/18 11/26/18 History Allergies Allergy/AdvReac Type Severity Reaction Status Date / Time adhesive tape Allergy Rash/Hives Verified 11/26/18 20:13 codeine Allergy Anaphylaxis Verified 11/26/18 20:13 erythromycin base Allergy Rash/Hives Verified 11/26/18 20:13 hydromorphone HCl Allergy Anaphylaxis Verified 11/26/18 20:13 [From Dilaudid] latex Allergy Swelling Verified 11/26/18 20:13 Penicillins Allergy Rash/Hives Verified 11/26/18 20:13 guaifenesin AdvReac Dizziness Verified 11/26/18 20:13 meclizine AdvReac Nausea & Verified 11/26/18 20:13 Vomiting morphine AdvReac Hallucinati Verified 11/26/18 20:13 ons,vomitin g tramadol AdvReac Nausea & Verified 11/26/18 20:13 Vomiting varenicline AdvReac Hallucinati Verified 11/26/18 20:13 ons Tb skin test Allergy Itching Uncoded 11/26/18 20:13 Physical Exam Vitals: Vital Signs Temp Pulse Pulse Resp BP BP BP 11/27/18 08:00 98.2 F 61 17 114/62 11/27/18 02:41 97.3 F L 63 18 118/57 11/27/18 00:00 97.8 F 63 19 142/79 11/26/18 20:00 97.8 F 65 18 147/80 11/26/18 19:20 97.4 F L 66 17 110/75 11/26/18 17:00 65 18 130/61 11/26/18 16:00 67 18 102/68 11/26/18 15:01 65 18 106/46 11/26/18 14:21 98.6 F 71 16 122/59 Pulse Ox 11/27/18 08:00 94 L 11/27/18 02:41 95 11/27/18 00:00 98 11/26/18 20:00 95 11/26/18 19:20 96 11/26/18 17:00 98 11/26/18 16:00 99 11/26/18 15:01 97 11/26/18 14:21 97 Intake and Output 11/26/18 11/27/18 11/27/18 22:59 06:59 14:59 Intake Total 87.316 Balance 87.316 Intake: Intake, IV Titration 87.316 Amount Heparin Sod,Pork in 0.45% 87.316 NaCl 25,000 unit In 0.45 % NaCl 1 250ml.bag @ 9.34 UNITS/KG/HR 9.998 mls/hr IV .Q24H [facility] Rx#: [id number] General: well nourished, well developed, NAD. Vitals reviewed Eyes: PERRL, EOMI, conjunctiva normal HENT: normocephalic, mucus membranes moist Neck: supple, no JVD Lungs: normal respiratory effort, no wheezes or rales CV: Regular rate and rhythm, no murmur. Peripheral pulses 2+ Abdomen: soft, nondistended, no organomegaly Lymph: no cervical or axillary LAD Skin: warm and dry. No edema Neuro: A&Ox3, normal mood and affect Results CBC & Chem 7: 11/27/18 03:04 11/26/18 15:00 Labs: Abnormal Lab Results - Last 24 Hours (Table) 11/26/18 11/26/18 11/26/18 Range/Units 15:00 15:00 22:26 Hct 47.5 H (34.0-46.0) % APTT 42.7 H (22.0-30.0) sec Chloride 109 H (98-107) mmol/L Glucose 118 H (74-99) mg/dL AST 47 H (14-36) U/L ALT 54 H (9-52) U/L 11/27/18 11/27/18 Range/Units 03:04 08:42 Hct (34.0-46.0) % APTT 41.4 H 45.0 H (22.0-30.0) sec Chloride (98-107) mmol/L Glucose (74-99) mg/dL AST (14-36) U/L ALT (9-52) U/L Thrombosis Risk Factor Assmnt - Choose All That Apply Any of the Below Risk Factors Present?: No Other Risk Factors: No Other congenital or acquired thrombophilia - If yes, enter type in comment: No Thrombosis Risk Factor Assessment Level: Very Low Risk Assessment and Plan (1) Unstable angina Current Visit: Yes Status: Acute Code(s): I20.0 - UNSTABLE ANGINA SNOMED Code(s): 6557673 (2) Chest pain Current Visit: Yes Status: Acute Code(s): R07.9 - CHEST PAIN, UNSPECIFIED SNOMED Code(s): 10439073 (3) Coronary vasospasm Current Visit: No Status: Acute Code(s): I20.1 - ANGINA PECTORIS WITH DOCUMENTED SPASM SNOMED Code(s): 06451551 (4) Coronary artery disease Current Visit: Yes Status: Acute Code(s): I25.10 - ATHSCL HEART DISEASE OF [place] CORONARY ARTERY W/O ANG PCTRS SNOMED Code(s): 71240340 (5) Hypertension Current Visit: Yes Status: Acute Code(s): I10 - ESSENTIAL (PRIMARY) HYPERTENSION SNOMED Code(s): 21555281 (6) Tobacco abuse Current Visit: Yes Status: Acute Code(s): Z72.0 - TOBACCO USE SNOMED Code(s): 653637025 (7) Hyperlipemia, mixed Current Visit: Yes Status: Acute Code(s): E78.2 - MIXED HYPERLIPIDEMIA SNOMED Code(s): 346927965 (8) Peripheral arterial disease Current Visit: Yes Status: Acute Code(s): I73.9 - PERIPHERAL VASCULAR DISEASE, UNSPECIFIED SNOMED Code(s): 160611776 Plan: 1. Unstable angina. EKG NSR and trop negative x3. ACS ruled out. Likely secondary to coronary vasospasm. Heparin gtt. Plan for echo today. Further workup per cardiology 2. CAD. Continue BB, statin 3. HTN. Continue HCTZ 4. Peripheral vascular disease with femoral stenting. Continue plavix and ASA
[2018-11-27] MEDS: METOPROLOL TARTRATE 25 MG TAB PO SCH (09:38)
--- NOTE | 2018-11-27 10:01 | ECHOF ---
Referral Reason:cp MEASUREMENTS -------- HEIGHT: 157.5 cm WEIGHT: 107.0 kg BP: 118/57 RVIDd: 3.4 cm (< 3.3) IVSd: 1.1 cm (0.6 - 1.1) LVIDd: 5.1 cm (3.9 - 5.3) LVPWd: 0.9 cm (0.6 - 1.1) IVSs: 1.8 cm LVIDs: 3.4 cm LVPWs: 1.5 cm LA Diam: 3.4 cm (2.7 - 3.8) LAESV Index (A-L): 18.39 ml/m Ao Diam: 3.2 cm (2.0 - 3.7) AV Cusp: 1.8 cm (1.5 - 2.6) MV EXCURSION: 18.872 mm (> 18.000) MV EF SLOPE: 118 mm/s (70 - 150) EPSS: 0.2 cm MV E Diego: 0.68 m/s MV DecT: 257 ms MV A Diego: 0.62 m/s MV E/A Ratio: 1.11 FINDINGS -------- Sinus rhythm. This was a technically adequate study. The left ventricular size is normal. There is borderline concentric left ventricular hypertrophy. Overall left ventricular systolic function is normal with, an EF between 60 - 65 %. The right ventricle is mildly enlarged. Normal LA size by volume 22+/-6 ml/m2. The right atrium is normal in size. Interatrial and interventricular septum intact. The aortic valve is trileaflet and appears structurally normal. There is trace to mild mitral regurgitation. The tricuspid valve appears structurally normal. The pulmonic valve was not well visualized. The aortic root size is normal. There is no pericardial effusion. CONCLUSIONS -------- 1. Sinus rhythm. 2. This was a technically adequate study. 3. The left ventricular size is normal. 4. There is borderline concentric left ventricular hypertrophy. 5. Overall left ventricular systolic function is normal with, an EF between 60 - 65 %. 6. The right ventricle is mildly enlarged. 7. Normal LA size by volume 22+/-6 ml/m2. 8. The right atrium is normal in size. 9. Interatrial and interventricular septum intact. 10. The aortic valve is trileaflet and appears structurally normal. 11. There is trace to mild mitral regurgitation. 12. The tricuspid valve appears structurally normal. 13. The pulmonic valve was not well visualized. 14. The aortic root size is normal. 15. There is no pericardial effusion. SUPERINTENDENT STATIONS: Jeri Betancourt RDCS
--- NOTE | 2018-11-27 11:29 | P.CRDCN ---
History of Present Illness History of present illness: This is a pleasant 58-year-old female past medical history significant for mild nonobstructive coronary artery disease, hypertension, COPD, dyslipidemia and chronic nicotine dependence. She follows in the office with Dr. Park. She underwent cardiac catheterization in 2016 revealing mild 20-30% disease of the RCA, otherwise normal coronary arteries. We have been asked to see her in consultation secondary to chest discomfort. She states on Sunday she had left precordial pain that radiated down the left upper arm with associated nuasea and left breast pain that was worse with exertion. She was walking around the house after doing dishes when this occurred. She took 2 nitro and imdur. Her pain went away then woke up Sunday and felt fatigued. She started doing normal activities and pain returned, prompting her to come to the emergency room for further evaluation. She had no associated shortness of breath, vomiting, palpitations or diaphoresis. She is seen and examined resting comfortably in the past. She has no further symptoms of chest discomfort since coming to the hospital. EKG reveals sinus mechanism with no acute ST or T wave abnormalities noted heart rate of 64. Chest x-ray reveals peribronchial cuffing. Laboratory data reviewed, CBC unremarkable, sodium 139, potassium 3.7, creatinine 0.91, AST 47, ALT 54, cardiac enzymes negative 3, LDL 66, proBNP 132. Current cardiac medications include pravastatin 20 mg daily, lopressor 25 mg BID, imdur 60 mg daily, hydrochlorothiazide 25 mg daily and plavix 75 mg daily. Most recent stress test in the office 04/2018 was negative for reversibility. Most recent echocardiogram obtained 03/2018 revealed preserved LV systolic function with EF 55%, no valvular abnormalities. At the time of my exam: CONSTITUTIONAL: Denies fever. Denies chills. EYES: Denies blurred vision. Denies vision changes. Denies eye pain. EARS, NOSE, MOUTH & THROAT: Denies headache. Denies sore throat. Denies ear pain. CARDIOVASCULAR: Denies chest pain. Denies shortness of breath. Denies orthopnea. Denies PND. Denies palpitations. RESPIRATORY: Denies cough. GASTROINTESTINAL: Denies abdominal pain. Denies diarrhea. Denies constipation. Denies nausea. Denies vomiting. MUSCULOSKELETAL: Denies myalgias. INTEGUMENTARY: Denies pruitis. Denies rash. NEUROLOGIC: Denies numbness. Denies tingling. Denies weakness. PSYCHIATRIC: Denies anxiety. Denies depression. ENDOCRINE: Denies fatigue. Denies weight change. Denies polydipsia. Denies polyurina. GENITOURINARY: Denies burning, hematuria or urgency with micturation. HEMATOLOGIC: Denies history of anemia. Denies bleeding. Blood pressure 151/79 heart rate 66 afebrile maintaining oxygen saturation on nasal cannula GENERAL: This is a 52-year-old female in no apparent distress at the time of my examination. HEENT: Head is atraumatic, normocephalic. Pupils are equal, round. Sclerae anicteric. Conjunctivae are clear. Mucous membranes of the mouth are moist. Neck is supple. There is no jugular venous distention. No carotid bruit is heard. LUNGS: Clear to auscultation no wheezes, rales or rhonchi. No chest wall tenderness is noted on palpation or with deep breathing. HEART: Regular rate and rhythm without murmurs, rubs or gallops. S1 and S2 heard. ABDOMEN: Soft, nontender. Bowel sounds are heard. No organomegaly noted. EXTREMITIES: No evidence of peripheral edema and no calf tenderness noted. VASCULAR: Radial and dorsalis pedis pulses palpated, no evidence of clubbing. NEUROLOGIC: Patient is awake, alert and oriented x3. ASSESSMENT Precoridal chest pain, atypical. Possibly secondary to spasm. An acute event has been ruled out. Recent normal stress test. History mild non-obstructive CAD COPD Hypertension Chronic nicotine dependence PLAN An acute event has been ruled out. Increase activity and ambulation in the halls. If she remains chest pain free with activity she may be discharged home to follow up with Dr. Park in the office. Thank you kindly for this consultation. Nurse Practitioner note has been reviewed, I agree with a documented findings and plan of care. Patient was seen and examined. Past Medical History Past Medical History: Asthma, Coronary Artery Disease (CAD), Chest Pain / Shelly na, Diabetes Mellitus, Fibromyalgia, Hypertension Additional Past Medical History / Comment(s): Diabetes type II diet controlled, AAA 2.5cm being monitored, PVD, RASHID with CPAP use, vertigo but none lately. 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 sister-L nephrectomy, several cardiac caths-0 stents, bilateral femoral stents which occluded with plaque then cleaned out, cervical fusion with plate and 4 screws, cyst removed from back and back surgery with ravi, x2, R hip bone donor, D&C, Past Anesthesia/Blood Transfusion Reactions: No Reported Reaction Additional Past Anesthesia/Blood Transfusion Reaction / Comment(s): first c- section - too much anesthesia Past Psychological History: Anxiety Additional Psychological History / Comment(s): ptsd not medicated for Smoking Status: Current every day smoker Past Alcohol Use History: None Reported, Rare Additional Past Alcohol Use History / Comment(s): Pt started smoking at age 16 (1976). Past Drug Use History: Marijuana Additional Drug Use History / Comment(s): USES MARIjuana 4 since used - Past Family History Mother Additional Family Medical History / Comment(s): scleroderma. [place] x 4 Father Family Medical History: Musculoskeletal Disorder, Neurologic Disorder Additional Family Medical History / Comment(s): Father is . He had parkinson's dx. Medications and Allergies Home Medications Medication Instructions Recorded Confirmed Type Clopidogrel [Plavix] 75 mg PO DAILY 05/13/15 11/26/18 History Metoprolol Tartrate [Lopressor] 25 mg PO BID 05/13/15 11/26/18 History Nitroglycerin Sl Tabs [Nitrostat] 0.4 mg SUBLINGUAL Q5M PRN 12/01/15 11/26/18 History Budesonide/Formoterol Fumarate 2 puff INHALATION RT-BID 10/31/16 11/26/18 History [Symbicort 160-4.5 Mcg Inhaler] Fluticasone Nasal [place] [Flonase 2 spr EA NOSTRIL DAILY PRN 02/23/17 11/26/18 History Nasal [place]] Isosorbide Mononitrate ER [Imdur] 60 mg PO DAILY 02/23/17 11/26/18 History Albuterol Inhaler [Ventolin Hfa 1 - 2 puff INHALATION RT-Q6H PRN 08/17/17 11/26/18 History Inhaler] Pravastatin Sodium [Pravachol] 20 mg PO HS 08/17/17 11/26/18 History Hydrochlorothiazide [Hydrodiuril] 25 mg PO DAILY 09/11/18 11/26/18 History lamoTRIgine [LaMICtal] 100 mg PO HS 09/11/18 11/26/18 History Allergies Allergy/AdvReac Type Severity Reaction Status Date / Time adhesive tape Allergy Rash/Hives Verified 11/26/18 20:13 codeine Allergy Anaphylaxis Verified 11/26/18 20:13 erythromycin base Allergy Rash/Hives Verified 11/26/18 20:13 hydromorphone HCl Allergy Anaphylaxis Verified 11/26/18 20:13 [From Dilaudid] latex Allergy Swelling Verified 11/26/18 20:13 Penicillins Allergy Rash/Hives Verified 11/26/18 20:13 guaifenesin AdvReac Dizziness Verified 11/26/18 20:13 meclizine AdvReac Nausea & Verified 11/26/18 20:13 Vomiting morphine AdvReac Hallucinati Verified 11/26/18 20:13 ons,vomitin g tramadol AdvReac Nausea & Verified 11/26/18 20:13 Vomiting varenicline AdvReac Hallucinati Verified 11/26/18 20:13 ons Tb skin test Allergy Itching Uncoded 11/26/18 20:13 Physical Exam Vitals: Vital Signs Temp Pulse Pulse Resp BP BP Pulse Ox 11/27/18 02:41 97.3 F L 63 18 118/57 95 11/27/18 00:00 97.8 F 63 19 142/79 98 11/26/18 20:00 97.8 F 65 18 147/80 95 11/26/18 19:20 97.4 F L 66 17 110/75 96 11/26/18 17:00 65 18 130/61 98 11/26/18 16:00 67 18 102/68 99 11/26/18 15:01 65 18 106/46 97 11/26/18 14:21 98.6 F 71 16 122/59 97 Intake and Output 11/26/18 11/27/18 11/27/18 22:59 06:59 14:59 Intake Total 87.316 Balance 87.316 Intake: Intake, IV Titration 87.316 Amount Heparin Sod,Pork in 0.45% 87.316 NaCl 25,000 unit In 0.45 % NaCl 1 250ml.bag @ 9.34 UNITS/KG/HR 9.998 mls/hr IV .Q24H [facility] Rx#: [id number] Results 11/27/18 03:04 11/26/18 15:00 Cardiac Enzymes 11/26/18 11/26/18 11/26/18 Range/Units 15:00 15:00 22:26 AST 47 H (14-36) U/L Troponin I <0.012 <0.012 (0.000-0.034) ng/mL 11/27/18 Range/Units 03:04 AST (14-36) U/L Troponin I <0.012 (0.000-0.034) ng/mL Coagulation 11/26/18 11/26/18 11/27/18 Range/Units 15:00 22: 03:04 PT 10.3 (9.0-12.0) sec APTT 23.4 42.7 H 41.4 H (22.0-30.0) sec Lipids 11/27/18 Range/Units 03:04 Triglycerides 130 (<150) mg/dL Cholesterol 147 (<200) mg/dL HDL Cholesterol 55 (40-60) mg/dL CBC 11/26/18 11/27/18 Range/Units 15:00 03:04 WBC 9.9 (3.8-10.6) k/uL RBC 5.03 (3.80-5.40) m/uL Hgb 15.5 (11.4-16.0) gm/dL Hct 47.5 H (34.0-46.0) % Plt Count 276 247 (150-450) k/uL Comprehensive Metabolic Panel 11/26/18 Range/Units 15:00 Sodium 139 (137-145) mmol/L Potassium 3.7 (3.5-5.1) mmol/L Chloride 109 H (98-107) mmol/L Carbon Dioxide 24 (22-30) mmol/L BUN 11 (7-17) mg/dL Creatinine 0.91 (0.52-1.04) mg/dL Glucose 118 H (74-99) mg/dL Calcium 9.5 (8.4-10.2) mg/dL AST 47 H (14-36) U/L ALT 54 H (9-52) U/L Alkaline Phosphatase 95 (38-126) U/L Total Protein 6.9 (6.3-8.2) g/dL Albumin 4.0 (3.5-5.0) g/dL Current Medications Generic Name Dose Route Start Last Admin Trade Name Freq PRN Reason Stop Dose Admin Aspirin 325 mg 11/27/18 09:00 Aspirin PO DAILY [facility] Budesonide/Formoterol Fumarate 2 puff 11/27/18 08:00 11/27/18 08:15 Symbicort 160-4.5 Mcg Inhaler INHALATION Not Given RT-BID [facility] Clopidogrel Bisulfate 75 mg 11/27/18 09:00 Plavix PO DAILY [facility] Heparin Sodium (Porcine) 0 unit 11/26/18 16:11 Heparin IV Q6HR PRN Low PTT Protocol Hydrochlorothiazide 25 mg 11/27/18 09:00 Hydrodiuril PO DAILY [facility] Heparin Sodium/Sodium Chloride 250 mls @ 9.998 mls/hr 11/26/18 16:15 11/27/18 02:01 25,000 unit/ Sodium Chloride IV 11.34 units/kg/hr .Q24H [facility] 12.139 mls/hr Titration Protocol 9.34 UNITS/KG/HR Sodium Chloride 1,000 mls @ 20 mls/hr 11/26/18 16:15 11/26/18 17:02 Saline 0.9% IV 20 mls/hr .Q24H [facility] Administration Isosorbide Mononitrate 60 mg 11/27/18 09:00 Imdur PO DAILY [facility] Lamotrigine 100 mg 11/26/18 21:00 11/26/18 21:07 Lamictal PO 100 mg HS [facility] Administration Metoprolol Tartrate 25 mg 11/26/18 21:00 11/26/18 21:07 Lopressor PO 25 mg BID [facility] Administration Nitroglycerin 0.4 mg 11/26/18 16:11 Nitrostat SUBLINGUAL Q5M PRN Chest Pain Ondansetron HCl 4 mg 11/26/18 18:58 Zofran IVP Q6HR PRN Nausea And Vomiting Pravastatin Sodium 20 mg 11/26/18 21:00 11/26/18 21:18 Pravachol PO 20 mg HS [facility] Administration Intake and Output 11/26/18 11/27/18 11/27/18 22:59 06:59 14:59 Intake Total 87.316 Balance 87.316 Intake: Intake, IV Titration 87.316 Amount Heparin Sod,Pork in 0.45% 87.316 NaCl 25,000 unit In 0.45 % NaCl 1 250ml.bag @ 9.34 UNITS/KG/HR 9.998 mls/hr IV .Q24H [facility] Rx#: [id number] 11/27/18 03:04 11/26/18 15:00
[2018-11-27 12:20] VITALS: BP 99/65; PULSE 60; TEMP 97.8
--- NOTE | 2018-11-28 10:43 | P.DS ---
Providers Date of admission: 11/26/18 15:43 Expected date of discharge: 11/27/18 Attending physician: Fabrice Dobson MD Consults: 11/26/18 16:11 Consult Physician Urgent Consulting Provider: Tim Park Consult Reason/Comments: cp Do you want consulting provider notified?: Yes Primary care physician: Lashaun Dobson - Discharge Diagnosis(es) (1) Unstable angina Status: Acute (2) Chest pain Status: Acute (3) Coronary vasospasm Status: Acute (4) Coronary artery disease Status: Acute (5) Hypertension Status: Acute (6) Tobacco abuse Status: Acute (7) Hyperlipemia, mixed Status: Acute (8) Peripheral arterial disease Status: Acute Hospital Course: Sneha Carmona is a 58 yo F with PMH significant for CAD, peripheral vascular disease with femoral stenting, HTN, HLD, tobacco abuse who presented to the ED after experiencing chest pain at home. She states this started Sunday night she was watching TV and began to experience substernal chest pain and pressure. No nausea or diaphoresis at that time. She took nitroglycerin and then 30 mins later when her pain was still present took another. She was then able to sleep but the next day she woke up and again experienced chest pain so came to the hospital. She follows with Dr. Park and last had stress test approx 1 year ago which she reports was normal and had a coronary catheterization about a year and a half ago which she states showed 30% blockages. Prior to this week she had not experienced any chest pain for months. She denies sick contacts, fever, chills, or generalized malaise. In the ED her vitals were stable, EKG NSR, troponin negative. She was admitted to medicine and cardiology was consulted. Troponin trended x3. Pt underwent Echocardiogram which was unremarkable. She was cleared by cardiology and discharged home in stable condition. She is recommended to follow up with PCP and Cardiology and can consider starting [facility] outpatient. Patient Condition at Discharge: Fair Plan - Discharge Summary Discharge Rx Participant: No New Discharge Prescriptions: Continue Metoprolol Tartrate [Lopressor] 25 mg PO BID Clopidogrel [Plavix] 75 mg PO DAILY Nitroglycerin Sl Tabs [Nitrostat] 0.4 mg SUBLINGUAL Q5M PRN PRN Reason: Chest Pain Budesonide/Formoterol Fumarate [Symbicort 160-4.5 Mcg Inhaler] 2 puff INHALATION RT-BID Isosorbide Mononitrate ER [Imdur] 60 mg PO DAILY Fluticasone Nasal [place] [Flonase Nasal [place]] 2 spr EA NOSTRIL DAILY PRN PRN Reason: Allergy Symptoms Albuterol Inhaler [Ventolin Hfa Inhaler] 1 - 2 puff INHALATION RT-Q6H PRN PRN Reason: Shortness Of Breath Pravastatin Sodium [Pravachol] 20 mg PO HS lamoTRIgine [LaMICtal] 100 mg PO HS Hydrochlorothiazide [Hydrodiuril] 25 mg PO DAILY Discharge Medication List Clopidogrel [Plavix] 75 mg PO DAILY 05/13/15 [History] Metoprolol Tartrate [Lopressor] 25 mg PO BID 05/13/15 [History] Nitroglycerin Sl Tabs [Nitrostat] 0.4 mg SUBLINGUAL Q5M PRN 12/01/15 [History] Budesonide/Formoterol Fumarate [Symbicort 160-4.5 Mcg Inhaler] 2 puff INHALATION RT-BID 10/31/16 [History] Fluticasone Nasal [place] [Flonase Nasal [place]] 2 spr EA NOSTRIL DAILY PRN 02/23/17 [History] Isosorbide Mononitrate ER [Imdur] 60 mg PO DAILY 02/23/17 [History] Albuterol Inhaler [Ventolin Hfa Inhaler] 1 - 2 puff INHALATION RT-Q6H PRN 08/17/17 [History] Pravastatin Sodium [Pravachol] 20 mg PO HS 08/17/17 [History] Hydrochlorothiazide [Hydrodiuril] 25 mg PO DAILY 09/11/18 [History] lamoTRIgine [LaMICtal] 100 mg PO HS 09/11/18 [History] Follow up Appointment(s)/Referral(s): Tim Park MD [STAFF PHYSICIAN] - 2 Weeks Lashaun Dobson DO [Primary Care Provider] - 1-2 days Patient Instructions/Handouts: Chest Pain (ED) Discharge Disposition: HOME SELF-CARE
== END 2018-11-27 15:35 | disposition home or self-care (01) ==
LOC: EC 14:18 → 1SOBS 15:43
PROVIDERS: ADMIT Family Medicine; ATTEND Family Medicine
DX: I25.111 Atherosclerotic heart disease of native coronary artery with angina pectoris with documented spasm (principal); I25.110 Atherosclerotic heart disease of native coronary artery with unstable angina pectoris; I10 Essential (primary) hypertension; F17.200 Nicotine dependence, unspecified, uncomplicated; E78.2 Mixed hyperlipidemia; Z95.9 Presence of cardiac and vascular implant and graft, unspecified; E11.51 Type 2 diabetes mellitus with diabetic peripheral angiopathy without gangrene; M79.7 Fibromyalgia; I71.4 Abdominal aortic aneurysm, without rupture; G47.33 Obstructive sleep apnea (adult) (pediatric); Z99.89 Dependence on other enabling machines and devices; F43.10 Post-traumatic stress disorder, unspecified; J44.9 Chronic obstructive pulmonary disease, unspecified; Z90.49 Acquired absence of other specified parts of digestive tract; Z90.5 Acquired absence of kidney; Z98.1 Arthrodesis status; Z79.02 Long term (current) use of antithrombotics/antiplatelets; Z79.51 Long term (current) use of inhaled steroids; Z79.899 Other long term (current) drug therapy; Z82.49 Family history of ischemic heart disease and other diseases of the circulatory system; Z82.0 Family history of epilepsy and other diseases of the nervous system; Z84.0 Family history of diseases of the skin and subcutaneous tissue; Z88.1 Allergy status to other antibiotic agents; Z91.040 Latex allergy status; Z88.5 Allergy status to narcotic agent; Z88.0 Allergy status to penicillin; Z88.8 Allergy status to other drugs, medicaments and biological substances; Z91.048 Other nonmedicinal substance allergy status
CPT/HCPCS: 96366 ×3; 96376; 96365; 99291; 36415; 93005; 93306; 83880; 80061; 80053; 83690; 83735; 84484 ×2; 85025; 85049; 85610; 85730 ×2; 71046; G0378 ×2; J1644 ×2

== ENCOUNTER → 2018-12-17 | Day surgery (SDC) | payer MEDICARE ==
[2018-12-13 14:06] VITALS: BMI 42.1
[~2018-12-17] MED LIST changes: +ADENOSINE 90 MG in SODIUM CHLORIDE 0.9% 60 ML IVP ONE; +ALPRAZolam 0.25 MG TAB PO PRN; +ALPRAZolam 0.5 MG TAB PO PRN; +ASPIRIN 325 MG TAB PO ONE; +ATORVASTATIN 80 MG TAB PO ONE; +HEPARIN SODIUM 1,000 UN/ML (10ML VL) IV ONE; +HEPARIN SODIUM 1,000 UN/ML (10ML VL) ONE; +IV FLUID CONTINUATION 900 ML IV ONE; -LACTATED RINGERS 1,000 ML IV SCH; +LIDOCAINE 1% INJ 10MG/ML (20 ML MDV) ONE; +LIDOCAINE 1% INJ 10MG/ML (20 ML MDV) SQ ONE; +MIDAZOLAM (PF) 2 MG/2 ML VIAL IV ONE; +NITROGLYCERIN SL TABS 0.4 MG TAB SUBLINGUAL PRN; +RX INFO: IV CONTRAST WAS GIVEN 1 EACH MISC MISCELLANE PRN; +SODIUM CHLORIDE 0.9% 1,000 ML IV SCH; +SODIUM CHLORIDE 0.9% 1,000 ML in EMPTY BAG 1 BAG IV ONE; +VERAPAMIL 2.5 MG/ML 2 ML AMP ONE; +VERAPAMIL SYRINGE (5 MG/10 ML) INTRAARTER ONE
[2018-12-17 09:32] VITALS: RESP 18; TEMP 98.2
[2018-12-17] MEDS: MIDAZOLAM (PF) 2 MG/2 ML VIAL IV ONE ×2 (09:58→10:27)
--- NOTE | 2018-12-17 10:47 | P.PCN ---
Date of Procedure: 12/17/18 Operative Findings: CARDIAC CATHETERIZATION PERFORMING PHYSICIAN: Tim Park MD, RPVI PROCEDURE PERFORMED: 1. Selective right and left coronary angiogram 2. Left heart catheterization 3. Fractional flow reserve (FFR) of the RCA INDICATION: This is a pleasant 58-year-old female patient with history of CAD as well as hypertension and dyslipidemia and history of smoking continues to have intermittent episodes of chest discomfort resolved by nitroglycerin and seems to be anginal in nature and exertional related. Because of.heart catheterization was advised. COMPLICATION: None APPROACH: Right radial artery LEVEL OF SEDATION: Moderate sedation 39 minutes PROCEDURE DESCRIPTION: After obtaining an informed consent, the patient was brought to cardiac labeling machine operator. Local anesthesia was performed using lidocaine subcutaneously. The right radial artery was cannulated using Seldinger technique, the guidewire passed easily, following that we advanced a 5-Croatian sheath dilator assembly, the wire and dilator were removed and sheath was flushed. Following that, 2 mg of verapamil along with 5000 unit heparin were given. Selective right and left coronary angiogram using a 6-Croatian JR4 and JL 3.5 catheters. Following that we did left heart catheterization using 6-Croatian pigtail catheter. Subsequently I did perform an FFR of the RCA. The procedure was completed there was no complication. SELECTIVE CORONARY ANGIOGRAM: The right coronary artery: Is a large caliber vessel and dominant vessel. In the midportion he does have intermediate to severe lesion. Angiographically looks about 60%. FFR was performed and came in to be an 0.86. Left main: Is angiographically normal. Bifurcates into left circumflex and left anterior descending artery The left circumflex: Is a large caliber vessel and nondominant vessel. The left circumflex is angiographically normal. It gives rises into the first obtuse marginal branch which work as a ramus intermedius and seems to be angiographically normal and second OM branch which is a moderate caliber vessel seems to be angiographically normal. The left anterior descending artery: It is angiographically normal. The LAD gives rises into 2 diagonal branches both appeared to be angiographically normal. HEMODYNAMICS: The LVEDP was 12 mmHg without significant gradient across aortic valve. FFR OF THE RCA: Anticoagulation was initiated using heparin IV with 10,000 use at the beginning of the procedure and ACT was checked prior to the FFR. After zeroing the Doppler wire and equalizing between the Doppler wire and guiding catheter which was JR4 guiding catheter with an FFR per IV adenosine infusion and FFR came in to be an 0.86 which is nonischemic. CONCLUSION: #1 intermediate to severe disease involving the mid RCA with a lesion appears to be in the range of 60%. FFR was applied and came in to be nonischemic 0.86 POSTPROCEDURE MANAGEMENT: #1 maximize medical treatment #2 follow-up with the patient
[2018-12-17 15:14] VITALS: BP 122/61; PULSE 61
== END ==
LOC: CATHCVL 08:44
PROVIDERS: ATTEND Internal Medicine Interventional Cardiology
DX: I25.110 Atherosclerotic heart disease of native coronary artery with unstable angina pectoris (principal); I10 Essential (primary) hypertension; F17.210 Nicotine dependence, cigarettes, uncomplicated; E78.5 Hyperlipidemia, unspecified; E78.00 Pure hypercholesterolemia, unspecified; I73.9 Peripheral vascular disease, unspecified; Z79.02 Long term (current) use of antithrombotics/antiplatelets; Z79.899 Other long term (current) drug therapy; Z88.1 Allergy status to other antibiotic agents; Z88.5 Allergy status to narcotic agent; Z88.0 Allergy status to penicillin; Z88.8 Allergy status to other drugs, medicaments and biological substances; Z91.09 Other allergy status, other than to drugs and biological substances
CPT/HCPCS: 93571; 93458; 85347; C1887; C1769; C1894; J2001; J1644; J0153; J2250

== ENCOUNTER 2018-12-18 18:56 | Emergency (ER) | payer MEDICARE ==
[2018-12-18 19:08] VITALS: PULSE 82; RESP 18
--- NOTE | 2018-12-18 20:06 | ED ---
General Adult HPI - General Chief complaint: Extremity Injury, Lower Stated complaint: poss blood clot lt leg Time Seen by Provider: 12/18/18 19:05 Source: patient, RN notes reviewed Mode of arrival: ambulatory Limitations: no limitations - History of Present Illness Initial comments: This a 58-year-old female presents emergency Department complaining of posterior left knee pain. Patient states she had a cardiac catheterization yesterday and today she started having pain behind the posterior knee in the posterior distal thigh. Patient states his been no swelling of the distal leg there's been no change in color there's been no warmth. Patient states his been no injury that she knows of. Patient states palpating the distal thigh area does cause her pain. Patient states she is a smoker. Patient states cardiac caths patient did show 60% blocked however there treating her medically currently. Patient states she's had no chest pain palpitations difficulty breathing shortness of breath. - Related Data Home Medications Medication Instructions Recorded Confirmed Clopidogrel [Plavix] 75 mg PO DAILY 05/13/15 12/18/18 Metoprolol Tartrate [Lopressor] 25 mg PO BID 05/13/15 12/18/18 Nitroglycerin Sl Tabs [Nitrostat] 0.4 mg SUBLINGUAL Q5M PRN 12/01/15 12/18/18 Fluticasone Nasal [place] [Flonase 2 spr EA NOSTRIL DAILY PRN 02/23/17 12/18/18 Nasal [place]] Albuterol Inhaler [Ventolin Hfa 1 - 2 puff INHALATION Q6HR PRN 08/17/17 12/18/18 Inhaler] Pravastatin Sodium [Pravachol] 20 mg PO HS 08/17/17 12/18/18 lamoTRIgine [LaMICtal] 100 mg PO HS 09/11/18 12/18/18 Isosorbide Mononitrate [Imdur] 120 mg PO DAILY 12/13/18 12/18/18 Montelukast [Singulair] 10 mg PO DAILY 12/13/18 12/18/18 Allergies Allergy/AdvReac Type Severity Reaction Status Date / Time adhesive tape Allergy Rash/Hives Verified 12/18/18 20:41 codeine Allergy Anaphylaxis Verified 12/18/18 20:41 erythromycin base Allergy Rash/Hives Verified 12/18/18 20:41 hydromorphone HCl Allergy Anaphylaxis Verified 12/18/18 20:41 [From Dilaudid] latex Allergy Swelling, Verified 12/18/18 20:41 itching Penicillins Allergy Rash/Hives Verified 12/18/18 20:41 guaifenesin AdvReac Dizziness Verified 12/18/18 20:41 meclizine AdvReac Nausea & Verified 12/18/18 20:41 Vomiting morphine AdvReac Hallucinati Verified 12/18/18 20:41 ons,vomitin g tramadol AdvReac Nausea & Verified 12/18/18 20:41 Vomiting varenicline AdvReac Hallucinati Verified 12/18/18 20:41 ons Tb skin test Allergy Itching Uncoded 12/17/18 09:01 Review of Systems ROS Statement: Those systems with pertinent positive or pertinent negative responses have been documented in the HPI. ROS Other: All systems not noted in ROS Statement are negative. Past Medical History Past Medical History: Asthma, Coronary Artery Disease (CAD), Cancer, Chest Pain / Angina, COPD, Diabetes Mellitus, Fibromyalgia, Hyperlipidemia, Hypertension, Osteoarthritis (OA) Additional Past Medical History / Comment(s): Diabetes type II diet controlled, AAA -2.5 cm- being monitored, PVD, ulcer age 14, vertigo, donated left kidney , hx cervical cancer History of Any Multi-Drug Resistant Organisms: None Reported Past Surgical History: Appendectomy, Back Surgery, Section, Cholecystectomy, Heart Catheterization, Hysterectomy, Orthopedic Surgery, Tubal Ligation Additional Past Surgical History / Comment(s): Donated left kidney to her sister-L nephrectomy, , bilateral femoral stents which occluded with plaque then cleaned out, cervical fusion with plate and 4 screws, cyst removed from back and back surgery with ravi, R hip bone donor, D&C, Past Anesthesia/Blood Transfusion Reactions: No Reported Reaction Additional Past Anesthesia/Blood Transfusion Reaction / Comment(s): diff coming out after first - "too much anesthesia" Past Psychological History: PTSD Smoking Status: Current every day smoker Past Alcohol Use History: None Reported Past Drug Use History: None Reported - Past Family History Mother Family Medical History: Deep Vein Thrombosis (DVT), Myocardial Infarction (DE), Pulmonary Embolus Additional Family Medical History / Comment(s): scleroderma. [place] x 4 Father Family Medical History: Musculoskeletal Disorder, Neurologic Disorder Additional Family Medical History / Comment(s): Father is . He had parkinson's dx. General Exam - General Exam Comments Initial Comments: GENERAL Patient is well-developed and well-nourished. Patient is in mild distress. EYES Patient's pupils are equal and round. Extraocular motion is intact SKIN Unremarkable NEURO The patient is alert and oriented 3 PYSCH Patient has normal interpersonal interactions. MUSCULOSKELETAL Left posterior knee and distal posterior thigh are tender to palpation there is a small bruise behind the knee in the area of the tenderness. Patient has no swelling to the lower leg no redness. Patient has no warmth the lower leg she's got good pulses and good cap refill Limitations: no limitations Course Vital Signs 12/18/18 19:06 Temperature 98 F Pulse Rate 82 Respiratory 18 Rate Blood Pressure 133/66 O2 Sat by Pulse 95 Oximetry Disposition Clinical Impression: Contusion of leg Disposition: HOME SELF-CARE Instructions (If sedation given, give patient instructions): Contusion in Adults (ED) Is patient prescribed a controlled substance at d/c from ED?: No Referrals: Lashaun Dobson DO [Primary Care Provider] - 1-2 days Time of Disposition: 20:58
--- NOTE | 2018-12-18 20:45 | US ---
EXAMINATION TYPE: US venous doppler duplex LE LT DATE OF EXAM: 12/18/2018 8:31 PM COMPARISON: NONE CLINICAL HISTORY: Posterior leg pain . Posterior leg pain x 1 day. No HX of DVT. Patient takes Plavix . SIDE PERFORMED: Left TECHNIQUE: The lower extremity deep venous system is examined utilizing real time linear array sonog godwin with graded compression, doppler sonography and color-flow sonography. VESSELS IMAGED: External Iliac Vein (EIV) Common Femoral Vein Deep Femoral Vein Greater Saphenous Vein * Femoral Vein Popliteal Vein Small Saphenous Vein * Proximal Calf Veins (* superficial vessels) Left Leg: No evidence of DVT in veins imaged from prox calf veins to EIV. Limited visibility of prox calf veins. IMPRESSION: No evidence of deep venous thrombosis in the left leg.
[2018-12-18 21:20] VITALS: BP 123/70; TEMP 97.9
== END 2018-12-18 21:20 | disposition home or self-care (01) ==
LOC: EC 18:56
DX: S80.02XA Contusion of left knee, initial encounter (principal); I25.119 Atherosclerotic heart disease of native coronary artery with unspecified angina pectoris; J44.9 Chronic obstructive pulmonary disease, unspecified; E11.51 Type 2 diabetes mellitus with diabetic peripheral angiopathy without gangrene; E78.5 Hyperlipidemia, unspecified; I10 Essential (primary) hypertension; M19.90 Unspecified osteoarthritis, unspecified site; F17.200 Nicotine dependence, unspecified, uncomplicated; Z88.0 Allergy status to penicillin; Z88.1 Allergy status to other antibiotic agents; Z88.5 Allergy status to narcotic agent; Z88.8 Allergy status to other drugs, medicaments and biological substances; Z91.040 Latex allergy status; Z91.048 Other nonmedicinal substance allergy status; Z79.02 Long term (current) use of antithrombotics/antiplatelets; Z79.51 Long term (current) use of inhaled steroids; Z79.899 Other long term (current) drug therapy; Z98.1 Arthrodesis status; Z95.818 Presence of other cardiac implants and grafts; X58.XXXA Exposure to other specified factors, initial encounter
CPT/HCPCS: 99283

== ENCOUNTER → 2019-02-04 | Outpatient (CLI) | payer MEDICARE ==
[2019-02-04 16:39] LABS: HCT 45.6 % (34.0-46.0); MCH 31.7 pg (25.0-35.0); MCHC 32.9 g/dL (31.0-37.0); MCV 96.3 fL (80.0-100.0); Mean Platelet Volume 6.2; Platelet Count 258 k/uL (150-450); RBC 4.74 m/uL (3.80-5.40); RDW 12.8 % (11.5-15.5); WBC 9.2 k/uL (3.8-10.6)
[2019-02-04 16:45] LABS: Potassium 4.3 mmol/L (3.5-5.1)
== END | disposition home or self-care (01) ==
LOC: LABWHC1 16:02
PROVIDERS: ATTEND Internal Medicine Interventional Cardiology
DX: Z01.812 Encounter for preprocedural laboratory examination (principal); I25.10 Atherosclerotic heart disease of native coronary artery without angina pectoris
CPT/HCPCS: 36415; 80051; 82565; 84520; 85027

== ENCOUNTER 2019-02-17 08:12 | Day surgery (SDC) | payer MEDICARE ==
[2019-02-12 14:40] VITALS: BMI 42.3
[~2019-02-17 08:12] MED LIST changes: -ADENOSINE 90 MG in SODIUM CHLORIDE 0.9% 60 ML IVP ONE; -ASPIRIN 325 MG TAB PO ONE; +ASPIRIN 325 MG TAB PO STA; -ATORVASTATIN 80 MG TAB PO ONE; +ATORVASTATIN 80 MG TAB PO STA; -HEPARIN SODIUM 1,000 UN/ML (10ML VL) IV ONE; -HEPARIN SODIUM 1,000 UN/ML (10ML VL) ONE; -IV FLUID CONTINUATION 900 ML IV ONE; -LIDOCAINE 1% INJ 10MG/ML (20 ML MDV) ONE; -LIDOCAINE 1% INJ 10MG/ML (20 ML MDV) SQ ONE; -MIDAZOLAM (PF) 2 MG/2 ML VIAL IV ONE; -RX INFO: IV CONTRAST WAS GIVEN 1 EACH MISC MISCELLANE PRN; -SODIUM CHLORIDE 0.9% 1,000 ML IV SCH; -VERAPAMIL 2.5 MG/ML 2 ML AMP ONE; -VERAPAMIL SYRINGE (5 MG/10 ML) INTRAARTER ONE
[2019-02-17 08:58] LABS: Glucose,Whole Blood 104 mg/dL (75-99)
[2019-02-17] MEDS ORDERED: VERAPAMIL 2.5 MG/ML 2 ML AMP ONE (09:45)
[2019-02-17] MEDS ORDERED: LIDOCAINE 1% INJ 10MG/ML (20 ML MDV) ONE (09:45)
[2019-02-17] MEDS ORDERED: MIDAZOLAM 2 MG/2 ML VIAL IVP ONE (10:25)
[2019-02-17] MEDS ORDERED: LIDOCAINE 1% INJ 10MG/ML (20 ML MDV) SQ ONE (10:28)
[2019-02-17] MEDS ORDERED: BIVALIRUDIN BOLUS 250 MG/50 ML IV ONE (10:30)
[2019-02-17] MEDS ORDERED: BIVALIRUDIN 250 MG in SODIUM CHLORIDE 0.9% 50 ML IV ONE (10:31)
[2019-02-17] MEDS ORDERED: fentaNYL (PF) 50 MCG/ML 2 ML AMP ONE (10:38)
[2019-02-17] MEDS ORDERED: NITROGLYCERIN 1000MCG/10ML SYRINGE INTRACORON ONE (10:38)
[2019-02-17] MEDS ORDERED: fentaNYL (PF) 50 MCG/ML 2 ML AMP IVP ONE (10:40)
[2019-02-17] MEDS ORDERED: PANTOPRAZOLE 40 MG TABLET PO PRN (10:49)
[2019-02-17] MEDS ORDERED: CYCLOBENZAPRINE 5 MG TAB PO PRN (10:49)
[2019-02-17] MEDS ORDERED: FLUTICASONE 50MCG/SPRAY NASAL 16GM EA NOSTRIL PRN (10:49)
[2019-02-17] MEDS ORDERED: NITROGLYCERIN SL TABS 0.4 MG TAB SUBLINGUAL PRN ×2 (10:49→10:50)
[2019-02-17] MEDS ORDERED: ATROPINE SULFATE 0.1 MG/ML 10ML SYRINGE IV PRN (10:50)
[2019-02-17] MEDS ORDERED: RX INFO: IV CONTRAST WAS GIVEN 1 EACH MISC MISCELLANE PRN (10:50)
[2019-02-17] MEDS ORDERED: CLOPIDOGREL 75 MG TAB ONE (10:50)
[2019-02-17] MEDS ORDERED: ZOLPIDEM 5 MG TAB PO PRN (10:50)
[2019-02-17] MEDS ORDERED: MAG HYDROX/AL HYDROX/SIMETH 30 ML CUP PO PRN (10:50)
[2019-02-17] MEDS ORDERED: IOPAMIDOL-370 125ML BTL INTRATHECA ONE (10:54)
[2019-02-17] MEDS ORDERED: CLOPIDOGREL 75 MG TAB PO ONE (10:54)
[2019-02-17] MEDS ORDERED: SODIUM CHLORIDE 0.9% 1,000 ML IV SCH (11:00)
--- NOTE | 2019-02-17 11:21 | PTCA ---
PERCUTANEOUSTRANS CORORONARY ANGIOGRAPHY DATE OF SERVICE: February 17, 2019 PERFORMING PHYSICIAN: Tim Park MD, magnet maker. PROCEDURE PERFORMED: 1. Selective right coronary angiogram. 2. Successful stenting of the mid RCA using 4.0 x 23 mm Xience LISA with an excellent angiographic result and reduction of stenosis from 70% to 0%. INDICATION: This is a 58-year-old female with history of peripheral arterial disease and bilateral iliac stenting as well as history of coronary artery disease with intermediate to severe disease involving the RCA, was treated medically. She continues to have chest discomfort. She underwent an FFR and that FFR came into be borderline at 0.85. Because she continues to have chest discomfort, I decided to pursue with intervention on the RCA. APPROACH: Right common femoral artery. COMPLICATION: None. LEVEL OF SEDATION: Moderate with sedation length of 20 minutes. PROCEDURE DESCRIPTION: After obtaining an informed consent, the patient was brought to cardiac laborer tan house. The right common femoral artery was cannulated using micropuncture technique, the micropuncture wire passed easily then I placed a 6-Moroccan sheath. I did after that start anticoagulation with Angiomax. I did engage the RCA using JR4 guide. I did selective right coronary angiogram which revealed intermediate to severe disease involving the RCA. I did wire the RCA using a run-through wire. After that I did balloon angioplasty using 3.0 x 10 mm AngioSculpt balloon which was inflated under 18 atmospheres for 20 seconds. After that, I deployed 4.0 x 23 mm Xience LISA where the stent was positioned under fluoroscopy guidance and deployed under 20 atmospheres for 20 seconds. The following angiogram showed excellent angiographic results and the procedure was completed without any complication. POSTPROCEDURE MANAGEMENT WILL BE: 1. Dual antiplatelet therapy. 2. Risk factors modification. 3. Follow up with the patient. MMODL / IJN: [id number] /
[2019-02-17 11:40] LABS: Glucose,Whole Blood 86 mg/dL (75-99)
[2019-02-17 16:58] LABS: Glucose,Whole Blood 147 mg/dL (75-99)
[2019-02-17] MEDS: METOPROLOL TARTRATE 25 MG TAB PO SCH (20:12)
[2019-02-17 20:44] LABS: Glucose,Whole Blood 129 mg/dL (75-99)
[2019-02-17] MEDS ORDERED: PRAVASTATIN SODIUM 20 MG TAB PO SCH (21:00)
[2019-02-17] MEDS ORDERED: lamoTRIgine 100 MG TAB PO SCH (21:00)
[2019-02-17] MEDS ORDERED: ASPIRIN 81 MG PO SCH (21:00)
[2019-02-18 06:17] LABS: Glucose,Whole Blood 102 mg/dL (75-99)
[2019-02-18 06:21] LABS: Basophils # (A) 0.1 k/uL (0-0.2); Basophils % (A) 1 %; Eosinophils # (A) 0.2 k/uL (0-0.7); Eosinophils % (A) 2 %; HCT 46.7 % (34.0-46.0); HGB 15.1 gm/dL (11.4-16.0); Lymphocytes # (A) 2.2 k/uL (1.0-4.8); Lymphocytes % (A) 28 %; MCH 31.4 pg (25.0-35.0); MCHC 32.3 g/dL (31.0-37.0); MCV 97.2 fL (80.0-100.0); Mean Platelet Volume 6.1; Monocytes # (A) 0.6 k/uL (0-1.0); Monocytes % (A) 8 %; Neutrophils # (A) 4.5 k/uL (1.3-7.7); Neutrophils % (A) 58 %; Platelet Count 223 k/uL (150-450); RBC 4.81 m/uL (3.80-5.40); RDW 12.7 % (11.5-15.5); WBC 7.8 k/uL (3.8-10.6)
[2019-02-18] MEDS ORDERED: CLOPIDOGREL 75 MG TAB PO SCH (09:00)
[2019-02-18] MEDS ORDERED: ISOSORBIDE MONONITRATE ER 60 MG TAB.ER.24H PO SCH (09:00)
[2019-02-18] MEDS ORDERED: MONTELUKAST 10 MG TAB PO SCH (09:00)
[2019-02-18] MEDS ORDERED: CHOLECALCIFEROL 1,000 UNIT TAB PO SCH (09:00)
[2019-02-18] MEDS: METOPROLOL TARTRATE 25 MG TAB PO SCH (09:35)
[2019-02-18 09:54] VITALS: BP 135/75; PULSE 65; RESP 16; TEMP 97.4
--- NOTE | 2019-02-18 10:07 | P.DS ---
Providers Expected date of discharge: 02/18/19 Attending physician: Tim Park Consults: 02/17/19 10:50 Consult Physician Routine Consulting Provider: [facility] Consult Reason/Comments: Post Interventional patient Do you want consulting provider notified?: Already Contacted Primary care physician: Lashaun [place] [facility] Course: This is a very pleasant 58-year-old female patient who was admitted to the hospital yesterday and underwent successful stenting of the right coronary artery with an excellent angiographic results and without any complication from right groin approach. She was seen this morning, 02/18/2019. Overall she is doing well and she is asymptomatic. The right groin is soft and nontender and without any bruises. The patient is going to be discharged home on dual antiplatelet therapy as well as a statin and I will follow-up with the patient next week the office Plan - Discharge Summary Discharge Rx Participant: No New Discharge Prescriptions: Continue Metoprolol Tartrate [Lopressor] 25 mg PO BID Clopidogrel [Plavix] 75 mg PO DAILY Nitroglycerin Sl Tabs [Nitrostat] 0.4 mg SUBLINGUAL Q5M PRN PRN Reason: Chest Pain Fluticasone Nasal [place] [Flonase Nasal [place]] 2 spr EA NOSTRIL DAILY PRN PRN Reason: Allergy Symptoms Albuterol Inhaler [Ventolin Hfa Inhaler] 1 - 2 puff INHALATION Q6HR PRN PRN Reason: Shortness Of Breath Pravastatin Sodium [Pravachol] 20 mg PO HS lamoTRIgine [LaMICtal] 100 mg PO HS Montelukast [Singulair] 10 mg PO DAILY Isosorbide Mononitrate [Imdur] 120 mg PO DAILY Aspirin 81 mg PO HS Cholecalciferol (Vitamin D3) [Vitamin D3] 2,000 unit PO DAILY Cyclobenzaprine HCl 5 mg PO TID PRN PRN Reason: Pain Pantoprazole Sodium [Protonix] 40 mg PO DAILY PRN PRN Reason: gerd Discharge Medication List Clopidogrel [Plavix] 75 mg PO DAILY 05/13/15 [History] Metoprolol Tartrate [Lopressor] 25 mg PO BID 05/13/15 [History] Nitroglycerin Sl Tabs [Nitrostat] 0.4 mg SUBLINGUAL Q5M PRN 12/01/15 [History] Fluticasone Nasal [place] [Flonase Nasal [place]] 2 spr EA NOSTRIL DAILY PRN 02/23/17 [History] Albuterol Inhaler [Ventolin Hfa Inhaler] 1 - 2 puff INHALATION Q6HR PRN 08/17/17 [History] Pravastatin Sodium [Pravachol] 20 mg PO HS 08/17/17 [History] lamoTRIgine [LaMICtal] 100 mg PO HS 09/11/18 [History] Isosorbide Mononitrate [Imdur] 120 mg PO DAILY 12/13/18 [History] Montelukast [Singulair] 10 mg PO DAILY 12/13/18 [History] Aspirin 81 mg PO HS 02/12/19 [History] Cholecalciferol (Vitamin D3) [Vitamin D3] 2,000 unit PO DAILY 02/12/19 [History] Cyclobenzaprine HCl 5 mg PO TID PRN 02/12/19 [History] Pantoprazole Sodium [Protonix] 40 mg PO DAILY PRN 02/12/19 [History] Follow up Appointment(s)/Referral(s): Tim Park MD [STAFF PHYSICIAN] - 02/24/19 10:45 am (Sunday) Patient Instructions/Handouts: *Surgery [facility] - After Heart Catheterization - Customs And Immigration Officer Instructions, Left Heart Catheterization (DC)
[2019-02-18 12:27] LABS: Calcium 9.6 mg/dL (8.4-10.2); Potassium 4.2 mmol/L (3.5-5.1)
== END 2019-02-18 11:06 | disposition home or self-care (01) ==
LOC: CATHCVL 08:12 → 3SCARD 10:47 → CATHCVL 02-18 11:06
PROVIDERS: ATTEND Internal Medicine Interventional Cardiology
DX: I25.119 Atherosclerotic heart disease of native coronary artery with unspecified angina pectoris (principal); I10 Essential (primary) hypertension; E78.5 Hyperlipidemia, unspecified; I73.9 Peripheral vascular disease, unspecified; Z72.0 Tobacco use; Z95.820 Peripheral vascular angioplasty status with implants and grafts; Z79.02 Long term (current) use of antithrombotics/antiplatelets; Z79.82 Long term (current) use of aspirin; Z79.899 Other long term (current) drug therapy; Z88.1 Allergy status to other antibiotic agents; Z88.5 Allergy status to narcotic agent; Z88.0 Allergy status to penicillin; Z88.8 Allergy status to other drugs, medicaments and biological substances; Z91.09 Other allergy status, other than to drugs and biological substances
CPT/HCPCS: 80048; 85025; C9600; C1887; C1769 ×4; C1894 ×2; C1725; C1874; J2250; J2001; J3010; J0583; Q9967

== ENCOUNTER → 2019-08-22 | Outpatient (CLI) | payer OTHER ==
--- NOTE | 2019-08-26 08:52 | MR ---
EXAMINATION TYPE: MR lumbar spine wo con DATE OF EXAM: 08/22/2019 COMPARISON: Prior MR lumbar spine 10/25/2017 HISTORY: Lower back pain and popping feeling near surgery area x 6 months. Surgery in 2014 TECHNIQUE: Multiplanar, multisequence images of the lumbar spine were acquired. L1-L2: Normal disc appearance without desiccation. No herniation, protrusion or disc bulging. No ca nal stenosis is present. Foramina are patent bilaterally. L2-L3: Posterior disc bulge causes mild anterior mass effect on the thecal sac. No significant forami nal encroachment or central stenosis. L3-L4: There is some posterior extension of endplate disc complex causing anterior mass effect on the thecal sac. Hypertrophic changes of the facets causes posterior lateral mass effect on the thecal sa c, there is a trefoil appearance of the thecal sac. Moderate spinal stenosis is again seen. Circumfer ential extension of endplate disc complex encroaches somewhat on the right neural foramen similar to prior exam. L4-L5: Laminectomy change is present. No disc herniation. No foraminal encroachment. L5-S1: Minimal posterior disc bulge is stable. No canal stenosis is present. Foramina are patent bi laterally. Patient shows posterior lumbar fusion change at L4-5 as on prior exam, there is susceptibility artifa ct present, intervertebral spacing cage is present. Multilevel spondylosis is again seen. Loss of dis c height and signal at intervertebral levels with relative sparing at L5-S1, there is multilevel Schm orl's node formation. Lumbar vertebral bodies show preserved height and alignment. No paraspinal mass es are identified. Conus medullaris has a normal appearance. There is ectasia of the abdominal aorta measures approximately 3.3 cm. IMPRESSION: Postop changes, degenerative disc disease and facet arthropathy show similar appearance to prior exam . Infrarenal abdominal aortic ectasia.
== END | disposition home or self-care (01) ==
LOC: RADMRIMAIN 14:54
PROVIDERS: ATTEND Family Medicine
DX: M51.36 Other intervertebral disc degeneration, lumbar region (principal); M47.816 Spondylosis without myelopathy or radiculopathy, lumbar region; Z98.1 Arthrodesis status
CPT/HCPCS: 72148

== ENCOUNTER → 2019-12-27 | Outpatient (CLI) | payer MEDICARE, OTHER ==
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
== END | disposition home or self-care (01) ==
LOC: RADMRIMAIN 08:54
PROVIDERS: ATTEND Family Medicine
DX: R90.82 White matter disease, unspecified (principal); R47.89 Other speech disturbances; R41.82 Altered mental status, unspecified
CPT/HCPCS: 70553; A9585

== ENCOUNTER → 2020-04-15 | Outpatient (CLI) | payer MEDICARE ==
--- NOTE | 2020-04-15 20:44 | SFUN ---
SLEEP CENTER FOLLOW UP NOTE DATE OF SERVICE: 04/15/2020 This patient is a 59-year-old lady who has been followed in Sleep Center for treatment of obstructive sleep apnea-hypopnea syndrome. The patient continues to use her CPAP equipment practically every night. She feels dryness in her mouth. Recently she increased her humidity level from 2 to 3 and feels slightly better with that. [place] Sleepiness Scale today is 7, which is in normal range. I checked her CPAP unit. It is in automatic regimen. Range of the pressure is 8 to 13, average pressure 12.9. Usage is 27/30 nights for more than 4 hours with average usage 6.3 hours per night. Apnea-hypopnea index 4.2. MEDICATIONS: 1. Modafinil 100 mg once a day. 2. Metoprolol 25 mg twice a day. 3. Plavix 75 mg once a day. 4. Lamotrigine 100 mg once a day. 5. Pravastatin once a day. 6. Singulair once a day. 7. Aspirin 81 mg a day once a day. 8. Imdur 120 mg once a day. 9. Bactrim 800 mg twice a day. PHYSICAL EXAMINATION: GENERAL: A pleasant patient in no distress. VITAL SIGNS: BP 106/69, HR 61, RR 15. Height 5 feet 3 inches, weight 232.4, temperature 98.2. Oxygen saturation at room air 96%. HEENT: PERRLA, EOMI. Evaluation of oropharynx showed tongue protrudes midline. Extremely low position of soft palate. Mallampati IV. NECK: Supple. No JVD. Thyroid is not palpable. LUNGS: Clear to percussion and to auscultation. Good air exchange. No wheezing or rhonchi. HEART: S1, S2 regular. No murmurs, gallops or rubs. ABDOMEN: Obese. EXTREMITIES: No clubbing or cyanosis. FOOD AND BEVERAGE LEAD: Awake, alert, and oriented X3. Cranial nerves 2 to 7 intact. There is no fasciculation or atrophy. noted. No focal deficits observed. IMPRESSION: 1. Obstructive sleep apnea-hypopnea syndrome. Patient demonstrated great compliance with treatment, benefitting from treatment. 2. Some dryness in the mouth while using CPAP equipment. 3. Coronary artery disease. 4. Chronic obstructive pulmonary disease. 5. Hypertension. 6. Hyperlipidemia. 7. History of fibromyalgia. 8. Status post left nephrectomy. Patient donated her kidney. 9. Status post . 10.Status post appendectomy. 11.Status post cervical fusion. 12.Status post partial hysterectomy. 13.Status post lumbar fusion, L3, L4. 14.Status post stent insertion to femoral arteries bilaterally. PLAN: 1. I discussed with the patient details about humidification. The patient should put her CPAP unit lower than it staying now. She should increase humidity level. At present it is at level 3. Maximum level is 8. I explained to the patient how to adjust it. The patient also should increase the temperature in the tube to prevent condensation of water in the tube. 2. Patient will continue to use PAP equipment every night for the whole night. 3. Sleep hygiene with regular time in bed for at least 7-1/2 to 8 hours. 4. Precautions related to driving. No driving if feeling sleepiness. 5. I will maintain all necessary prescription for PAP supplies including mask, tube, filters. 6. Watching weight. 7. No driving if feeling sleepiness. 8. Follow-up visit in 6 months or earlier if patient has any problems. Thank you very much for allowing me to participate in the management of your patient. Sincerely, Ryder Meza MD, PhD, FAASM Diplomat of [employer] Cardiopulmonary Technician And Eeg Tech of [facility] [place] MMODL / BRAULION: [id number] /
== END | disposition home or self-care (01) ==

== ENCOUNTER → 2020-05-28 | Outpatient (CLI) | payer MEDICARE ==
--- NOTE | 2020-05-31 11:07 | MM ---
Reason for exam: screening (asymptomatic). Last mammogram was performed 3 years ago. History: Patient is postmenopausal and has history of other cancer at age 27. Physical Findings: A clinical breast exam by your physician is recommended on an annual basis and results should be correlated with mammographic findings. MG 3D Screening Mammo W/Cad Bilateral CC and MLO view(s) were taken. Prior study comparison: June 01, 2017, bilateral MG 3d screening mammo w/cad. April 08, 2016, bilateral MG screening mammo w CAD. There are scattered fibroglandular densities. There are benign appearing round calcifications bilaterally. There is chronic nodularity in the left breast. There is no discrete abnormality. ASSESSMENT: Incomplete: need additional imaging evaluation, BI-RAD 0 RECOMMENDATION: Ultrasound of the left breast. (palpable) [facility] will attempt to contact patient to return for ultrasound.
== END | disposition home or self-care (01) ==
LOC: RADMAMWWP 08:45
PROVIDERS: ATTEND Family Medicine
DX: Z12.31 Encounter for screening mammogram for malignant neoplasm of breast (principal); R92.8 Other abnormal and inconclusive findings on diagnostic imaging of breast
CPT/HCPCS: 77063; 77067

== ENCOUNTER → 2020-06-11 | Outpatient (CLI) | payer MEDICARE ==
--- NOTE | 2020-06-11 14:58 | USB ---
Reason for exam: additional evaluation requested from abnormal screening. History: Patient is postmenopausal and has history of other cancer at age 27. Physical Findings: Nurse did not find any significant physical abnormalities on exam. US Breast Workup Limited LT Technologist: Gabriela Ann Left limited breast ultrasound including focal area of concern, retroareolar and axilla demonstrates no cystic or solid lesion seen. Scanned 12-6 o'clock. These results were verbally communicated with the patient and result sheet given to the patient on 06/11/20. ASSESSMENT: Negative, BI-RAD 1 RECOMMENDATION: Return to routine screening mammogram schedule for both breasts. Manage on a clinical basis with regard to left breast pain and suspicious palpable abnormality.
== END ==
LOC: RADUSWWP 13:50
PROVIDERS: ATTEND Family Medicine
DX: Z78.0 Asymptomatic menopausal state (principal)

== ENCOUNTER → 2020-10-28 | Outpatient (CLI) | payer MEDICARE ==
--- NOTE | 2020-10-28 22:01 | SFUN ---
SLEEP CENTER FOLLOW UP NOTE DATE OF SERVICE: 10/28/2020 60-year-old lady has been followed in the Sleep Center for treatment of obstructive sleep apnea-hypopnea syndrome. Patient continued to use her CPAP equipment every night for the whole night. No snoring with the machine. [place] Sleepiness Scale today 7, which is in normal range. Patient increased episodes of nocturia during sleep. I checked her CPAP unit. Range of the pressure 8-14, average pressure is 13 cm of water. Usage is 30/30 nights and 28/30 nights for more than 4 hours with average usage is 6.9 hours per night. Apnea-hypopnea index increased to 8.2, comparing with the previous visit and this included the central apnea index 4.7 for the last week, although index only 4.0, air filter needs to be changed. MEDICATIONS: Aspirin 81 mg once a day. Plavix 75 mg once a day. Lamotrigine 100 mg twice a day, metoprolol 25 mg once a day, and Singulair 10 mg once a day. Imdur 120 mg once a day, atorvastatin 80 mg once a day. Flexeril 5 mg once a day. PHYSICAL EXAMINATION: GENERAL: Patient in no distress. BP 104/65, HR 70, RR 15. Height 5 feet 2-3/4 inches, weight 225.2 pounds, body mass index 40.2. The patient lost about 12 pounds since last visit, temperature 97.3, oxygen saturation at room air 97% oropharynx. Oropharynx: Extremely low position of soft palate. Mallampati 4. NECK: Supple, no JVD. Thyroid is not palpable. LUNGS: Clear to percussion and to auscultation. Good air exchange. No wheezing or rhonchi. HEART: S1, S2 regular. No murmurs, gallops, or rubs. ABDOMEN: Obese. Soft and nontender. Bowel sounds are present. No organomegaly appreciated. EXTREMITIES: No clubbing or cyanosis. INSPECTOR RADAR AND ELECTRONICS: Awake, alert, and oriented X3. Cranial nerves 2 to 7 intact. There is no fasciculation or atrophy noted. No focal deficits observed. IMPRESSION: 1. Obstructive sleep apnea-hypopnea syndrome. Patient demonstrated great compliance with treatment benefitting from treatment. Apnea-hypopnea index slightly increased for the last month with some central apneas present for the last week. Normal apnea-hypopnea index. 2. Coronary artery disease. 3. Chronic obstructive pulmonary disease. 4. Hypertension. 5. Hyperlipidemia. 6. History of fibromyalgia. 7. Status post left nephrectomy. The patient donated her kidney. 8. Status post . 9. Status post appendectomy. 10.Status post cervical fusion. 11.Status post partial hysterectomy. 12.Status post lumbar fusion, L3, L4. 13.Status post stent insertion to femoral arteries bilaterally. PLAN: 1. Patient will continue to use PAP equipment every night for the whole night. 2. Sleep hygiene with regular time in bed for at least 7-1/2 to 8 hours. 3. Precautions related to driving. No driving if feeling sleepiness. 4. I will maintain all necessary prescription for PAP supplies including mask, tube, filters. 5. Watching weight. 6. Followup visit in 2 months because there is a concern about increasing apnea- hypopnea index for the last months. Ryder Meza MD, PhD, FAASM Diplomat of [employer] Sleep Medicine Board of [employer] Board of Internal Medicine Box Blank Machine Feeder of [facility] [place] MMODL / IJN: [id number] /
== END ==
LOC: SLEEP 16:36
PROVIDERS: ATTEND Internal Medicine
DX: G47.33 Obstructive sleep apnea (adult) (pediatric) (principal); I25.10 Atherosclerotic heart disease of native coronary artery without angina pectoris; J44.9 Chronic obstructive pulmonary disease, unspecified; I10 Essential (primary) hypertension; E78.5 Hyperlipidemia, unspecified; F17.200 Nicotine dependence, unspecified, uncomplicated; Z87.39 Personal history of other diseases of the musculoskeletal system and connective tissue; Z90.5 Acquired absence of kidney; Z90.89 Acquired absence of other organs; Z98.1 Arthrodesis status; Z90.710 Acquired absence of both cervix and uterus; Z95.5 Presence of coronary angioplasty implant and graft; Z87.59 Personal history of other complications of pregnancy, childbirth and the puerperium; Z79.82 Long term (current) use of aspirin; Z79.899 Other long term (current) drug therapy; Z91.048 Other nonmedicinal substance allergy status; Z88.5 Allergy status to narcotic agent; Z88.1 Allergy status to other antibiotic agents; Z91.040 Latex allergy status; Z88.0 Allergy status to penicillin; Z88.6 Allergy status to analgesic agent; Z88.8 Allergy status to other drugs, medicaments and biological substances

== ENCOUNTER → 2020-12-29 | Outpatient (CLI) | payer MEDICARE ==
--- NOTE | 2020-12-29 20:42 | SFUN ---
SLEEP CENTER FOLLOW UP NOTE DATE OF SERVICE: 12/29/2020 This 60-year-old lady has been followed in Sleep Center for treatment of obstructive sleep apnea-hypopnea syndrome. During her previous visit, her apnea-hypopnea index was increased to 8.2. The patient continues to use her CPAP equipment every night. Sleeps well. No snoring. [place] Sleepiness Scale today is 4, which is normal. I checked her CPAP unit. Range of the pressure is 8-14 with average pressure 13.6, usage 30/30 nights, and 28/30 nights for more than 4 hours with average usage 6.2 hours per night. Apnea-hypopnea index reduced to 4.2, which is in normal range. MEDICATIONS: 1. Aspirin 81 mg once a day. 2. Plavix 75 mg once a day. 3. Metoprolol 25 mg twice a day. 4. Imdur 120 mg once a day. 5. Montelukast 10 mg once a day. 6. Atorvastatin 80 mg once a day. 7. Lamotrigine 100-150 mg twice a day. PHYSICAL EXAMINATION: GENERAL: Pleasant patient in no distress. VITAL SIGNS: BP /60, HR 74, RR 15, height 5 feet 2-1/2 inches, weight 226, BMI 40.6, temperature 97.9, oxygen saturation at room air 96%. HEENT: PERRLA, EOMI, evaluation of oropharynx showed tongue protrudes midline. Extremely low position of soft palate; Mallampati IV. NECK: Supple, no JVD. Thyroid is not palpable. LUNGS: Clear to percussion and to auscultation. Good air exchange. No wheezing or rhonchi. HEART: S1, S2 regular. No murmurs, gallops, or rubs. ABDOMEN: Soft and nontender. Bowel sounds are present. No organomegaly appreciated. EXTREMITIES: No clubbing or cyanosis. FARM SERVICE ADVISER: Awake, alert, and oriented X3. Cranial nerves 2 to 7 intact. There is no fasciculation or atrophy. noted. No focal deficits observed. IMPRESSION: 1. Obstructive sleep apnea-hypopnea syndrome. Patient demonstrated great compliance with treatment. Normal aspiration on CPAP. 2. Coronary artery disease. 3. Chronic obstructive pulmonary disease. 4. Hypertension. 5. Hyperlipidemia. 6. History of fibromyalgia. 7. Status post left nephrectomy. Patient donated her kidney. 8. Status post . 9. Status post appendectomy. 10.Status post cervical fusion. 11.Status post partial hysterectomy. 12.Status post lumbar fusion L3-L4. 13.Status post stent insertion to femoral arteries bilaterally. PLAN: 1. Patient will continue to use PAP equipment every night for the whole night. 2. Sleep hygiene with regular time in bed for at least 7-1/2 to 8 hours. 3. Precautions related to driving. No driving if feeling sleepiness. 4. I will maintain all necessary prescription for PAP supplies including mask, tube, filters. 5. Watching weight. 6. Follow-up visit in 6 months or earlier if patient has any problems. Thank you very much for allowing me to participate in the management of your patient. Sincerely, Ryder Meza MD, PhD, FAASM Diplomat of [employer] Sleep Medicine Board of [employer] Board of Internal Medicine Used Car Salesperson of [facility] [place] MMODL / BRAULION: [id number] /
== END ==
LOC: SLEEP 16:36
PROVIDERS: ATTEND Internal Medicine
DX: G47.33 Obstructive sleep apnea (adult) (pediatric) (principal); J44.9 Chronic obstructive pulmonary disease, unspecified; I10 Essential (primary) hypertension; E78.5 Hyperlipidemia, unspecified; I25.10 Atherosclerotic heart disease of native coronary artery without angina pectoris; F17.200 Nicotine dependence, unspecified, uncomplicated; Z87.39 Personal history of other diseases of the musculoskeletal system and connective tissue; Z90.5 Acquired absence of kidney; Z87.59 Personal history of other complications of pregnancy, childbirth and the puerperium; Z90.49 Acquired absence of other specified parts of digestive tract; Z99.89 Dependence on other enabling machines and devices; Z98.1 Arthrodesis status; Z95.5 Presence of coronary angioplasty implant and graft; Z90.711 Acquired absence of uterus with remaining cervical stump; Z79.82 Long term (current) use of aspirin; Z79.02 Long term (current) use of antithrombotics/antiplatelets; Z79.899 Other long term (current) drug therapy; Z91.048 Other nonmedicinal substance allergy status; Z88.5 Allergy status to narcotic agent; Z88.0 Allergy status to penicillin; Z91.040 Latex allergy status; Z88.1 Allergy status to other antibiotic agents; Z88.7 Allergy status to serum and vaccine; Z88.2 Allergy status to sulfonamides

== ENCOUNTER → 2021-06-29 | Outpatient (CLI) | payer MEDICARE ==
--- NOTE | 2021-06-29 17:56 | SFUN ---
SLEEP CENTER FOLLOW UP NOTE DATE OF SERVICE: 06/29/2021 This 61-year-old lady has been followed in Sleep Center for treatment of obstructive sleep apnea-hypopnea syndrome. The patient continues to use her CPAP equipment every night, getting her CPAP supplies on time. [place] Sleepiness Scale today is 10, which is borderline. Patient has some back problems, and that is a factor which is disturbing her sleep. I checked her CPAP unit. Range of the pressure is 8 to 14, average pressure 13.6. Usage is 29/30 nights and 28/30 nights for more than 4 hours, average 6.7 hours per night. Leak is 17 L/minute, which is borderline. Apnea-hypopnea index is 1.5, which is absolutely normal. Occasionally patient has episodes of snoring, according to her family. MEDICATIONS: 1. Metoprolol 25 mg twice a day. 2. Lamotrigine 100 mg twice a day. 3. Aspirin 81 mg once a day. 4. Montelukast 10 mg once a day. 5. Imdur 120 mg once a day. 6. Plavix 75 mg once a day. 7. Lipitor 80 mg once a day. PHYSICAL EXAMINATION: GENERAL: Pleasant patient in no distress. VITAL SIGNS: BP 110/72, HR 74, RR 16, weight 231.4 pounds, temperature 97.0, oxygen saturation at room air 95%. Height 5 feet 2-1/2 inches. The patient's weight increased by about 5 pounds since previous visit. HEENT: PERRLA, EOMI, evaluation of oropharynx showed tongue protrudes midline. Extremely low position of soft palate; Mallampati IV. NECK: Supple, no JVD. Thyroid is not palpable. LUNGS: Clear to percussion and to auscultation. Good air exchange. No wheezing or rhonchi. HEART: S1, S2 regular. No murmurs, gallops, or rubs. ABDOMEN: Soft and nontender. Bowel sounds are present. No organomegaly appreciated. EXTREMITIES: No clubbing or cyanosis. CHAPERONE: Awake, alert, and oriented X3. Cranial nerves 2 to 7 intact. There is no fasciculation or atrophy. noted. No focal deficits observed. IMPRESSION: 1. Obstructive sleep apnea-hypopnea syndrome with practically 100% compliance with treatment, benefitting from treatment. Normal respiration on CPAP. Occasional episodes of snoring, according to the family. 2. History of chronic obstructive pulmonary disease. 3. Coronary artery disease. 4. Hypertension. 5. Hyperlipidemia. 6. Back problems. 7. History of fibromyalgia. 8. Status post left nephrectomy; kidney was donated by the patient. 9. Status post . 10.Status post appendectomy. 11.Status post cervical fusion. 12.Status post partial hysterectomy. 13.Status post lumbar fusion, L3-L4. 14.Status post stent insertion to femoral arteries bilaterally. PLAN: 1. I changed regimen in the machine to the level from 8 to 15 cm of water to prevent snoring. 2. Patient will continue to use PAP equipment every night for the whole night. 3. Sleep hygiene with regular time in bed for at least 7-1/2 to 8 hours. 4. Precautions related to driving. No driving if feeling sleepiness. 5. I will maintain all necessary prescription for PAP supplies including mask, tube, filters. 6. Watching weight. 7. Follow-up visit in 6 months or earlier if patient has any problems. Thank you very much for allowing me to participate in the management of your patient. Sincerely, Ryder Meza MD, PhD, FAASM Diplomat of [employer] Specialties Sleep Medicine Board of [employer] Board of Internal Medicine Reefer Truck Driver of [facility] [place] MMLALAL / BRAULION: [id number] /
== END ==
LOC: SLEEP 16:16
PROVIDERS: ATTEND Internal Medicine
DX: G47.33 Obstructive sleep apnea (adult) (pediatric) (principal); I25.10 Atherosclerotic heart disease of native coronary artery without angina pectoris; I10 Essential (primary) hypertension; E78.5 Hyperlipidemia, unspecified; Z99.89 Dependence on other enabling machines and devices; M53.80 Other specified dorsopathies, site unspecified; Z87.39 Personal history of other diseases of the musculoskeletal system and connective tissue; Z90.5 Acquired absence of kidney; Z52.4 Kidney donor; Z87.59 Personal history of other complications of pregnancy, childbirth and the puerperium; Z90.49 Acquired absence of other specified parts of digestive tract; Z98.1 Arthrodesis status; Z90.711 Acquired absence of uterus with remaining cervical stump; Z95.5 Presence of coronary angioplasty implant and graft; Z79.01 Long term (current) use of anticoagulants; Z79.82 Long term (current) use of aspirin; Z91.048 Other nonmedicinal substance allergy status; Z88.5 Allergy status to narcotic agent; Z88.1 Allergy status to other antibiotic agents; Z91.040 Latex allergy status; Z88.0 Allergy status to penicillin; Z88.7 Allergy status to serum and vaccine; F17.200 Nicotine dependence, unspecified, uncomplicated

== ENCOUNTER → 2021-09-01 | Outpatient (CLI) | payer MEDICARE ==
[2021-09-01 17:10] LABS: Thyroid Peroxidase Antibodies <9.0 U/mL (0.0-33.0)
[2021-09-01 17:15] LABS: African American GFR (CKD) 69.7 (60.0-200.0); Albumin 4.8 g/dL (3.8-4.9); Albumin/Globulin Ratio 1.72 (1.60-3.17); BUN/Creat Ratio 12.16 Ratio (12.00-20.00); Blood Urea Nitrogen 12.4 mg/dL (9.0-27.0); Calcium 9.7 mg/dL (8.7-10.3); Carbon Dioxide 21.4 mmol/L (20.0-27.5); Globulin 2.8 g/dL (1.6-3.3); Non-African American GFR(CKD) 60.2 (60.0-200.0); Prolactin 6.2 ng/mL (2.800-29.200); T4, Free (Free Thyroxine) 1.02 ng/dL (0.800-1.800); Total Bilirubin 0.4 mg/dL (0.30-1.20); Total Protein 7.7 g/dL (6.2-8.2)
[2021-09-02 03:10] LABS: ACTH 6.86 pg/mL (0.00-45.99)
== END | disposition home or self-care (01) ==
LOC: LABWHC1 07:54
PROVIDERS: ATTEND Internal Medicine Endocrinology, Diabetes & Metabolism
DX: E11.9 Type 2 diabetes mellitus without complications (principal); R53.83 Other fatigue
CPT/HCPCS: 36415; 80053; 82024; 82306; 82533; 82607; 84146; 84439; 84443; 84480; 86376

== ENCOUNTER → 2022-01-19 | Outpatient (CLI) | payer MEDICARE ==
--- NOTE | 2022-01-19 14:01 | P.PN ---
Subjective DATE: 01/19/2022 FOLLOW UP VISIT. Patient with obstructive sleep apnea hypopnea syndrome return to sleep center for follow-up visit. Information from previous visit have been reviewed. Patient is using PAP equipment every night for the whole night, getting PAP supplies in time. The patient does not have significant problems with the mask, PAP unit and humidification. [place] sleepiness scale is 6, which is normal. I checked PAP unit. PAP unit pressure 8-15, average 14.4 cm H2O. Usage is 100 % for more then 4 hours, average 6.8 hours per night. Leak is 32 l/m, which is in acceptable range. Apnea Hypopnea Index is increased to 7.4, during previous visit it was 1.5, patient increased your weight and about 6 pounds since previous visit. MEDICATIONS:1. Ozempic 50 mg once a week 2. Metoprolol 25 mg twice a day 3. Lamotrigine 100 mg twice a day 4. Montelucast 10 mg once a day 5. Imdur 120 eet milligrams once a day 6. Plavix 75 mg once a day 7. Lipitor 80 mg once a day During physical exam: GENERAL: A pleasant patient without any distress. VITAL SIGNS: BP 94/60, HR 72, RR 16, weight 237.2, temperature 96.6, oxygen saturation at room air 96 % . HEENT: PERRLA, EOMI.low position of soft palate, Mallapati 4 . NECK: Supple. No JVD. LUNGS: Clear to percussion and to auscultation. Good air exchange. No wheezing or rhonchi. HEART: S1, S2 regular. ABDOMEN: Soft and nontender. Obese EXTREMITIES: No clubbing or cyanosis. INTERACTIVE MEDIA SPECIALIST: Awake, alert, and oriented x3. No focal deficit. Impressions: 1. Obstructive sleep apnea-hypopnea syndrome. Patient demonstrated great compliance with treatment, benefiting from treatment. Apnea-hypopnea index slightly increased comparing with previous visit. 2. Obesity, patient increased weight and about 6 pounds. 3. History of COPD. 4. Coronary artery disease. 5. Hypertension. 6. Hyperlipidemia. 7. History of fibromyalgia. 8. Status post left nephrectomy, kidney was donated by the patient. 9. Back problems. 10. Status post lumbar fusion L3-L4. 11. Status post stent insertion to femoral arteries bilaterally. 12. Status post cervical fusion, appendectomy, partial hysterectomy . Plan: 1. Continue using PAP equipment every night for the whole night. I increased maximal pressure range up to 16 cm of water. 2. To change air filter at least 1-2 times per month. 3. PAP unit should stay lower then position of the head. 4. Advised patient to remove all remaining water from humidifier canister daily and make it dry after each usage. Refill canister with fresh distilled water before each usage. 5. Sleep hygiene with regular time in bed for at least 8 hours. 6. Precautions related to driving. No driving if feel any sleepiness. 7. I will maintain prescription for PAP supplies including mask, tube, filters. 8. Follow up visit in 6 months or earlier if patient has any problems. 9. Watching and losing weight. Thank you very much for allowing me to participate in the management of your patient. Ryder Meza MD, PhD, FAASM. Diplomat of [place] [employer] Sleep Medicine, Sleep Medicine Board by [place] [employer] Internal Medicine Piece Dye Worker of [facility] [place]
== END | disposition home or self-care (01) ==
LOC: SLEEP 13:06
PROVIDERS: ATTEND Internal Medicine
DX: G47.33 Obstructive sleep apnea (adult) (pediatric) (principal); E78.5 Hyperlipidemia, unspecified; I10 Essential (primary) hypertension; I25.10 Atherosclerotic heart disease of native coronary artery without angina pectoris; J44.9 Chronic obstructive pulmonary disease, unspecified; Z90.5 Acquired absence of kidney; E66.9 Obesity, unspecified; Z98.1 Arthrodesis status; Z99.89 Dependence on other enabling machines and devices; Z98.890 Other specified postprocedural states; Z87.39 Personal history of other diseases of the musculoskeletal system and connective tissue; Z88.5 Allergy status to narcotic agent; Z91.048 Other nonmedicinal substance allergy status; Z88.1 Allergy status to other antibiotic agents; Z88.0 Allergy status to penicillin; Z91.040 Latex allergy status; Z88.8 Allergy status to other drugs, medicaments and biological substances
CPT/HCPCS: 99212

== ENCOUNTER → 2022-07-26 | Outpatient (CLI) | payer MEDICARE ==
--- NOTE | 2022-07-26 13:37 | P.PN ---
Subjective DATE: 07/26/2022 FOLLOW UP VISIT. Patient with obstructive sleep apnea hypopnea syndrome return to sleep center for follow-up visit. Information from previous visit have been reviewed. Patient is using PAP equipment every night for the whole night, getting PAP supplies in time. The patient does not have significant problems with the mask, PAP unit and humidification. [place] sleepiness scale is 10. For last 2 months patient feels more sleepy than before during the day. I checked information from PAP unit. PAP unit pressure 8-16, average 15.4 cm H2O. Usage is 100 % for more then 4 hours, average 7.2 hours per night. Leak is 22 l/m, which is in acceptable range. Apnea Hypopnea Index is 8.3, which is slightly increased. MEDICATIONS:1. Metoprolol 25 mg twice a day 2. Lamotrigine 100 mg twice a day 3. Aspirin 81 mg once a day 4. Plavix 75 mg once a day 5. Lipitor 80 mg once a day 6. Cymbalta 7. Imdur During physical exam: GENERAL: A pleasant patient without any distress. VITAL SIGNS: BP 114/60, HR 61, RR 14 , weight 234.4 to, temperature 97.6, oxygen saturation at room air 97 % . HEENT: PERRLA, EOMI.low position of soft palate, Mallapati 4 . NECK: Supple. No JVD. LUNGS: Clear to percussion and to auscultation. Good air exchange. No wheezing or rhonchi. HEART: S1, S2 regular. ABDOMEN: Soft and nontender. Obese EXTREMITIES: No clubbing or cyanosis. RESIDENTIAL SUPERVISOR: Awake, alert, and oriented x3. No focal deficit. Impressions: 1. Obstructive sleep apnea-hypopnea syndrome. Patient demonstrated great compliance with treatment, benefiting from treatment. 2. Obesity, body mass index 41.4. 3. History of COPD. 4. Hypertension. 5. Coronary artery disease. 6. History of fibromyalgia. 7. Status post the left nephrectomy, patient donated her kidney. 8. Back problems. Status post lumbar fusion L3-L4. 9. Status post stent insertion to femoral arteries on both sides. 10. Status post cervical fusion, partial hysterectomy, appendectomy. ]. Plan: 1. Continue using PAP equipment every night for the whole night. I changed pressure to the level 8-17 centimeters of water 2. To change air filter at least 1-2 times per month. 3. PAP unit should stay lower then position of the head. 4. Advised patient to remove all remaining water from humidifier canister daily and make it dry after each usage. Refill canister with fresh distilled water before each usage. 5. Sleep hygiene with regular time in bed for at least 8 hours. 6. Precautions related to driving. No driving if feel any sleepiness. 7. I will maintain prescription for PAP supplies including mask, tube, filters. 8. .Watching and losing weight. 9. Follow up visit in 6 months or earlier if patient has any problems. 10. We may consider multiple sleep latency test. Thank you very much for allowing me to participate in the management of your patient. Ryder Meza MD, PhD, FAASM. Diplomat of [employer] Board of Sleep Medicine, Sleep Medicine Board by [employer] Board of Internal Medicine Flagger of [facility] [place]
== END ==
LOC: SLEEP 13:02
PROVIDERS: ATTEND Internal Medicine
DX: G47.33 Obstructive sleep apnea (adult) (pediatric) (principal); E66.9 Obesity, unspecified; I10 Essential (primary) hypertension; I25.10 Atherosclerotic heart disease of native coronary artery without angina pectoris; J44.9 Chronic obstructive pulmonary disease, unspecified; M79.7 Fibromyalgia; R63.4 Abnormal weight loss; Z68.41 Body mass index [BMI] 40.0-44.9, adult; Z79.899 Other long term (current) drug therapy; Z88.8 Allergy status to other drugs, medicaments and biological substances; Z90.5 Acquired absence of kidney; Z98.1 Arthrodesis status; Z98.890 Other specified postprocedural states; Z99.89 Dependence on other enabling machines and devices; Z91.048 Other nonmedicinal substance allergy status; Z88.5 Allergy status to narcotic agent; Z88.1 Allergy status to other antibiotic agents; Z91.040 Latex allergy status; Z88.0 Allergy status to penicillin; Z88.7 Allergy status to serum and vaccine; F17.200 Nicotine dependence, unspecified, uncomplicated
CPT/HCPCS: 99212

== ENCOUNTER → 2022-08-09 | Outpatient (CLI) | payer MEDICARE ==
--- NOTE | 2022-08-11 10:39 | MR ---
EXAMINATION TYPE: MR lumbar spine wo/w con DATE OF EXAM: 08/09/2022 5:26 PM COMPARISON: 08/22/2019. CLINICAL INDICATION:Female, 62 years old with history of M96.1 POSTLAMINECTOMY SYNDROME, NOT ELSEWHER E CLAS; PHH, Low back pain and weakness in legs TECHNIQUE: Multi planar, multi sequence imaging was performed utilizing: T1-weighted, T2-weighted, a nd turbo inversion recovery imaging of the lumbar spine. IV Contrast: 10 cc Gadavist. None. FINDINGS: Alignment: The lumbar vertebral bodies have preserved heights and alignment. Cord: The conus medullaris and the distal spinal cord appear unremarkable with regards to their signa l intensity and morphology. No abnormal postcontrast enhancement. Bones/Discs: Postsurgical changes at L4-L5. Discectomy changes at L4-L5. Present remainder of the pako ne signal is grossly within normal limits. The scattered disc space loss and Schmorl's nodes througho ut the spine. Bony edema around a Schmorl's node on the inferior L3 endplate suggestive of acute/suba cute Schmorl's node. L4 laminectomy changes. No abnormal postcontrast enhancement. T12-L1: No evidence of significant spinal canal stenosis or neural foraminal stenosis. L1-L2: Disc bulge and facet joint arthropathy without significant spinal canal stenosis and mild bila teral neural foraminal stenosis. L2-L3: Disc bulge and facet joint arthropathy without significant spinal canal stenosis and mild bila teral neural foraminal stenosis. L3-L4: There is disc height loss with disc bulging and facet joint arthropathy resulting in severe sp inal canal and moderate bilateral neural foraminal stenosis. L4-L5: No evidence of significant spinal canal stenosis or neural foraminal stenosis. L5-S1: The disc is rounded posterior morphology without significant spinal canal stenosis. Facet join t arthropathy with mild neural foraminal stenosis. No significant spinal canal or neural foraminal stenosis in the remainder of the visualized. Other findings: None. IMPRESSION: L3-L4 severe spinal canal stenosis secondary to broad-based disc bulge and facet joint arthropathy. T here is moderate neural foraminal stenosis at this level. This appears mildly progressed from 2019 ex am. No abnormal postcontrast enhancement. Postsurgical changes at L4 and L5
== END | disposition home or self-care (01) ==
LOC: RADMRIMAIN 16:17
PROVIDERS: ATTEND Family Medicine
DX: M48.061 Spinal stenosis, lumbar region without neurogenic claudication (principal); M51.36 Other intervertebral disc degeneration, lumbar region; M47.816 Spondylosis without myelopathy or radiculopathy, lumbar region; M96.1 Postlaminectomy syndrome, not elsewhere classified; R25.2 Cramp and spasm; R29.898 Other symptoms and signs involving the musculoskeletal system; Z98.1 Arthrodesis status
CPT/HCPCS: 72158; A9585

== ENCOUNTER 2022-08-26 21:48 | Emergency (ER) | payer MEDICARE ==
[2022-08-26 21:53] VITALS: TEMP 97.8
--- NOTE | 2022-08-27 00:20 | XR ---
EXAM: XR Left Knee, 3 Views CLINICAL HISTORY: ITS.REASON XR Reason: pain TECHNIQUE: Three views of the left knee. COMPARISON: No relevant prior studies available. FINDINGS: Bones/joints: Unremarkable. No fracture or malalignment. Soft tissues: Prepatellar soft tissue edema. IMPRESSION: Prepatellar soft tissue edema. The appearance is most suggestive of prepatellar bursitis.
--- NOTE | 2022-08-27 00:24 | ED ---
General Adult HPI - General Chief complaint: Fall Stated complaint: Fall Time Seen by Provider: 08/26/22 22:00 Source: patient, RN notes reviewed, old records reviewed Mode of arrival: ambulatory Limitations: no limitations - History of Present Illness Initial comments: Patient is a 62-year-old female presents emergency Department with left knee pain. Patient states this began after she fell at home in the kitchen onto her knees. Had some knee swelling as well. Denies any other injuries. Denies hitting her head or loss of consciousness. Patient does take Plavix. Denies any chest pain, shortness of breath, abdominal pain, nausea, vomiting. No hip pain. He is still ambulatory on it. Presents for further evaluation at this time. His no sensory deficits. Pain with extreme flexion. Pain isolated to the anterior aspect of her left patella. - Related Data Home Medications Medication Instructions Recorded Confirmed Clopidogrel [Plavix] 75 mg PO DAILY 05/13/15 02/17/19 Metoprolol Tartrate [Lopressor] 25 mg PO BID 05/13/15 02/17/19 Nitroglycerin Sl Tabs [Nitrostat] 0.4 mg SUBLINGUAL Q5M PRN 12/01/15 02/12/19 Fluticasone Nasal [place] [Flonase 2 spr EA NOSTRIL DAILY PRN 02/23/17 02/17/19 Nasal [place]] Albuterol Inhaler [Ventolin Hfa 1 - 2 puff INHALATION Q6HR PRN 08/17/17 02/12/19 Inhaler] Pravastatin Sodium [Pravachol] 20 mg PO HS 08/17/17 02/17/19 lamoTRIgine [LaMICtal] 100 mg PO HS 09/11/18 02/17/19 Isosorbide Mononitrate [Imdur] 120 mg PO DAILY 12/13/18 02/17/19 Montelukast [Singulair] 10 mg PO DAILY 12/13/18 02/17/19 Aspirin 81 mg PO HS 02/12/19 02/17/19 Cholecalciferol (Vitamin D3) 2,000 unit PO DAILY 02/12/19 02/17/19 [Vitamin D3] Cyclobenzaprine HCl 5 mg PO TID PRN 02/12/19 02/17/19 Pantoprazole Sodium [Protonix] 40 mg PO DAILY PRN 02/12/19 02/12/19 Allergies Allergy/AdvReac Type Severity Reaction Status Date / Time adhesive tape Allergy Rash/Hives Verified 08/26/22 21:53 codeine Allergy Anaphylaxis Verified 08/26/22 21:53 erythromycin base Allergy Rash/Hives Verified 08/26/22 21:53 hydromorphone HCl Allergy Anaphylaxis Verified 08/26/22 21:53 [From Dilaudid] latex Allergy Swelling, Verified 08/26/22 21:53 itching Penicillins Allergy Rash/Hives Verified 08/26/22 21:53 guaifenesin AdvReac Dizziness Verified 08/26/22 21:53 meclizine AdvReac Nausea & Verified 08/26/22 21:53 Vomiting morphine AdvReac Hallucinati Verified 08/26/22 21:53 ons,vomitin g tramadol AdvReac Nausea & Verified 08/26/22 21:53 Vomiting varenicline AdvReac Hallucinati Verified 08/26/22 21:53 ons Tb skin test Allergy Itching,swe Uncoded 08/26/22 21:53 lling Review of Systems ROS Statement: Those systems with pertinent positive or pertinent negative responses have been documented in the HPI. Review of Systems: CONST: Denies fever EYES: Denies blurry vision ENT: Denies nasal congestion C/V: Denies Chest pain RESP: Denies shortness of breath GI: Denies abdominal pain : Denies dysuria SKIN: Denies rash. MSK: Endorses left knee pain NEURO: Denies headache ROS Other: All systems not noted in ROS Statement are negative. Past Medical History Past Medical History: Asthma, Coronary Artery Disease (CAD), Cancer, Chest Pain / Angina, COPD, Diabetes Mellitus, Fibromyalgia, Hyperlipidemia, Hypertension, Osteoarthritis (OA), Sleep Apnea/CPAP/BIPAP, Vascular Disorder Additional Past Medical History / Comment(s): uses cpap,Diabetes type II diet controlled, AAA -2.5 cm- being monitored, PVD, ulcer age 14, vertigo, donated left kidney , hx cervical cancer History of Any Multi-Drug Resistant Organisms: None Reported Past Surgical History: Appendectomy, Back Surgery, Section, Cholecystectomy, Heart Catheterization, Hysterectomy, Orthopedic Surgery, Tubal Ligation Additional Past Surgical History / Comment(s): Donated left kidney to her sister-L nephrectomy, , bilateral femoral stents which occluded with plaque then cleaned out, cervical fusion with plate and 4 screws, cyst removed from back and back surgery with ravi, R hip bone donor, D&C, Past Anesthesia/Blood Transfusion Reactions: No Reported Reaction Additional Past Anesthesia/Blood Transfusion Reaction / Comment(s): diff coming out after first - "too much anesthesia".no hx blood transfusion Past Psychological History: Bipolar, PTSD Smoking Status: Current every day smoker Past Alcohol Use History: None Reported Past Drug Use History: None Reported - Past Family History Mother Family Medical History: Deep Vein Thrombosis (DVT), Myocardial Infarction ([place]), Pulmonary Embolus Additional Family Medical History / Comment(s): scleroderma. [place] x 4 Father Family Medical History: Musculoskeletal Disorder, Neurologic Disorder Additional Family Medical History / Comment(s): Father is . He had parkinson's dx. General Exam - General Exam Comments Initial Comments: General: Appears in no acute distress. HEAD: Normal with no signs of head trauma. EYES: EOMI. ENT: Hearing grossly intact. RESPIRATORY: No respiratory distress. C/V: Regular rate and rhythm. ABD: Abdomen is nondistended. EXT: Tenderness to palpation over the anterior left patella. Some swelling over the site is well with some erythema. No warmth. Able to hold left lower extremity and full extension. Normal range of motion with tenderness on full flexion. No tenderness over the clot or patellar tendons. No joint line tenderness. SKIN: No rashes or lesions observed on exposed skin. NEURO: Alert and oriented. Limitations: no limitations Course Vital Signs 08/26/22 08/27/22 21:51 00:10 Temperature 97.8 F Pulse Rate 71 63 Respiratory 20 18 Rate Blood Pressure 136/86 131/62 O2 Sat by Pulse 96 97 Oximetry Medical Decision Making - Medical Decision Making Was pt. sent in by a medical professional or institution (, PA, EARTH MOVING TECHNICIAN, urgent care, hospital, or fdc...) When possible be specific @ -No Did you speak to anyone other than the patient for history (EMS, parent, family, police, friend...)? What history was obtained from this source @ -No Did you review nursing and triage notes (agree or disagree)? Why? @ -I reviewed and agree with nursing and triage notes Were old charts reviewed (outside hosp., previous admission, EMS record, old EKG, old radiological studies, urgent care reports/EKG's, fdc records)? Report findings @ -No old charts were reviewed Differential Diagnosis (chest pain, altered mental status, abdominal pain women, abdominal pain men, vaginal bleeding, weakness, fever, dyspnea, syncope, headache, dizziness, GI bleed, back pain, seizure, CVA, palpatations, mental health, musculoskeletal)? @ -Differential Musculoskeletal Muscular strain, contusion, ligament sprain, fracture, arthritis, septic arthritis, bursitis, cellulitis, muscle spasm, nerve compression, DVT, arterial occlusion, herpes zoster, electrolyte abnormality, tumor.... This is not meant to be in all inclusive list EKG interpreted by me (3pts min.). @ -None done X-rays interpreted by me (1pt min.). @ -Left knee x-ray reveals swelling over the anterior patella consistent with prepatellar bursitis. CT interpreted by me (1pt min.). @ -None done U/S interpreted by me (1pt. min.). @ -None done What testing was considered but not performed or refused? (CT, X-rays, U/S, labs)? Why? @ -None What meds were considered but not given or refused? Why? @ -Offered analgesic medications which were declined. Did you discuss the management of the patient with other professionals (professionals i.e. , PA, EARTH MOVING TECHNICIAN, lab, RT, psych nurse, bilingual social worker, military lawyer, teacher, signals officer, case worker)? Give summary @ -No Was smoking cessation discussed for >3mins.? @ -No Was critical care preformed (if so, how long)? @ -No Were there social determinants of health that impacted care today? How? (Homelessness, low income, unemployed, alcoholism, drug addiction, transportation, low edu. Level, literacy, decrease access to med. care, snf, rehab)? @ -No Was there de-escalation of care discussed even if they declined (Discuss DNR or withdrawal of care, Hospice)? DNR status @ -No What co-morbidities impacted this encounter? (DM, HTN, Smoking, COPD, CAD, Cancer, CVA, ARF, Chemo, Hep., AIDS, mental health diagnosis, sleep apnea, morbid obesity)? @ -None Was patient admitted / discharged? Hospital course, mention meds given and route, prescriptions, significant lab abnormalities, going to OR and other pertinent info. @ -Based on the patient's presentation and physical exam, concern for left knee injury. X-ray reveals prepatellar bursitis. I did the patient. She'll be discharged home this time. Recommended NSAIDs, as well as icing and elevation. She was in agreement this plan. She'll follow-up with her physician next week if needed. I instructed the patient to follow up with their PCP in the next 1-3 days. I explained that the patient should return to the emergency department if they experience any worsening symptoms. Strict return precautions were discussed with the patient. The patient expressed understanding of these instructions. I answered all questions that the patient had. The patient was discharged home in good condition with their prescriptions and follow up information. Undiagnosed new problem with uncertain prognosis? @ -No Drug Therapy requiring intensive monitoring for toxicity (Heparin, Nitro, Insulin, Cardizem)? @ -No Were any procedures done? @ -No Diagnosis/symptom? @ -Left knee prepatellar bursitis, fall Acute, or Chronic, or Acute on Chronic? @ -Acute Uncomplicated (without systemic symptoms) or Complicated (systemic symptoms)? @ -Uncomplicated Side effects of treatment? @ -No Exacerbation, Progression, or Severe Exacerbation? @ -No Poses a threat to life or bodily function? How? (Chest pain, [place], [place], pneumonia, PE, COPD, DKA, ARF, appy, cholecystitis, CVA, Diverticulitis, Homicidal, Suicidal, threat to staff... and all critical care pts) @ -No Disposition Clinical Impression: Bursitis, Fall Disposition: HOME SELF-CARE Condition: Good Instructions (If sedation given, give patient instructions): Knee Bursitis (ED), Fall Prevention (ED) Is patient prescribed a controlled substance at d/c from ED?: No Referrals: Lashaun Dobson DO [Primary Care Provider] - 1-2 days Time of Disposition: 00:15
[2022-08-27 00:44] VITALS: BP 131/62; PULSE 63; RESP 18
== END 2022-08-27 00:45 | disposition home or self-care (01) ==
LOC: EC 21:48
DX: M70.52 Other bursitis of knee, left knee (principal); E11.51 Type 2 diabetes mellitus with diabetic peripheral angiopathy without gangrene; E78.5 Hyperlipidemia, unspecified; I10 Essential (primary) hypertension; G47.30 Sleep apnea, unspecified; I25.10 Atherosclerotic heart disease of native coronary artery without angina pectoris; J44.9 Chronic obstructive pulmonary disease, unspecified; M19.90 Unspecified osteoarthritis, unspecified site; F31.9 Bipolar disorder, unspecified; F17.200 Nicotine dependence, unspecified, uncomplicated; Z79.82 Long term (current) use of aspirin; Z88.0 Allergy status to penicillin; Z88.1 Allergy status to other antibiotic agents; Z88.5 Allergy status to narcotic agent; Z88.8 Allergy status to other drugs, medicaments and biological substances; Z91.040 Latex allergy status; Z79.02 Long term (current) use of antithrombotics/antiplatelets; Z79.899 Other long term (current) drug therapy; W18.30XA Fall on same level, unspecified, initial encounter; Y92.009 Unspecified place in unspecified non-institutional (private) residence as the place of occurrence of the external cause
CPT/HCPCS: 99284

== ENCOUNTER → 2022-09-12 | Outpatient (CLI) | payer MEDICARE ==
--- NOTE | 2022-09-12 17:14 | MR ---
EXAMINATION TYPE: MR cervical spine wo con DATE OF EXAM: 09/12/2022 COMPARISON: HISTORY: Neck pain and numbness down arms to fingers for 3 years. CONTRAST: Performed utilizing 0 mL intravenous Gadavist gadolinium contrast. TECHNIQUE: Multiplanar multiecho imaging on a 3.0 Porsha magnet is performed through the cervical spin e. FINDINGS: The craniovertebral junction is normal. Vertebral body alignment is normal. There are likely pedicle screws from anterior cervical fusion at C4-5 and C5-6. This causes magnetic susceptibility artifact. This makes evaluation of impingement and cord compression difficult at these levels. Sagittal T1 weighted images do not suggest significant cord contact. Additional pulse sequen curtis do suggest some impression on the anterior thecal sac at these levels. Spinal canal stenosis is n ot apparent. Some canal narrowing however at C5-6 should be considered. Remaining disc heights appear preserved. There is disc desiccation throughout the cervical spine. No signal abnormality within the spinal cord is evident. IMPRESSIONS: 1. Susceptibility artifact at C4-5 and C5-6 causes limitation in the evaluation. Anterior thecal sac compression is likely present predominantly at C5-6 although stenosis is not confirmed.
== END | disposition home or self-care (01) ==
LOC: RADMRIMAIN 06:01
PROVIDERS: ATTEND Neurological Surgery
DX: M47.12 Other spondylosis with myelopathy, cervical region (principal)
CPT/HCPCS: 72141

== ENCOUNTER → 2022-10-05 | Outpatient (CLI) | payer MEDICARE ==
--- NOTE | 2022-10-05 10:40 | XR ---
EXAMINATION TYPE: XR chest 2V DATE OF EXAM: 10/05/2022 10:32 AM COMPARISON: Chest radiographs from 11/26/2018 TECHNIQUE: XR chest 2V Frontal and lateral views of the chest. CLINICAL INDICATION:Female, 62 years old with history of CH XR 2V IN OUT PT WAITING; FINDINGS: Lungs/Pleura: There is flattening of the diaphragm with increased lucency of the lungs. No evidence o f pneumothorax, pleural effusion or focal consolidation. Pulmonary vascularity: Unremarkable. Heart/mediastinum: Cardiomediastinal silhouette is unremarkable. Musculoskeletal: No acute osseous pathology. IMPRESSION: 1. No acute cardiopulmonary disease process. 2. COPD changes.
[2022-10-05 11:42] LABS: Appearance,Urine Clear (Clear); Bilirubin,Urine Negative (Negative); Blood,Urine Negative (Negative); Color,Urine Yellow; Glucose,Urine (UA) Negative (Negative); Ketones,Urine Negative (Negative); Leukocyte Esterase,Urine Negative (Negative); Nitrite,Urine Negative (Negative); PH, Urine 6.5 (5.0-8.0); Protein,Urine Trace (Negative); Specific Gravity,Urine 1.019 (1.001-1.035); Urobilinogen,Urine <2.0 mg/dL (<2.0)
[2022-10-05 11:58] LABS: Partial Thromboplastin Time 23.2 sec (22.0-30.0); Prothrombin Time 10.3 sec (9.0-12.0)
[2022-10-05 16:32] LABS: ALT 40 U/L (8-44); AST 27 U/L (13-35); Albumin 4.5 d/dL (3.8-4.9); Albumin/Globulin Ratio 1.55 Ratio (1.60-3.17); Alkaline Phosphatase 114 U/L (41-126); BUN/Creat Ratio 16.55 Ratio (12.00-20.00); Blood Urea Nitrogen 18.2 mg/dL (9.0-27.0); Calcium 9.8 mg/dL (8.7-10.3); Carbon Dioxide 27.3 mmol/L (21.6-31.8); Chloride 106 mmol/L (96-109); Globulin 2.9 d/dL (1.6-3.3); Glucose 111 mg/dL (70-110); Potassium 4.8 mmol/L (3.5-5.5); Sodium 142 mmol/L (135-145); Total Bilirubin 0.4 mg/dL (0.3-1.2); Total Protein 7.4 d/dL (6.2-8.2)
[2022-10-05 16:35] LABS: Basophils # (A) 0.07 X 10*3/uL (0.00-0.10); Basophils % (A) 0.7 %; Eosinophils # (A) 0.17 X 10*3/uL (0.04-0.35); Eosinophils % (A) 1.8 %; HCT 49.4 % (37.2-46.3); HGB 15.7 d/dL (12.0-15.0); Lymphocytes # (A) 2.64 X 10*3/uL (0.90-5.00); Lymphocytes % (A) 27.9 %; MCH 30.5 pg (27.0-32.0); MCHC 31.8 d/dL (32.0-37.0); MCV 96.1 FL (80.0-97.0); Mean Platelet Volume 9.1 FL (9.5-12.2); Monocytes # (A) 1.02 X 10*3/uL (0.20-1.00); Monocytes % (A) 10.8 %; NRBC Per 100 WBC 0 X 10*3/uL (0.00-0.01); Neutrophils # (A) 5.54 X 10*3/uL (1.80-7.70); Neutrophils % (A) 58.5 %; Platelet Count 295 X 10*3/uL (140-440); RBC 5.14 X 10*6/uL (4.10-5.20); RDW 13.8 % (11.5-14.5); WBC 9.47 X 10*3/uL (4.50-10.00)
== END | disposition home or self-care (01) ==
LOC: LABWHC1 09:56
PROVIDERS: ATTEND Neurological Surgery
DX: M47.812 Spondylosis without myelopathy or radiculopathy, cervical region (principal); M48.062 Spinal stenosis, lumbar region with neurogenic claudication; M51.36 Other intervertebral disc degeneration, lumbar region
CPT/HCPCS: 36415; 71046; 80053; 81003; 83036; 85025; 85610; 85730

== ENCOUNTER → 2022-10-05 | Outpatient (CLI) | payer MEDICARE | END | disposition home or self-care (01) | LOC: LABWHC1 09:53 | PROVIDERS: ATTEND Neurological Surgery | DX: Z53.9 Procedure and treatment not carried out, unspecified reason (principal) ==

== ENCOUNTER 2022-10-30 22:41 | Emergency (ER) | payer MEDICARE ==
[2022-10-30 22:52] VITALS: TEMP 98
--- NOTE | 2022-10-31 00:14 | ED ---
Back Pain HPI - General Chief Complaint: Back Pain/Injury Stated Complaint: Post op complication Time Seen by Provider: 10/30/22 23:39 Source: patient Limitations: no limitations - History of Present Illness Initial Comments: Patient is a 62-year-old female presenting status post laminectomy on 10/30 performed at [facility]. She states that when she moved in a certain position her dressing came undone and the Tegaderm came loose. Patient states that all day today she has had a mild amount of blood seen within the Tegaderm and does not believe this has increased or changed. - Related Data Home Medications Medication Instructions Recorded Confirmed Clopidogrel [Plavix] 75 mg PO DAILY 05/13/15 02/17/19 Metoprolol Tartrate [Lopressor] 25 mg PO BID 05/13/15 02/17/19 Nitroglycerin Sl Tabs [Nitrostat] 0.4 mg SUBLINGUAL Q5M PRN 12/01/15 02/12/19 Fluticasone Nasal [place] [Flonase 2 spr EA NOSTRIL DAILY PRN 02/23/17 02/17/19 Nasal [place]] Albuterol Inhaler [Ventolin Hfa 1 - 2 puff INHALATION Q6HR PRN 08/17/17 02/12/19 Inhaler] Pravastatin Sodium [Pravachol] 20 mg PO HS 08/17/17 02/17/19 lamoTRIgine [LaMICtal] 100 mg PO HS 09/11/18 02/17/19 Isosorbide Mononitrate [Imdur] 120 mg PO DAILY 12/13/18 02/17/19 Montelukast [Singulair] 10 mg PO DAILY 12/13/18 02/17/19 Aspirin 81 mg PO HS 02/12/19 02/17/19 Cholecalciferol (Vitamin D3) 2,000 unit PO DAILY 02/12/19 02/17/19 [Vitamin D3] Cyclobenzaprine HCl 5 mg PO TID PRN 02/12/19 02/17/19 Pantoprazole Sodium [Protonix] 40 mg PO DAILY PRN 02/12/19 02/12/19 Allergies Allergy/AdvReac Type Severity Reaction Status Date / Time adhesive tape Allergy Rash/Hives Verified 08/26/22 21:53 codeine Allergy Anaphylaxis Verified 08/26/22 21:53 erythromycin base Allergy Rash/Hives Verified 08/26/22 21:53 hydromorphone HCl Allergy Anaphylaxis Verified 08/26/22 21:53 [From Dilaudid] latex Allergy Swelling, Verified 08/26/22 21:53 itching Penicillins Allergy Rash/Hives Verified 08/26/22 21:53 guaifenesin AdvReac Dizziness Verified 08/26/22 21:53 meclizine AdvReac Nausea & Verified 08/26/22 21:53 Vomiting morphine AdvReac Hallucinati Verified 08/26/22 21:53 ons,vomitin g tramadol AdvReac Nausea & Verified 08/26/22 21:53 Vomiting varenicline AdvReac Hallucinati Verified 08/26/22 21:53 ons Tb skin test Allergy Itching,swe Uncoded 08/26/22 21:53 lling Review of Systems ROS Statement: Those systems with pertinent positive or pertinent negative responses have been documented in the HPI. ROS Other: All systems not noted in ROS Statement are negative. Past Medical History Past Medical History: Asthma, Coronary Artery Disease (CAD), Cancer, Chest Pain / Angina, COPD, Diabetes Mellitus, Fibromyalgia, Hyperlipidemia, Hypertension, Osteoarthritis (OA), Sleep Apnea/CPAP/BIPAP, Vascular Disorder Additional Past Medical History / Comment(s): uses cpap,Diabetes type II diet controlled, AAA -2.5 cm- being monitored, PVD, ulcer age 14, vertigo, donated left kidney , hx cervical cancer History of Any Multi-Drug Resistant Organisms: None Reported Past Surgical History: Appendectomy, Back Surgery, Section, Cholecystectomy, Heart Catheterization, Hysterectomy, Orthopedic Surgery, Tubal Ligation Additional Past Surgical History / Comment(s): Donated left kidney to her sister-L nephrectomy, , bilateral femoral stents which occluded with plaque then cleaned out, cervical fusion with plate and 4 screws, cyst removed from back and back surgery with ravi, R hip bone donor, D&C, Past Anesthesia/Blood Transfusion Reactions: No Reported Reaction Additional Past Anesthesia/Blood Transfusion Reaction / Comment(s): diff coming out after first - "too much anesthesia".no hx blood transfusion Past Psychological History: Bipolar, PTSD Smoking Status: Current every day smoker Past Alcohol Use History: None Reported Past Drug Use History: None Reported - Past Family History Mother Family Medical History: Deep Vein Thrombosis (DVT), Myocardial Infarction ([place]), Pulmonary Embolus Additional Family Medical History / Comment(s): scleroderma. [place] x 4 Father Family Medical History: Musculoskeletal Disorder, Neurologic Disorder Additional Family Medical History / Comment(s): Father is . He had parkinson's dx. General Exam Limitations: no limitations General appearance: alert, in no apparent distress Head exam: Present: atraumatic, normocephalic, normal inspection Eye exam: Present: normal appearance, EOMI Neck exam: Present: normal inspection, full ROM Respiratory exam: Present: normal lung sounds bilaterally. Absent: respiratory distress, wheezes, rales, rhonchi, stridor Cardiovascular Exam: Present: regular rate, normal rhythm, normal heart sounds. Absent: systolic murmur, diastolic murmur, rubs, gallop, clicks Back exam: Present: other (Incision measuring about 8 cm is noted with no active bleeding, there are several Steri-Strips which show dried blood.) Neurological exam: Present: alert, oriented X3, CN II-XII intact Psychiatric exam: Present: normal affect, normal mood Skin exam: Present: warm, dry, intact, normal color. Absent: rash Course Vital Signs 10/30/22 22:47 Temperature 98 F Pulse Rate 66 Respiratory 16 Rate Blood Pressure 113/72 O2 Sat by Pulse 96 Oximetry Medical Decision Making - Medical Decision Making Was pt. sent in by a medical professional or institution (SANDRA May, MELT HOUSE DRAG OPERATOR, urgent care, hospital, or senior care...) When possible be specific @ -No Did you speak to anyone other than the patient for history (EMS, parent, family, police, friend...)? What history was obtained from this source @ -No Did you review nursing and triage notes (agree or disagree)? Why? @ -I reviewed and agree with nursing and triage notes Were old charts reviewed (outside hosp., previous admission, EMS record, old EKG, old radiological studies, urgent care reports/EKG's, senior care records)? Report findings @ -No old charts were reviewed Differential Diagnosis (chest pain, altered mental status, abdominal pain women, abdominal pain men, vaginal bleeding, weakness, fever, dyspnea, syncope, headache, dizziness, GI bleed, back pain, seizure, CVA, palpatations, mental health, musculoskeletal)? @ -not applicable EKG interpreted by me (3pts min.). @ -As above X-rays interpreted by me (1pt min.). @ -None done CT interpreted by me (1pt min.). @ -None done U/S interpreted by me (1pt. min.). @ -None done What testing was considered but not performed or refused? (CT, X-rays, U/S, labs)? Why? @ -None What meds were considered but not given or refused? Why? @ -None Did you discuss the management of the patient with other professionals (professionals i.e. , PA, MELT HOUSE DRAG OPERATOR, lab, RT, psych nurse, sexual assault social worker, fortune cookie maker, teacher, traffic police officer, housing case manager)? Give summary @ -No Was smoking cessation discussed for >3mins.? @ -No Was critical care preformed (if so, how long)? @ -No Were there social determinants of health that impacted care today? How? (Homelessness, low income, unemployed, alcoholism, drug addiction, transp ortation, low edu. Level, literacy, decrease access to med. care, care home, rehab)? @ -No Was there de-escalation of care discussed even if they declined (Discuss DNR or withdrawal of care, Hospice)? DNR status @ -No What co-morbidities impacted this encounter? (DM, HTN, Smoking, COPD, CAD, Cancer, CVA, ARF, Chemo, Hep., AIDS, mental health diagnosis, sleep apnea, morbid obesity)? @ -None Was patient admitted / discharged? Hospital course, mention meds given and route, prescriptions, significant lab abnormalities, going to OR and other pertinent info. @ -62-year-old female presenting for dressing change. Patient had a laminectomy performed in the morning and 10/30 at [facility]. States that her dressing came undone. On examination there is an 8 cm incision there is dried blood on the Steri-Strips. There is no active bleeding seen. The Tegaderm has come loose. New Steri-Strips are applied and Tegaderm is replaced. Patient is having no active bleeding and feels well following her procedure. She is instructed to follow-up with her surgeon. Follow-up with PCP. Report back to ER with any new or worsening symptoms. Discussed return parameters and answered all questions. Patient conveyed verbal understanding and agreed to the plan. I discussed this case in detail with my attending Dr. York Undiagnosed new problem with uncertain prognosis? @ -No Drug Therapy requiring intensive monitoring for toxicity (Heparin, Nitro, Insulin, Cardizem)? @ -No Were any procedures done? @ -No Diagnosis/symptom? @ -Dressing change Acute, or Chronic, or Acute on Chronic? @ -acute Uncomplicated (without systemic symptoms) or Complicated (systemic symptoms)? @ -Uncomplicated Side effects of treatment? @ -No Exacerbation, Progression, or Severe Exacerbation? @ -No Poses a threat to life or bodily function? How? (Chest pain, [place], [place], pneumonia, PE, COPD, DKA, ARF, appy, cholecystitis, CVA, Diverticulitis, Homicidal, Suicidal, threat to staff... and all critical care pts) @ -No Disposition Clinical Impression: Dressing change Disposition: HOME SELF-CARE Condition: Good Instructions (If sedation given, give patient instructions): Acute Wounds (ED) Additional Instructions: Follow-up with your surgeon. Report back to ER with any new or worsening symptoms. Is patient prescribed a controlled substance at d/c from ED?: No Referrals: Lashaun Dobson DO [Primary Care Provider] - 1-2 days Time of Disposition: 00:14
[2022-10-31 00:37] VITALS: BP 130/70; PULSE 64; RESP 18
== END 2022-10-31 00:37 | disposition home or self-care (01) ==
LOC: EC 22:41
DX: Z48.00 Encounter for change or removal of nonsurgical wound dressing (principal); J44.9 Chronic obstructive pulmonary disease, unspecified; I25.10 Atherosclerotic heart disease of native coronary artery without angina pectoris; I10 Essential (primary) hypertension; M19.90 Unspecified osteoarthritis, unspecified site; E11.9 Type 2 diabetes mellitus without complications; E78.5 Hyperlipidemia, unspecified; F31.9 Bipolar disorder, unspecified; F17.200 Nicotine dependence, unspecified, uncomplicated; Z88.0 Allergy status to penicillin; Z88.1 Allergy status to other antibiotic agents; Z88.5 Allergy status to narcotic agent; Z88.8 Allergy status to other drugs, medicaments and biological substances; Z91.040 Latex allergy status; Z91.048 Other nonmedicinal substance allergy status; Z79.82 Long term (current) use of aspirin; Z79.02 Long term (current) use of antithrombotics/antiplatelets; Z79.899 Other long term (current) drug therapy
CPT/HCPCS: 99283

== ENCOUNTER 2023-03-24 14:41 | Observation (INO) | payer MEDICARE ==
[2023-03-24 16:05] LABS: Appearance,Urine Cloudy (Clear); Bacteria,Urine Rare /hpf; Bilirubin,Urine Negative (Negative); Blood,Urine Small (Negative); Color,Urine Light Yellow; Glucose,Urine (UA) Negative (Negative); Ketones,Urine Negative (Negative); Leukocyte Esterase,Urine Large (Negative); Mucus,Urine Rare /hpf; Nitrite,Urine Negative (Negative); PH, Urine 5.5 (5.0-8.0); Protein,Urine 1+ (Negative); RBC,Urine 27 /hpf (0-5); Specific Gravity,Urine 1.018 (1.001-1.035); Squamous Epithelial Cell,Urine 2 /hpf (0-4); Urobilinogen,Urine <2.0 mg/dL (<2.0); WBC,Urine >182 /hpf (0-5)
[2023-03-24] MEDS ORDERED: SODIUM CHLORIDE 0.9% 1,000 ML IV STA ×2 (16:18)
[2023-03-24] MEDS ORDERED: SODIUM CHLORIDE 0.9% 2,000 ML IV STA (16:20)
--- NOTE | 2023-03-24 16:20 | ED ---
Female Urogenital HPI - General Chief complaint: Urogenital Stated complaint: Kidney infection Time Seen by Provider: 03/24/23 15:21 Source: patient Mode of arrival: ambulatory Limitations: no limitations - History of Present Illness Initial comments: 62-year-old female with a past medical history significant for left nephrectomy presenting to the ED with a chief complaint of flank pain. Patient states for the past week has had pain in her right flank. Additionally, notes has had nausea as well. Over the past 2 days, patient reports that she has developed chills and flank pain has worsened prompting presentation to the ED for further evaluation. Associated urinary frequency and hematuria. Denied dysuria. No vaginal discharge. No changes in bowel habits. No abdominal pain. No chest pain or shortness of breath. Denies fever. No other complaints. - Related Data Home Medications Medication Instructions Recorded Confirmed Clopidogrel [Plavix] 75 mg PO DAILY 05/13/15 03/24/23 Metoprolol Tartrate [Lopressor] 25 mg PO BID 05/13/15 03/24/23 lamoTRIgine [LaMICtal] 100 mg PO BID 09/11/18 03/24/23 Isosorbide Mononitrate [Imdur] 120 mg PO DAILY 12/13/18 03/24/23 Montelukast [Singulair] 10 mg PO DAILY 12/13/18 03/24/23 Aspirin 81 mg PO HS 02/12/19 03/24/23 Atorvastatin [Lipitor] 80 mg PO HS 03/24/23 03/24/23 Azelaic Acid 1 applic TOPICAL DAILY 03/24/23 03/24/23 DULoxetine HCL [Cymbalta] 20 mg PO DAILY 03/24/23 03/24/23 Ergocalciferol [Vitamin D2 (1250 1,250 mcg PO MO 03/24/23 03/24/23 Mcg = 46340 Iu)] Gabapentin 300 mg PO TID 03/24/23 03/24/23 Allergies Allergy/AdvReac Type Severity Reaction Status Date / Time adhesive tape Allergy Rash/Hives Verified 03/24/23 19:34 codeine Allergy Anaphylaxis Verified 03/24/23 19:34 erythromycin base Allergy Rash/Hives Verified 03/24/23 19:34 hydromorphone HCl Allergy Anaphylaxis Verified 03/24/23 19:34 [From Dilaudid] latex Allergy Swelling, Verified 03/24/23 19:34 itching Penicillins Allergy Rash/Hives Verified 03/24/23 19:34 tuberculin, purified protein Allergy Itching, Verified 03/24/23 19:34 deriva Swelling tuberculin,PPD,multi-puncture Allergy Itching, Verified 03/24/23 19:34 Swelling guaifenesin AdvReac Dizziness Verified 03/24/23 19:34 meclizine AdvReac Nausea & Verified 03/24/23 19:34 Vomiting morphine AdvReac Hallucinati Verified 03/24/23 19:34 ons,vomitin g tramadol AdvReac Nausea & Verified 03/24/23 19:34 Vomiting varenicline AdvReac Hallucinati Verified 03/24/23 19:34 ons Tb skin test Allergy Itching, Uncoded 03/24/23 19:34 Swelling Review of Systems ROS Statement: Those systems with pertinent positive or pertinent negative responses have been documented in the HPI. ROS Other: All systems not noted in ROS Statement are negative. Past Medical History Past Medical History: Asthma, Coronary Artery Disease (CAD), Cancer, Chest Pain / Angina, COPD, Diabetes Mellitus, Fibromyalgia, Hyperlipidemia, Hypertension, Osteoarthritis (OA), Sleep Apnea/CPAP/BIPAP, Vascular Disorder Additional Past Medical History / Comment(s): uses cpap,Diabetes type II diet controlled, AAA -2.5 cm- being monitored, PVD, ulcer age 14, vertigo, donated left kidney , hx cervical cancer History of Any Multi-Drug Resistant Organisms: None Reported Past Surgical History: Appendectomy, Back Surgery, Section, Cholecystectomy, Heart Catheterization, Hysterectomy, Orthopedic Surgery, Tubal Ligation Additional Past Surgical History / Comment(s): Donated left kidney to her sist er-L nephrectomy, , bilateral femoral stents which occluded with plaque then cleaned out, cervical fusion with plate and 4 screws, cyst removed from back and back surgery with ravi, R hip bone donor, D&C, Past Anesthesia/Blood Transfusion Reactions: No Reported Reaction Additional Past Anesthesia/Blood Transfusion Reaction / Comment(s): diff coming out after first - "too much anesthesia".no hx blood transfusion Past Psychological History: Bipolar, PTSD Smoking Status: Current every day smoker Past Alcohol Use History: None Reported Past Drug Use History: None Reported - Past Family History Mother Family Medical History: Deep Vein Thrombosis (DVT), Myocardial Infarction ([place]), Pulmonary Embolus Additional Family Medical History / Comment(s): scleroderma. [place] x 4 Father Family Medical History: Musculoskeletal Disorder, Neurologic Disorder Additional Family Medical History / Comment(s): Father is . He had parkinson's dx. General Exam Limitations: no limitations General appearance: alert, in no apparent distress Eye exam: Present: normal appearance Neck exam: Present: normal inspection Respiratory exam: Present: normal lung sounds bilaterally Cardiovascular Exam: Present: regular rate, normal rhythm GI/Abdominal exam: Present: soft (Nontender. No rebound guarding or rigidity.), other (Right CVA tenderness to percussion.) Neurological exam: Present: alert, oriented X3 Skin exam: Present: warm, dry Course Vital Signs 03/24/23 03/24/23 03/24/23 14:45 16:08 17:52 Temperature 98 F 98.0 F Pulse Rate 107 H 67 67 Respiratory 18 16 Rate Blood Pressure 125/71 141/76 O2 Sat by Pulse 99 95 Oximetry 03/24/23 18:28 Temperature 98.2 F Pulse Rate 86 Respiratory 18 Rate Blood Pressure 136/78 O2 Sat by Pulse 97 Oximetry - Reevaluation(s) Reevaluation #1: Patient evaluated. Vital signs show tachycardia however no hypotension. At this time, patient likely has pyelonephritis. [place] body weight 50 kg, adjusted ideal body weight 72 kg. Ordered 2 L fluid bolus. 03/24/23 16:25 Medical Decision Making - Medical Decision Making Was pt. sent in by a medical professional or institution (, PA, [employer], urgent care, hospital, or half-way...) When possible be specific @ -No Did you speak to anyone other than the patient for history (EMS, parent, family, police, friend...)? What history was obtained from this source @ -No Did you review nursing and triage notes (agree or disagree)? Why? @ -I reviewed and agree with nursing and triage notes Were old charts reviewed (outside hosp., previous admission, EMS record, old EKG, old radiological studies, urgent care reports/EKG's, half-way records)? Report findings @ -No old charts were reviewed Differential Diagnosis (chest pain, altered mental status, abdominal pain women, abdominal pain men, vaginal bleeding, weakness, fever, dyspnea, syncope, headache, dizziness, GI bleed, back pain, seizure, CVA, palpatations, mental health, musculoskeletal)? @ -Differential Abdominal Pain Women: Appendicitis, Cholecystitis, diverticulosis, ischemic bowel, pancreatitis, hepatitis, UTI, gastroenteritis, AAA, incarcerated hernia, bowel obstruction, constipation, inflammatory bowel, hepatitis, peptic ulcer disease, splenic i nfarction, perforated viscus, vulvitis, ovarian torsion, PID, kidney stone, placenta abruption, this is not meant to be an all-inclusive list Differential Fever: Pneumonia, viral URI, endocarditis, myocarditis, pericarditis, otitis, sinusitis, peritonsillar Abscess, retropharyngeal Abscess, epiglottitis, peritonitis, appendicitis, Viry cystitis, diverticulitis, hepatitis, colitis, UTI, PID, TOA, pyelonephritis, prostatitis, epididymitis, meningitis, encephalitis, pulmonary embolism, CVA, thyroid storm, pancreatitis, adrenal crisis, cavernous sinus thrombosis, this is not meant to be an all-inclusive list. EKG interpreted by me (3pts min.). @ -As above X-rays interpreted by me (1pt min.). @ -None done CT interpreted by me (1pt min.). @ -CT interpreted by me showing no evidence of stone. U/S interpreted by me (1pt. min.). @ -None done What testing was considered but not performed or refused? (CT, X-rays, U/S, labs)? Why? @ -None What meds were considered but not given or refused? Why? @ -Analgesia was offered to the patient however secondary to multiple ALLERGIES patient declined medication at this time Did you discuss the management of the patient with other professionals (professionals i.e. , PA, [employer], lab, RT, psych nurse, aids social worker, leverman, teacher, security flex officer, assistant case manager)? Give summary @ -Spoke to Dr. Canchola, who accepted admission. With history of penicillin allergy, recommended starting patient on ceftriaxone. Was smoking cessation discussed for >3mins.? @ -No Was critical care preformed (if so, how long)? @ -No Were there social determinants of health that impacted care today? How? (Homelessness, low income, unemployed, alcoholism, drug addiction, transportation, low edu. Level, literacy, decrease access to med. care, senior living, rehab)? @ -No Was there de-escalation of care discussed even if they declined (Discuss DNR or withdrawal of care, Hospice)? DNR status @ -No What co-morbidities impacted this encounter? (DM, HTN, Smoking, COPD, CAD, Cancer, CVA, ARF, Chemo, Hep., AIDS, mental health diagnosis, sleep apnea, morbid obesity)? @ -History of left nephrectomy Was patient admitted / discharged? Hospital course, mention meds given and route, prescriptions, significant lab abnormalities, going to OR and other pertinent info. @ -Admission 62-year-old female with a past medical history significant for left nephrectomy presenting to the ED with a chief complaint of flank pain for the past week. Laboratory studies reviewed. CBC shows no leukocytosis. Chemistry panel largely unremarkable. UA does appear infected with greater than 182 white blood cells, large leukocyte esterase, 27 RBCs, and rare bacteria. CT shows no evidence of stone. History of left nephrectomy and patient's age, at high risk and therefore patient admitted to observation for IV antibiotics. Undiagnosed new problem with uncertain prognosis? @ -No Drug Therapy requiring intensive monitoring for toxicity (Heparin, Nitro, Insulin, Cardizem)? @ -No Were any procedures done? @ -No Diagnosis/symptom? @ -Pyelonephritis Acute, or Chronic, or Acute on Chronic? @ -Acute Uncomplicated (without systemic symptoms) or Complicated (systemic symptoms)? @ -Uncomplicated Side effects of treatment? @ -No Exacerbation, Progression, or Severe Exacerbation? @ -No Poses a threat to life or bodily function? How? (Chest pain, [place], [place], pneumonia, PE, COPD, DKA, ARF, appy, cholecystitis, CVA, Diverticulitis, Homicidal, Suicidal, threat to staff... and all critical care pts) @ -Possibly. Pyelonephritis in high risk patient. - Lab Data Result diagrams: 03/24/23 16:33 03/24/23 16:33 Lab Results 03/24/23 03/24/23 03/24/23 Range/Units 15:25 16:33 16:33 WBC 10.6 (3.8-10.6) k/uL RBC 4.68 (3.80-5.40) m/uL Hgb 14.6 (11.4-16.0) gm/dL Hct 44.6 (34.0-46.0) % MCV 95.4 (80.0-100.0) fL MCH 31.2 (25.0-35.0) pg MCHC 32.7 (31.0-37.0) g/dL RDW 13.5 (11.5-15.5) % Plt Count 244 (150-450) k/uL MPV 6.9 Neutrophils % 62 % Lymphocytes % 25 % Monocytes % 8 % Eosinophils % 3 % Basophils % 1 % Neutrophils # 6.6 (1.3-7.7) k/uL Lymphocytes # 2.7 (1.0-4.8) k/uL Monocytes # 0.8 (0-1.0) k/uL Eosinophils # 0.3 (0-0.7) k/uL Basophils # 0.1 (0-0.2) k/uL Sodium 140 (137-145) mmol/L Potassium 3.9 (3.5-5.1) mmol/L Chloride 103 (98-107) mmol/L Carbon Dioxide 27 (22-30) mmol/L Anion Gap 10 mmol/L BUN 15 (7-17) mg/dL Creatinine 0.99 (0.52-1.04) mg/dL Est GFR (CKD-EPI)AfAm 72 (>60 ml/min/1.73 sqM) Est GFR (CKD-EPI)NonAf 62 (>60 ml/min/1.73 sqM) Glucose 97 (74-99) mg/dL Calcium 9.2 (8.4-10.2) mg/dL Total Bilirubin 0.5 (0.2-1.3) mg/dL AST 31 (14-36) U/L ALT 40 H (4-34) U/L Alkaline Phosphatase 136 H (38-126) U/L Total Protein 6.9 (6.3-8.2) g/dL Albumin 3.9 (3.5-5.0) g/dL Urine Color Light Yellow Urine Appearance Cloudy H (Clear) Urine pH 5.5 (5.0-8.0) Ur Specific [place] 1.018 (1.001-1.035) Urine Protein 1+ H (Negative) Urine Glucose (UA) Negative (Negative) Urine Ketones Negative (Negative) Urine Blood Small H (Negative) Urine Nitrite Negative (Negative) Urine Bilirubin Negative (Negative) Urine Urobilinogen <2.0 (<2.0) mg/dL Ur Leukocyte Esterase Large H (Negative) Urine RBC 27 H (0-5) /hpf Urine WBC >182 H (0-5) /hpf Ur Squamous Epith Cells 2 (0-4) /hpf Urine Bacteria Rare H (None) /hpf Urine Mucus Rare H (None) /hpf - EKG Data EKG Comments: EKG shows a normal sinus rhythm at [address] or T-wave changes. LA 176, QRS 104, QT/QTc 428/430. Disposition Clinical Impression: Pyelonephritis Disposition: ADMITTED IP TO THIS HOSP Condition: Good Referrals: Lashaun Dobson DO [Primary Care Provider] - 1-2 days Time of Disposition: 17:45
[2023-03-24 16:41] LABS: Basophils # (A) 0.1 k/uL (0-0.2); Basophils % (A) 1 %; Eosinophils # (A) 0.3 k/uL (0-0.7); Eosinophils % (A) 3 %; HCT 44.6 % (34.0-46.0); HGB 14.6 gm/dL (11.4-16.0); Lymphocytes # (A) 2.7 k/uL (1.0-4.8); Lymphocytes % (A) 25 %; MCH 31.2 pg (25.0-35.0); MCHC 32.7 g/dL (31.0-37.0); MCV 95.4 fL (80.0-100.0); Mean Platelet Volume 6.9; Monocytes # (A) 0.8 k/uL (0-1.0); Monocytes % (A) 8 %; Neutrophils # (A) 6.6 k/uL (1.3-7.7); Neutrophils % (A) 62 %; Platelet Count 244 k/uL (150-450); RBC 4.68 m/uL (3.80-5.40); RDW 13.5 % (11.5-15.5); WBC 10.6 k/uL (3.8-10.6)
[2023-03-24 16:50] LABS: ALT 40 U/L (4-34); AST 31 U/L (14-36); African American GFR (CKD) 72 (>60 ml/min/1.73 sqM); Albumin 3.9 g/dL (3.5-5.0); Alkaline Phosphatase 136 U/L (38-126); Anion Gap 10 mmol/L; Blood Urea Nitrogen 15 mg/dL (7-17); Calcium 9.2 mg/dL (8.4-10.2); Carbon Dioxide 27 mmol/L (22-30); Chloride 103 mmol/L (98-107); Glucose 97 mg/dL (74-99); Non-African American GFR(CKD) 62 (>60 ml/min/1.73 sqM); Potassium 3.9 mmol/L (3.5-5.1); Sodium 140 mmol/L (137-145); Total Bilirubin 0.5 mg/dL (0.2-1.3); Total Protein 6.9 g/dL (6.3-8.2)
--- NOTE | 2023-03-24 17:03 | CT ---
EXAMINATION TYPE: CT abdomen pelvis wo con DATE OF EXAM: 03/24/2023 COMPARISON: 11/08/2017 HISTORY: 62-year-old female history of left nephrectomy, patient with right flank pain and hematuria CT DLP: 1088.1 mGycm. Automated exposure control for dose reduction was used. TECHNIQUE: Contiguous axial scanning of the abdomen and pelvis without IV contrast. Coronal and sagit tania reconstructions performed. FINDINGS: Heart upper limits of normal in size without pericardial effusion. RCA coronary calcifications are de monstrated. [place]andy scarring redemonstrated at the right base. Background emphysematous change. No pl eural effusion. Liver mildly enlarged and 18.2 cm mild diminished attenuation suggesting mild fatty infiltration. Cho lecystectomy clips. Adrenal glands, spleen, and pancreas show no gross abnormality by noncontrast CT. Patient is status post left nephrectomy. Nephrectomy bed remains clear. No hydronephrosis on the right. Similar mild contour lobulation of the right kidney. Moderate atherosclerotic calcification infrarenal abdominal aorta with fusiform infrarenal abdominal aortic aneurysm at 3.5 cm, increased from 2.6 cm on 11/08/2017. Bilateral common iliac artery stents ar e noted. No dilated small bowel, free fluid, or free air. No mesenteric or retroperitoneal lymphadenopathy. Th ere is mild stool burden. Left-sided colonic diverticulosis, greatest in the sigmoid colon. No zca lonic inflammatory change. Bladder urine distended. Pelvic phleboliths. Right ovary is visualized. Left ovary not clearly identi fied. No abnormal fluid collection in the pelvis or pelvic lymphadenopathy. Incidental retained air w ithin the vaginal cuff of questionable clinical significance.. Bones: Standard post L4-L5 posterior and interbody lumbar fusion. Moderate degenerative disc disease above L2-L3 and L3-L4. There is a left-sided L3 pars interarticularis defect which has developed new since 2018. Sclerosis of the right pars region. Trace grade 1 anterolisthesis here is also developed. Laminectomy change L3 level. Moderate degenerative disc disease visualized lower thoracic spine. IMPRESSION: 1. Mild hepatomegaly at 18.2 cm with mild hepatic steatosis. 2. Status post left nephrectomy. On the right, no nephrolithiasis or hydronephrosis is seen. 3. Infrarenal AAA at 3.5 cm. Measured 2.6 cm back in 2018. Consider referral to outpatient vascular surgery for subsequent surveillance follow-up. 4. Left-sided colonic reticulosis, greatest in the sigmoid colon. No evidence for acute diverticulit is. 5. Status post L4-L5 posterior and interbody fusion. Progressive degenerative disc disease above the fusion with new trace grade 1 anterolisthesis L3-L4. A left-sided L3 pars interarticularis defect is also developed, new since 2018. Sclerosis of the right-sided pars could represent stress reaction.
[2023-03-24] MEDS ORDERED: NALOXONE 0.4 MG/ML 1 ML VIAL IV PRN (21:56)
[2023-03-24] MEDS: METOPROLOL TARTRATE 25 MG TAB PO SCH (23:57)
[2023-03-24] MEDS: GABAPENTIN 300 MG CAP PO SCH (23:57)
[2023-03-24] MEDS: lamoTRIgine 100 MG TAB PO SCH (23:57)
[2023-03-25] MEDS: SODIUM CHLORIDE 0.9% 1,000 ML IV SCH ×2 (04:17→09:03)
[2023-03-25] MEDS: lamoTRIgine 100 MG TAB PO SCH (09:02)
[2023-03-25] MEDS: METOPROLOL TARTRATE 25 MG TAB PO SCH (09:02)
[2023-03-25] MEDS: GABAPENTIN 300 MG CAP PO SCH (09:02)
[2023-03-25] MEDS ORDERED: CLOPIDOGREL 75 MG TAB PO SCH (09:30)
[2023-03-25] MEDS ORDERED: CEFEPIME 2 GM in SODIUM CHLORIDE 0.9% 100 ML IVPB SCH (10:00)
[2023-03-25 11:15] LABS: Basophils # (A) 0.1 k/uL (0-0.2); Basophils % (A) 1 %; Eosinophils # (A) 0.3 k/uL (0-0.7); Eosinophils % (A) 3 %; HCT 45.8 % (34.0-46.0); Lymphocytes # (A) 2.2 k/uL (1.0-4.8); Lymphocytes % (A) 23 %; MCH 31.2 pg (25.0-35.0); MCHC 32.7 g/dL (31.0-37.0); MCV 95.5 fL (80.0-100.0); Mean Platelet Volume 7.3; Monocytes # (A) 0.7 k/uL (0-1.0); Monocytes % (A) 8 %; Neutrophils # (A) 6.1 k/uL (1.3-7.7); Neutrophils % (A) 63 %; Platelet Count 220 k/uL (150-450); RDW 13.7 % (11.5-15.5); WBC 9.6 k/uL (3.8-10.6)
[2023-03-25 11:38] LABS: ALT 37 U/L (4-34); AST 31 U/L (14-36); African American GFR (CKD) >90 (>60 ml/min/1.73 sqM); Albumin 3.8 g/dL (3.5-5.0); Albumin/Globulin Ratio 1.4; Alkaline Phosphatase 118 U/L (38-126); Anion Gap 11 mmol/L; Blood Urea Nitrogen 12 mg/dL (7-17); Calcium 8.9 mg/dL (8.4-10.2); Carbon Dioxide 20 mmol/L (22-30); Chloride 111 mmol/L (98-107); Globulin 2.8 g/dL; Glucose 105 mg/dL (74-99); Non-African American GFR(CKD) 78 (>60 ml/min/1.73 sqM); Sodium 142 mmol/L (137-145); Total Bilirubin 0.4 mg/dL (0.2-1.3); Total Protein 6.6 g/dL (6.3-8.2)
--- NOTE | 2023-03-25 12:29 | P.HPIM ---
History of Present Illness H&P Date: 03/25/23 History of present illness; patient is 62-year-old lady with past medical histor y significant for left nephrectomy presented to the ER because of right flank pain that is going on for the last 1 week. Patient stated she was all right one week back when she started noticing that she was having right-sided flank pain, pain was sharp in character, intermittent, nonradiating. Over the course of last 2 days pain started worsening and she also noticed that she was having nausea and chills. Patient did not check temperature at home. Patient was also complaining of increased frequency of urination and was noticing darkening of her urine. Denies any chest pain or shortness of breath. There was no complain off and altered bowel movements. No complaint of lightheadedness or dizziness. Because of the symptoms, patient came to the ER Initial lab work done in the ER showed WBC 10.6, hemoglobin 14.6, platelet count 244, sodium 140, potassium 3.9, BUN 15, creatinine 0.99, AST 31, AST 40, alk phos 136 UA done showed urine nitrate negative, leukocyte esterase positive, urine WBC 182 CT abdominal and pelvis done showed mild hepatomegaly, status post left nephrectomy. Infrarenal abdominal aortic aneurysm at 3.5 cm. Left-sided colonic reticulosis. Status post L4-L5 posterior interbody fusion Patient admitted to internal medicine service REVIEW OF SYSTEMS: CONSTITUTIONAL: As mentioned in HPI HEENT: No recent visual problems or hearing problems. Denied any sore throat. CARDIOVASCULAR: No chest pain, orthopnea, PND, no palpitations, no syncope. PULMONARY: No shortness of breath, no cough, no hemoptysis. GASTROINTESTINAL: As mentioned in HPI NEUROLOGICAL: No headaches, no weakness, no numbness. HEMATOLOGICAL: Denies any bleeding or petechiae. GENITOURINARY: As mentioned in HPI ENDOCRINE: Denies any polyuria or polydipsia. The rest of the 14-point review of systems is negative. PHYSICAL EXAMINATION: GENERAL: The patient is alert and oriented x3, not in any acute distress. Well developed, well nourished. HEENT: Pupils are round and equally reacting to light. EOMI. No scleral icterus. No conjunctival pallor. Normocephalic, atraumatic. No pharyngeal erythema. No thyromegaly. CARDIOVASCULAR: S1 and S2 present. No murmurs, rubs, or gallops. PULMONARY: Chest is clear to auscultation, no wheezing or crackles. ABDOMEN: Soft, nontender, nondistended, normoactive bowel sounds. No palpable organomegaly. MUSCULOSKELETAL: No joint swelling or deformity. EXTREMITIES: No cyanosis, clubbing, or pedal edema. NEUROLOGICAL: Gross neurological examination did not reveal any focal deficits. SKIN: No rashes. Assessment and plan Acute pyelonephritis Infrarenal abdominal aortic aneurysm at 3.5 cm History of coronary disease with stent in RCA Hypertension Hyperlipidemia Monitor vital signs Monitor CBC Monitor CMP Continue telemetry monitoring Follow-up on Blood cultures Follow-up urine cultures Continue IV fluids continue IV Rocephin Consulted ID Resume home meds Labs and medication were reviewed.. Continue same treatment. Continue with symptomatic treatment. Resume home medication. Monitor labs and vitals. DVT and GI prophylaxis. Further recommendations as per clinical course of the patient Dictation was produced using [employer] dictation software. please excuse any grammatical, word or spelling errors. Past Medical History Past Medical History: Asthma, Coronary Artery Disease (CAD), Cancer, Chest Pain / Angina, COPD, Diabetes Mellitus, Fibromyalgia, Hyperlipidemia, Hypertension, Osteoarthritis (OA), Sleep Apnea/CPAP/BIPAP, Vascular Disorder Additional Past Medical History / Comment(s): uses cpap,Diabetes type II diet controlled, AAA - being monitored, PVD, ulcer age 14, vertigo, donated left kidney , hx cervical cancer History of Any Multi-Drug Resistant Organisms: None Reported Past Surgical History: Appendectomy, Back Surgery, Section, Cholecystectomy, Heart Catheterization, Hysterectomy, Orthopedic Surgery, Tubal Ligation Additional Past Surgical History / Comment(s): Donated left kidney to her sister-L nephrectomy, bilateral femoral stents which occluded with plaque then cleaned out, cervical fusion with plate and 4 screws, cyst removed from back and back surgery with ravi, R hip bone donor, D&C Past Anesthesia/Blood Transfusion Reactions: No Reported Reaction Additional Past Anesthesia/Blood Transfusion Reaction / Comment(s): diff coming out after first - "too much anesthesia".no hx blood transfusion Past Psychological History: Bipolar, PTSD Additional Psychological History / Comment(s): ptsd -not medicated for Smoking Status: Current every day smoker Past Alcohol Use History: None Reported Additional Past Alcohol Use History / Comment(s): Pt started smoking at age 16 (1976). smoking < 1 PPD Past Drug Use History: None Reported Additional Drug Use History / Comment(s): Uses CBD oil prn - Past Family History Mother Family Medical History: Deep Vein Thrombosis (DVT), Myocardial Infarction ([place]), Pulmonary Embolus Additional Family Medical History / Comment(s): scleroderma. [place] x 4 Father Family Medical History: Musculoskeletal Disorder, Neurologic Disorder Additional Family Medical History / Comment(s): Father is . He had parkinson's dx. Medications and Allergies Home Medications Medication Instructions Recorded Confirmed Type Clopidogrel [Plavix] 75 mg PO DAILY 05/13/15 03/24/23 History Metoprolol Tartrate [Lopressor] 25 mg PO BID 05/13/15 03/24/23 History lamoTRIgine [LaMICtal] 100 mg PO BID 09/11/18 03/24/23 History Isosorbide Mononitrate [Imdur] 120 mg PO DAILY 12/13/18 03/24/23 History Montelukast [Singulair] 10 mg PO DAILY 12/13/18 03/24/23 History Aspirin 81 mg PO HS 02/12/19 03/24/23 History Atorvastatin [Lipitor] 80 mg PO HS 03/24/23 03/24/23 History Azelaic Acid 1 applic TOPICAL DAILY 03/24/23 03/24/23 History DULoxetine HCL [Cymbalta] 20 mg PO DAILY 03/24/23 03/24/23 History Ergocalciferol [Vitamin D2 (1250 1,250 mcg PO MO 03/24/23 03/24/23 History Mcg = 44441 Iu)] Gabapentin 300 mg PO TID 03/24/23 03/24/23 History Allergies Allergy/AdvReac Type Severity Reaction Status Date / Time adhesive tape Allergy Rash/Hives Verified 03/24/23 19:34 codeine Allergy Anaphylaxis Verified 03/24/23 19:34 erythromycin base Allergy Rash/Hives Verified 03/24/23 19:34 hydromorphone HCl Allergy Anaphylaxis Verified 03/24/23 19:34 [From Dilaudid] latex Allergy Swelling, Verified 03/24/23 19:34 itching Penicillins Allergy Rash/Hives Verified 03/24/23 19:34 tuberculin, purified protein Allergy Itching, Verified 03/24/23 19:34 deriva Swelling tuberculin,PPD,multi-puncture Allergy Itching, Verified 03/24/23 19:34 Swelling guaifenesin AdvReac Dizziness Verified 03/24/23 19:34 meclizine AdvReac Nausea & Verified 03/24/23 19:34 Vomiting morphine AdvReac Hallucinati Verified 03/24/23 19:34 ons,vomitin g tramadol AdvReac Nausea & Verified 03/24/23 19:34 Vomiting varenicline AdvReac Hallucinati Verified 03/24/23 19:34 ons Tb skin test Allergy Itching, Uncoded 03/24/23 19:34 Swelling Physical Exam Vitals: Vital Signs Temp Pulse Pulse Resp BP BP Pulse Ox 03/25/23 08:00 97.5 F L 62 16 113/69 93 L 03/25/23 04:16 03/25/23 01:45 03/24/23 23:26 98 F 63 17 134/86 95 03/24/23 18:28 98.2 F 86 18 136/78 97 03/24/23 17:52 98.0 F 67 16 141/76 95 03/24/23 16:08 67 125/71 03/24/23 14:45 98 F 107 H 18 99 FiO2 03/25/23 08:00 03/25/23 04:16 21 03/25/23 01:45 21 03/24/23 23:26 03/24/23 18:28 03/24/23 17:52 03/24/23 16:08 03/24/23 14:45 Intake and Output 03/24/23 03/25/23 03/25/23 22:59 06:59 14:59 Intake Total 1090 Balance 1090 Intake: Intake, IV Titration 850 Amount Sodium Chloride 0.9% 1, 800 000 ml @ 100 mls/hr IV . Q10H HUSSEIN Rx#:[id number] cefTRIAXone 1 gm In 50 Sodium Chloride 0.9% 50 ml @ 100 mls/hr IVPB ONCE STA Rx#:[id number] Oral 240 Other: Voiding Method Toilet # Voids 1 Weight 104.326 kg Results CBC & Chem 7: 03/25/23 10:25 03/25/23 10:25 Labs: Abnormal Lab Results - Last 24 Hours (Table) 03/24/23 03/24/23 Range/Units 15:25 16:33 ALT 40 H (4-34) U/L Alkaline Phosphatase 136 H (38-126) U/L Urine Appearance Cloudy H (Clear) Urine Protein 1+ H (Negative) Urine Blood Small H (Negative) Ur Leukocyte Esterase Large H (Negative) Urine RBC 27 H (0-5) /hpf Urine WBC >182 H (0-5) /hpf Urine Bacteria Rare H (None) /hpf Urine Mucus Rare H (None) /hpf Thrombosis Risk Factor Assmnt - Choose All That Apply Each Factor Represents 1 point: Abnormal pulmonary function (COPD), Age 41-60 years, Obesity (BMI >25) Other Risk Factors: Yes Each Risk Factor Represents 3 Points: Family history of DVT/PE Other congenital or acquired thrombophilia - If yes, enter type in comment: No Thrombosis Risk Factor Assessment Total Risk Factor Score: 6 Thrombosis Risk Factor Assessment Level: High Risk
--- NOTE | 2023-03-25 12:32 | P.DS ---
Providers Date of admission: 03/24/23 21:57 Expected date of discharge: 03/25/23 Attending physician: Brady Canchola MD Consults: 03/25/23 09:14 Consult Physician Routine Consulting Provider: Thiago Antoine Consult Reason/Comments: Pyelonephritis Do you want consulting provider notified?: Yes Primary care physician: [facility] Course: Discharge diagnoses; Acute pyelonephritis Infrarenal abdominal aortic aneurysm at 3.5 cm History of coronary disease with stent in RCA Hypertension Hyperlipidemia Hospital course; patient is 62-year-old lady with past medical history significant for left nephrectomy presented to the ER because of right flank pain that is going on for the last 1 week. Patient stated she was all right one week back when she started noticing that she was having right-sided flank pain, pain was sharp in character, intermittent, nonradiating. Over the course of last 2 days pain started worsening and she also noticed that she was having nausea and chills. Patient did not check temperature at home. Patient was also complaining of increased frequency of urination and was noticing darkening of her urine. Denies any chest pain or shortness of breath. There was no complain off and altered bowel movements. No complaint of lightheadedness or dizziness. Because of the symptoms, patient came to the ER Initial lab work done in the ER showed WBC 10.6, hemoglobin 14.6, platelet count 244, sodium 140, potassium 3.9, BUN 15, creatinine 0.99, AST 31, AST 40, alk p hos 136 UA done showed urine nitrate negative, leukocyte esterase positive, urine WBC 182 CT abdominal and pelvis done showed mild hepatomegaly, status post left nephrectomy. Infrarenal abdominal aortic aneurysm at 3.5 cm. Left-sided colonic reticulosis. Status post L4-L5 posterior interbody fusion Patient admitted to internal medicine service Patient was evaluated by ID, patient this time doesn't want to stay in the hospital, states she is much better. Discussed with ID, they recommended discharging patient on oral Ceftin, prescription was given by ID. Patient was cleared for discharge. Patient was given instructions, to come back to ER if she starts spiking fevers or condition worsens. Regarding infrarenal abdominal aortic aneurysm, patient needs to follow-up outpatient with vascular surgery PHYSICAL EXAMINATION: GENERAL: The patient is alert and oriented x3, not in any acute distress. Well developed, well nourished. HEENT: Pupils are round and equally reacting to light. EOMI. No scleral icterus. No conjunctival pallor. Normocephalic, atraumatic. No pharyngeal erythema. No thyromegaly. CARDIOVASCULAR: S1 and S2 present. No murmurs, rubs, or gallops. PULMONARY: Chest is clear to auscultation, no wheezing or crackles. ABDOMEN: Soft, nontender, nondistended, normoactive bowel sounds. No palpable organomegaly. MUSCULOSKELETAL: No joint swelling or deformity. EXTREMITIES: No cyanosis, clubbing, or pedal edema. NEUROLOGICAL: Gross neurological examination did not reveal any focal deficits. SKIN: No rashes. Dictation was produced using Cherry dictation software. please excuse any grammatical, word or spelling errors. Patient Condition at Discharge: Good Plan - Discharge Summary Discharge Rx Participant: No New Discharge Prescriptions: Continue Metoprolol Tartrate [Lopressor] 25 mg PO BID Clopidogrel [Plavix] 75 mg PO DAILY lamoTRIgine [LaMICtal] 100 mg PO BID Montelukast [Singulair] 10 mg PO DAILY Isosorbide Mononitrate [Imdur] 120 mg PO DAILY Aspirin 81 mg PO HS Ergocalciferol [Vitamin D2 (1250 Mcg = 85503 Iu)] 1,250 mcg PO MO DULoxetine HCL [Cymbalta] 20 mg PO DAILY Atorvastatin [Lipitor] 80 mg PO HS Azelaic Acid 1 applic TOPICAL DAILY Gabapentin 300 mg PO TID Discharge Medication List Clopidogrel [Plavix] 75 mg PO DAILY 05/13/15 [History] Metoprolol Tartrate [Lopressor] 25 mg PO BID 05/13/15 [History] lamoTRIgine [LaMICtal] 100 mg PO BID 09/11/18 [History] Isosorbide Mononitrate [Imdur] 120 mg PO DAILY 12/13/18 [History] Montelukast [Singulair] 10 mg PO DAILY 12/13/18 [History] Aspirin 81 mg PO HS 02/12/19 [History] Atorvastatin [Lipitor] 80 mg PO HS 03/24/23 [History] Azelaic Acid 1 applic TOPICAL DAILY 03/24/23 [History] DULoxetine HCL [Cymbalta] 20 mg PO DAILY 03/24/23 [History] Ergocalciferol [Vitamin D2 (1250 Mcg = 56590 Iu)] 1,250 mcg PO MO 03/24/23 [Hist ory] Gabapentin 300 mg PO TID 03/24/23 [History] Follow up Appointment(s)/Referral(s): Lashaun Dobson DO [Primary Care Provider] - 1-2 days Discharge Disposition: HOME SELF-CARE
[2023-03-25 13:21] VITALS: BP 106/67; PULSE 57; RESP 17; TEMP 98.4
--- NOTE | 2023-03-25 17:41 | P.CONS ---
History of Present Illness - Reason for Consult Consult date: 03/25/23 Pyelonephritis Requesting physician: Gerry Ledezma - Chief Complaint Right flank pain x few days - History of Present Illness Patient is a 62-year-old female with a past medical history significant for left nephrectomy as she donated to her sister in 2001 previous history of UTI presenting to the ER yesterday afternoon for evaluation of right flank pain patient apparently was complaining of pain to the right flank and that has been getting worse over the last 2 days before presentation to the hospital describes the pain to be sharp moderate to severe intensity without any relation patient has developed chills and did have an episode of vomiting for the patient present to the hospital but denies having any burning frequency of urine or any hematuria have the same with the patient was evaluated on presentation to the hospital the patient was afebrile and no fever has gone subsequently patient was not hypoxic tachycardic or hypotensive white count of 10.6 creatinine 0.99 did have a positive UA with more than 182 WBC cultures are currently pending patient did have a CT of abdominal pelvis no evidence of any diverticulitis no nephrolithiasis or hydronephrosis on the right side patient was given a dose of Rocephin admitted to hospital infectious disease was consulted for further management of antibiotic therapy I was contacted by the nursing staff before evaluation of this patient the patient wanted to leave today no matter what even if she had to sign out AMA patient mention she has feeling much better as far as her right flank pain is concerned and no further vomiting and would like to go home and did not mention if she was not discharged she will sign out AMA Review of Systems Positive point and negatives has been mentioned in the HPI, complete review of systems was performed and all other systems are negative Past Medical History Past Medical History: Asthma, Coronary Artery Disease (CAD), Cancer, Chest Pain / Angina, COPD, Diabetes Mellitus, Fibromyalgia, Hyperlipidemia, Hypertension, Osteoarthritis (OA), Sleep Apnea/CPAP/BIPAP, Vascular Disorder Additional Past Medical History / Comment(s): uses cpap,Diabetes type II diet controlled, AAA - being monitored, PVD, ulcer age 14, vertigo, donated left kidney , hx cervical cancer History of Any Multi-Drug Resistant Organisms: None Reported Past Surgical History: Appendectomy, Back Surgery, Section, Cholecystectomy, Heart Catheterization, Hysterectomy, Orthopedic Surgery, Tubal Ligation Additional Past Surgical History / Comment(s): Donated left kidney to her sister-L nephrectomy, bilateral femoral stents which occluded with plaque then cleaned out, cervical fusion with plate and 4 screws, cyst removed from back and back surgery with ravi, R hip bone donor, D&C Past Anesthesia/Blood Transfusion Reactions: No Reported Reaction Additional Past Anesthesia/Blood Transfusion Reaction / Comm: diff coming out after first - "too much anesthesia".no hx blood transfusion Past Psychological History: Bipolar, PTSD Additional Psychological History / Comment(s): ptsd -not medicated for Smoking Status: Current every day smoker Past Alcohol Use History: None Reported Additional Past Alcohol Use History / Comment(s): Pt started smoking at age 16 (1976). smoking < 1 PPD Past Drug Use History: None Reported Additional Drug Use History / Comment(s): Uses CBD oil prn - Past Family History Mother Family Medical History: Deep Vein Thrombosis (DVT), Myocardial Infarction (MA), Pulmonary Embolus Additional Family Medical History / Comment(s): scleroderma. MA x 4 Father Family Medical History: Musculoskeletal Disorder, Neurologic Disorder Additional Family Medical History / Comment(s): Father is . He had parkinson's dx. Medications and Allergies Home Medications Medication Instructions Recorded Confirmed Type Clopidogrel [Plavix] 75 mg PO DAILY 05/13/15 03/24/23 History Metoprolol Tartrate [Lopressor] 25 mg PO BID 05/13/15 03/24/23 History lamoTRIgine [LaMICtal] 100 mg PO BID 09/11/18 03/24/23 History Isosorbide Mononitrate [Imdur] 120 mg PO DAILY 12/13/18 03/24/23 History Montelukast [Singulair] 10 mg PO DAILY 12/13/18 03/24/23 History Aspirin 81 mg PO HS 02/12/19 03/24/23 History Atorvastatin [Lipitor] 80 mg PO HS 03/24/23 03/24/23 History Azelaic Acid 1 applic TOPICAL DAILY 03/24/23 03/24/23 History DULoxetine HCL [Cymbalta] 20 mg PO DAILY 03/24/23 03/24/23 History Ergocalciferol [Vitamin D2 (1250 1,250 mcg PO MO 03/24/23 03/24/23 History Mcg = 61977 Iu)] Gabapentin 300 mg PO TID 03/24/23 03/24/23 History cefUROXime axetiL [Ceftin] 500 mg PO BID 10 Days #20 tab 03/25/23 Rx Allergies Allergy/AdvReac Type Severity Reaction Status Date / Time adhesive tape Allergy Rash/Hives Verified 03/24/23 19:34 codeine Allergy Anaphylaxis Verified 03/24/23 19:34 erythromycin base Allergy Rash/Hives Verified 03/24/23 19:34 hydromorphone HCl Allergy Anaphylaxis Verified 03/24/23 19:34 [From Dilaudid] latex Allergy Swelling, Verified 03/24/23 19:34 itching Penicillins Allergy Rash/Hives Verified 03/24/23 19:34 tuberculin, purified protein Allergy Itching, Verified 03/24/23 19:34 deriva Swelling tuberculin,PPD,multi-puncture Allergy Itching, Verified 03/24/23 19:34 Swelling guaifenesin AdvReac Dizziness Verified 03/24/23 19:34 meclizine AdvReac Nausea & Verified 03/24/23 19:34 Vomiting morphine AdvReac Hallucinati Verified 03/24/23 19:34 ons,vomitin g tramadol AdvReac Nausea & Verified 03/24/23 19:34 Vomiting varenicline AdvReac Hallucinati Verified 03/24/23 19:34 ons Tb skin test Allergy Itching, Uncoded 03/24/23 19:34 Swelling Physical Exam Vitals: Vital Signs Temp Pulse Pulse Resp BP BP Pulse Ox 03/25/23 08:00 97.5 F L 62 16 113/69 93 L 03/25/23 04:16 03/25/23 01:45 03/24/23 23:26 98 F 63 17 134/86 95 03/24/23 18:28 98.2 F 86 18 136/78 97 03/24/23 17:52 98.0 F 67 16 141/76 95 03/24/23 16:08 67 125/71 03/24/23 14:45 98 F 107 H 18 99 FiO2 03/25/23 08:00 03/25/23 04:16 21 03/25/23 01:45 21 03/24/23 23:26 03/24/23 18:28 03/24/23 17:52 03/24/23 16:08 03/24/23 14:45 Intake and Output 03/24/23 03/25/23 03/25/23 22:59 06:59 14:59 Intake Total 1090 Balance 1090 Intake: Intake, IV Titration 850 Amount Sodium Chloride 0.9% 1, 800 000 ml @ 100 mls/hr IV . Q10H [facility] Rx#:[id number] cefTRIAXone 1 gm In 50 Sodium Chloride 0.9% 50 ml @ 100 mls/hr IVPB ONCE STA Rx#:[id number] Oral 240 Other: Voiding Method Toilet Toilet # Voids 1 Weight 104.326 kg GENERAL DESCRIPTION: Middle-aged female in bed, no distress. No tachypnea or accessory muscle of respiration use. HEENT: Shows Pallor , no scleral icterus. Oral mucous membrane is dry. No pharyngeal erythema or thrush NECK: Trachea central, no thyromegaly. LUNGS: Unlabored breathing. Decreased breath sound at the base HEART: S1, S2, regular rate and rhythm. No loud murmur ABDOMEN: Soft, mild tenderness EXTREMITIES: No edema of feet. SKIN: No rash, no masses palpable. NEUROLOGICAL: The patient is awake, alert, oriented x3, mood and affect normal. Results CBC & Chem 7: 03/25/23 10:25 03/25/23 10:25 Labs: Abnormal Lab Results - Last 24 Hours (Table) 03/24/23 03/24/23 Range/Units 15:25 16:33 ALT 40 H (4-34) U/L Alkaline Phosphatase 136 H (38-126) U/L Urine Appearance Cloudy H (Clear) Urine Protein 1+ H (Negative) Urine Blood Small H (Negative) Ur Leukocyte Esterase Large H (Negative) Urine RBC 27 H (0-5) /hpf Urine WBC >182 H (0-5) /hpf Urine Bacteria Rare H (None) /hpf Urine Mucus Rare H (None) /hpf Assessment and Plan (1) Pyelonephritis Status: Acute Code(s): N12 - TUBULO-INTERSTITIAL NEPHRITIS, NOT SPCF ACUTE OR CHRONIC SNOMED Code(s): 39493739 Plan: 1patient presents to hospital with right flank pain nausea and vomiting that have significantly positive UA likely concerning for pyelonephritis CT did not show any evidence of hydronephrosis or nephrolithiasis, more likely from enteric gram-negative pathogen in this patient did have some improvement with the Rocephin and is threatening to leave AMA did not want to wait for the culture 2-we will give a dose of Rocephin 2 g x 1 now afterwards prescription for oral Ceftin 500 mg twice a day for 10 days has been left with the nursing staff and case has been discussed with admitting physician who will make the final determination regarding her discharge Thank you for this consultation Time with Patient: Greater than 30
[2023-03-25] MEDS ORDERED: ATORVASTATIN 80 MG TAB PO SCH (21:00)
[2023-03-25] MEDS ORDERED: ASPIRIN 81 MG PO SCH (21:00)
[2023-03-26] MEDS ORDERED: DULoxetine HCL 20 MG CAPSULE.DR PO SCH (09:00)
[2023-03-26] MEDS ORDERED: MONTELUKAST 10 MG TAB PO SCH (09:00)
== END 2023-03-25 13:34 | disposition home or self-care (01) ==
LOC: EC 14:41 → INTOOBSV 21:57 → 5NMEDONC 21:57 → UNDODISIN 03-25 13:54 → UNDODISOB 03-25 13:54
PROVIDERS: ADMIT Internal Medicine; ATTEND Internal Medicine
DX: N10 Acute pyelonephritis (principal); I71.43 Infrarenal abdominal aortic aneurysm, without rupture; I25.10 Atherosclerotic heart disease of native coronary artery without angina pectoris; I10 Essential (primary) hypertension; E78.5 Hyperlipidemia, unspecified; R31.9 Hematuria, unspecified; F17.210 Nicotine dependence, cigarettes, uncomplicated; Z79.02 Long term (current) use of antithrombotics/antiplatelets; Z79.82 Long term (current) use of aspirin; Z79.899 Other long term (current) drug therapy; Z88.1 Allergy status to other antibiotic agents; Z91.040 Latex allergy status; Z88.5 Allergy status to narcotic agent; Z88.0 Allergy status to penicillin; Z88.7 Allergy status to serum and vaccine; Z88.8 Allergy status to other drugs, medicaments and biological substances; Z91.048 Other nonmedicinal substance allergy status; Z95.5 Presence of coronary angioplasty implant and graft; Z90.5 Acquired absence of kidney
CPT/HCPCS: 96361 ×2; 96365; 96366; 99284; 36415; 94660; 93005; 80053 ×2; 85025 ×2; 81001; 87040; 87086; 74176; G0378 ×2; J0696 ×2; 96360; 99285

== ENCOUNTER → 2023-04-19 | Outpatient (CLI) | payer MEDICARE ==
--- NOTE | 2023-04-19 14:04 | P.PN ---
Subjective DATE: 04/19/2023 FOLLOW UP VISIT. Patient with obstructive sleep apnea hypopnea syndrome return to sleep center for follow-up visit. Information from previous visit have been reviewed. Patient is using PAP equipment every night for the whole night, getting PAP supplies in time. The patient does not have significant problems with the mask, PAP unit and humidification. [place] sleepiness scale is 9, but patient has significant episodes of sleepiness during the day, including while driving the car and she concerned about that. I checked information from PAP unit. PAP unit pressure 8-17, average 15.9 cm H2O, during previous visit I increased pressure, because apnea-hypopnea index was increased 8.3. Usage is 100 % for more then 4 hours, average 6.9 hours per night. Leak is increased to 37 l/m. Apnea Hypopnea Index is 6.8, which include central apnea hypopnea index 2.5. MEDICATIONS:1. Metoprolol 25 mg twice a day 2. Lamotrigine 100 mg twice a day 3. Plavix 4. And Lipitor 80 mg once a day 5. Aspirin 81 mg once a day 6. Cymbalta 7. Imdoor 8. Gabapentin 300 mg 3 times a day During physical exam: GENERAL: A pleasant patient without any distress. VITAL SIGNS: BP 117/61, HR 65, RR 12 , weight 231.6, temperature 97.7, oxygen saturation at room air 96 % . HEENT: PERRLA, EOMI.low position of soft palate, Mallapati 4 . NECK: Supple. No JVD. LUNGS: Clear to percussion and to auscultation. Good air exchange. No wheezing or rhonchi. HEART: S1, S2 regular. ABDOMEN: Soft and nontender. Obese EXTREMITIES: No clubbing or cyanosis. SPIN INSTRUCTOR: Awake, alert, and oriented x3. No focal deficit. Impressions: 1. Obstructive sleep apnea-hypopnea syndrome. Patient demonstrated great compliance with treatment, benefiting from treatment. 2. Obesity, BMI 40.9. 3. Sleepiness during the day, while using CPAP equipment every night. Differential diagnosis include additional diagnosis of narcolepsy type I and idiopathic hypersomnia. 4. hypertension. 5. Coronary artery disease. 6. History of COPD 7. History of fibromyalgia. 8. Status post left nephrectomy, patient donated her kidney. 9. Back problems, status post lumbar fusion and the level LIII-L4. 10. Status post stent insertion to femoral arteries on both sides. 11. Status post cervical fusion. 12..Status post partial hysterectomy Plan: 1. Continue using PAP equipment every night for the whole night. 2. multiple sleep latency test for objective evaluation of symptoms of excessive daytime sleepiness.On the previous night patient will be on CPAP, if necessary will be switched to BiPAP ST mode because of present some central apneas. 3. PAP unit should stay lower then position of the head. 4. Advised patient to remove all remaining water from humidifier canister daily and make it dry after each usage. Refill canister with fresh distilled water before each usage. 5. Sleep hygiene with regular time in bed for at least 8 hours. 6. Precautions related to driving. No driving if feel any sleepiness, patient is aware about civil and criminal liability for unsafe driving. 7. I will maintain prescription for PAP supplies including mask, tube, filters. 8. Follow up visit after sleep test. 9. Watching and losing weight. Thank you very much for allowing me to participate in the management of your patient. Ryder Meza MD, PhD, FAASM. Diplomat of [place] [employer], Sleep Medicine Board by [place] [employer] [place]
== END ==
LOC: 3 N SLEEP 13:14
PROVIDERS: ATTEND Internal Medicine
DX: G47.33 Obstructive sleep apnea (adult) (pediatric) (principal); E66.9 Obesity, unspecified; G47.419 Narcolepsy without cataplexy; I10 Essential (primary) hypertension; I25.10 Atherosclerotic heart disease of native coronary artery without angina pectoris; J44.9 Chronic obstructive pulmonary disease, unspecified; F12.90 Cannabis use, unspecified, uncomplicated; M79.7 Fibromyalgia; F17.200 Nicotine dependence, unspecified, uncomplicated; Z90.5 Acquired absence of kidney; Z98.1 Arthrodesis status; Z98.890 Other specified postprocedural states; Z90.710 Acquired absence of both cervix and uterus; Z99.89 Dependence on other enabling machines and devices; Z68.41 Body mass index [BMI] 40.0-44.9, adult; Z79.02 Long term (current) use of antithrombotics/antiplatelets; Z91.048 Other nonmedicinal substance allergy status; Z88.5 Allergy status to narcotic agent; Z91.09 Other allergy status, other than to drugs and biological substances; Z88.8 Allergy status to other drugs, medicaments and biological substances; Z91.040 Latex allergy status; Z88.0 Allergy status to penicillin; Z79.899 Other long term (current) drug therapy; Z79.82 Long term (current) use of aspirin
CPT/HCPCS: 99212

== ENCOUNTER → 2023-07-04 | Outpatient (CLI) | payer MEDICARE ==
--- NOTE | 2023-07-04 13:35 | CT ---
EXAMINATION TYPE: CT sinus wo con DATE OF EXAM: 07/04/2023 COMPARISON: None HISTORY: sinusitis CT DLP: [address] of the paranasal sinuses was performed in the axial and coronal planes. Bone and soft tissue settings are submitted. The paranasal sinuses demonstrate normal aeration and development. The paranasal sinuses are free of mucosal thickening or air fluid level. The osteal meatal units are patent bilaterally. Nasal septal deviation from right to left. No bony destructive changes are seen within the field of view. IMPRESSION: Nasal septal deviation from right to left.
== END | disposition home or self-care (01) ==
LOC: RADCTMAIN 12:54
PROVIDERS: ATTEND Otolaryngology
DX: J34.2 Deviated nasal septum (principal); J32.0 Chronic maxillary sinusitis
CPT/HCPCS: 70486

== ENCOUNTER 2023-09-26 19:49 | Outpatient (CLI) | payer MEDICARE ==
[2023-09-27 21:31] LABS: Urine Alcohol Negative (Negative); Urine Barbiturate Negative (Negative); Urine Cocaine Negative (Negative); Urine Methadone Negative (Negative); Urine Opiates Negative (Negative); Urine Phencyclidine Negative (Negative)
--- NOTE | 2023-10-03 14:17 | P.PCN ---
Description of Procedure: CPAP titration 09/26/2023, multiple sleep latency test 09/27/2023 Titration with positive air pressure has been done for correction of respiratory abnormalities during sleep. DESCRIPTION OF PROCEDURE: The standard montage for clinical polysomnography included the electroencephalogram, the electrocardiogram, the mentalis surface elec tromyography and Lead II cardiography. The respiratory battery consisted of measurements of nasal /buccal air flow, pressure transducer measurements from the nose, thoracic and /or abdominal effort and intercostal surface electromyography. Video monitoring has been done to check for any parasomnia events. Nocturnal oxyhemoglobin saturations were obtained by finger oximetry. Step-arrieta titration with positive airway pressure was utilized to control respiratory events. Raw data of sleep recording has been reviewed and is adequate. RESULTS: Sleep efficiency was decreased to 78.6%. Latency to sleep onset was borderline 29.0 minutes.]. Sleep architecture showed stage N1 was normal 5.2%, Delta sleep was normal 5.9%, REM sleep was decreased to 14.8%. Heart rate was minimum 59 BPM, maximum 67 BPM, average 62 BPM. EMG showed 0 periodic limb movements per hour. PAP titration have been done with CPAP up to the pressure 16 cm H2O, then patient was on BiPAP up to the pressure 23/ 19 cm H2O. The best results were at the pressure 15 cm H2O. Apnea hypopnea index reduced to 2.2. Total apnea hypopnea index following whole night was 1.3 Multiple sleep latency test have been done on the following day and consisted from 5 naps. Mean sleep latency was 11.7 minutes. No sleep onset REM.'s have been documented. IMPRESSION: 1. Obstructive sleep apnea hypopnea syndrome mostly on controle with PAP tr eatment. 2. Mean sleep latency during MSLT in the range which does not confirm diagnosis of narcolepsy or idiopathic hypersomnia. Please see other impressions from consultation. PLAN: 1. The patient will continue treatment with positive air pressure every night for the whole night. 2. Watching weight. 3. Sleep hygiene with regular time in bed for at least 8 hours. 4. No driving if feeling any sleepiness. 5. I will see the patient for follow up visit to explain the results of the test and recommendations. Thank you very much for allowing me to participate in the management of your pa tient. Sincerely, Ryder Meza MD, PhD, FAASM Diplomat of [employer] [employer] Sleep Medicine Board of [employer] [place] [employer] Curator [employer] [facility] [place] cc: Jade Cobb DO
== END 2023-09-27 16:41 | disposition home or self-care (01) ==
LOC: 3 N SLEEP 19:49
PROVIDERS: ATTEND Internal Medicine
DX: G47.33 Obstructive sleep apnea (adult) (pediatric) (principal); G47.37 Central sleep apnea in conditions classified elsewhere; F17.200 Nicotine dependence, unspecified, uncomplicated; Z99.89 Dependence on other enabling machines and devices; Z91.048 Other nonmedicinal substance allergy status; Z88.5 Allergy status to narcotic agent; Z88.1 Allergy status to other antibiotic agents; Z91.040 Latex allergy status; Z88.0 Allergy status to penicillin; Z91.018 Allergy to other foods; Z88.8 Allergy status to other drugs, medicaments and biological substances
CPT/HCPCS: 80306; 95805; 95811

== ENCOUNTER → 2023-10-18 | Outpatient (CLI) | payer MEDICARE ==
[2023-10-18 11:57] VITALS: BP 106/67; PULSE 66; RESP 16; TEMP 97.9
--- NOTE | 2023-10-18 12:40 | P.PROGSL ---
Subjective DATE: 10/18/2023 FOLLOW UP VISIT. Patient with obstructive sleep apnea hypopnea syndrome return to sleep center for follow-up visit. Patient is on treatment with CPAP every night, but continued to feel sleepiness during the day. Will proceed with multiple sleep latency test which showed mean sleep latency 11.7, patient fell asleep on all naps latency was 18.5 minutes, 18 minutes, 6.5 minutes, 5.5 minutes, 10 minutes. Results are not consistent with diagnosis of narcolepsy or idiopathic hypersomnia, but still indicates some sleepiness. Patient is using PAP equipment every night for the whole night, getting PAP supplies in time. The patient does not have significant problems with the mask, PAP unit and humidification. [place] sleepiness scale is 9. I checked information from PAP unit. PAP unit pressure 8-17, average 16.4 cm H2O. Usage is 100% for more then 4 hours, average 8 hours per night. Leak is 26 l/m, which is in acceptable range. Apnea Hypopnea Index is 5.8, which is minimally increased. MEDICATIONS have been reviewed, please see below. During physical exam: GENERAL: A pleasant patient without any distress. VITAL SIGNS: Please see below, weight is 237.4 pounds lbs. HEENT: PERRLA, EOMI.low position of soft palate, [place] 4. NECK: Supple. No JVD. LUNGS: Clear to percussion and to auscultation. Good air exchange. No wheezing or rhonchi. HEART: S1, S2 regular. ABDOMEN: Soft and nontender. Slightly obese EXTREMITIES: No clubbing or cyanosis. PERSONNEL WORKER: Awake, alert, and oriented x3. No focal deficit. Impressions: 1. Obstructive sleep apnea-hypopnea syndrome. Patient demonstrated great compliance with treatment, benefiting from treatment. 2. Patient continued to feel some sleepiness during the day, including some sleepiness while driving the car. 3. Obesity, patient increased weight on 6 pounds. 4. Hypertension. 5. Coronary artery disease. 6. History of COPD. 7. History of fibromyalgia. 8. Status post left nephrectomy, patient donated her kidney. 9. Status post stent insertion to femoral arteries on both sides. 10. Back problems, status post fusion at the level L3-L4. 11. Status post cervical fusion. 12. Status post partial hysterectomy. I increased range of the pressure to the level 8-19 cm of water. Plan: 1. Continue using PAP equipment every night for the whole night. 2. Sleep hygiene with regular time in bed for at least 7.5-8 hours 3. Patient will be started on treatment with modafinil 200 mg in the morning with a goal to prevent sleepiness. 4. Advised patient to remove all remaining water from humidifier canister daily and make it dry after each usage. Refill canister with fresh distilled water before each usage. 5. Watching weight. 6. Precautions related to driving. No driving if feel any sleepiness. 7. I will maintain prescription for PAP supplies including mask, tube, filters. 8. Follow up visit in 3-4 months or earlier if patient has any problems. Thank you very much for allowing me to participate in the management of your patient. Ryder Meza MD, PhD, FAASM. Diplomat of [employer], Sleep Medicine Board by [employer] Reimbursement Liaison of [facility] Annona Lashaun Francois DO Objective - Vital Signs Vital Signs: Vital Signs Temp 97.9 F 10/18/23 11:56 Pulse 66 10/18/23 11:56 Resp 16 10/18/23 11:56 BP 106/67 10/18/23 11:56 Pulse Ox 96 10/18/23 11:56 FiO2 Intake & Output 10/17/23 10/18/23 10/18/23 18:59 06:59 18:59 Weight 107.501 kg Home Medications: Home Medications Medication Instructions Recorded Confirmed Type Clopidogrel [Plavix] 75 mg PO DAILY 05/13/15 10/18/23 History Metoprolol Tartrate [Lopressor] 25 mg PO BID 05/13/15 10/18/23 History lamoTRIgine [LaMICtal] 100 mg PO BID 09/11/18 10/18/23 History Isosorbide Mononitrate [Imdur] 150 mg PO DAILY 12/13/18 10/18/23 History Montelukast [Singulair] 10 mg PO DAILY 12/13/18 03/24/23 History Aspirin 81 mg PO HS 02/12/19 10/18/23 History Atorvastatin [Lipitor] 80 mg PO HS 03/24/23 10/18/23 History Azelaic Acid 1 applic TOPICAL DAILY 03/24/23 03/24/23 History DULoxetine HCL [Cymbalta] 20 mg PO DAILY 03/24/23 10/18/23 History Ergocalciferol [Vitamin D2 (1250 1,250 mcg PO MO 03/24/23 10/18/23 History Mcg = 92406 Iu)] Gabapentin 300 mg PO TID 03/24/23 10/18/23 History cefUROXime axetiL [Ceftin] 500 mg PO BID 10 Days #20 tab 03/25/23 Rx
== END ==
LOC: 3 N SLEEP 11:23
PROVIDERS: ATTEND Internal Medicine
DX: G47.33 Obstructive sleep apnea (adult) (pediatric) (principal); E66.9 Obesity, unspecified; I10 Essential (primary) hypertension; I25.10 Atherosclerotic heart disease of native coronary artery without angina pectoris; M53.9 Dorsopathy, unspecified; F17.200 Nicotine dependence, unspecified, uncomplicated; Z87.09 Personal history of other diseases of the respiratory system; Z87.39 Personal history of other diseases of the musculoskeletal system and connective tissue; Z98.1 Arthrodesis status; Z90.711 Acquired absence of uterus with remaining cervical stump; Z98.890 Other specified postprocedural states; Z90.5 Acquired absence of kidney; Z99.89 Dependence on other enabling machines and devices; Z91.048 Other nonmedicinal substance allergy status; Z88.5 Allergy status to narcotic agent; Z91.040 Latex allergy status; Z88.0 Allergy status to penicillin; Z88.8 Allergy status to other drugs, medicaments and biological substances; Z91.018 Allergy to other foods; Z88.1 Allergy status to other antibiotic agents; Z79.899 Other long term (current) drug therapy; Z79.02 Long term (current) use of antithrombotics/antiplatelets
CPT/HCPCS: 99212

== ENCOUNTER 2023-10-25 06:44 | Day surgery (SDC) | payer MEDICARE ==
[2023-10-23 09:23] VITALS: BMI 42.7
[~2023-10-25 06:44] MED LIST changes: -ALPRAZolam 0.25 MG TAB PO PRN; -ALPRAZolam 0.5 MG TAB PO PRN; -ASPIRIN 325 MG TAB PO STA; -ATORVASTATIN 80 MG TAB PO STA; +LACTATED RINGERS 1,000 ML IV SCH; -NITROGLYCERIN SL TABS 0.4 MG TAB SUBLINGUAL PRN; -SODIUM CHLORIDE 0.9% 1,000 ML in EMPTY BAG 1 BAG IV ONE
[2023-10-25] MEDS: IV FLUID CONTINUATION 1,000 ML IV ONE (07:14)
[2023-10-25 07:31] LABS: Glucose,Whole Blood 98 mg/dL (70-110)
[2023-10-25 07:32] VITALS: RESP 16; TEMP 98
[2023-10-25] MEDS ORDERED: PROPOFOL 10 MG/ML 20 ML VIAL IV ONE (07:49)
[2023-10-25] MEDS ORDERED: LIDOCAINE 1% INJ 10MG/ML (20 ML MDV) ONE (07:49)
--- NOTE | 2023-10-25 07:52 | P.GSHP ---
History of Present Illness H&P Date: 10/25/23 Chief Complaint: Screening colonoscopy Is a 63-year-old female who presents today for screening colonoscopy. Patient denies any significant GI complaints. Past Medical History Past Medical History: Asthma, Coronary Artery Disease (CAD), Cancer, Chest Pain / Angina, COPD, Diabetes Mellitus, Fibromyalgia, Hyperlipidemia, Hypertension, Osteoarthritis (OA), Sleep Apnea/CPAP/BIPAP, Vascular Disorder Additional Past Medical History / Comment(s): uses cpap,Diabetes type II diet controlled, AAA - being monitored, PVD, ulcer age 14, vertigo, hx cervical cancer, narcolepsy History of Any Multi-Drug Resistant Organisms: None Reported Past Surgical History: Appendectomy, Back Surgery, Section, Cholecystectomy, Heart Catheterization, Hysterectomy, Orthopedic Surgery, Tubal Ligation Additional Past Surgical History / Comment(s): Donated left kidney to her sister-L nephrectomy, bilateral femoral stents, cervical fusion with plate and 4 screws (used pts pelvic bone), cyst removed from back (was wrapped around spinal cord) and back surgery with ravi, D&C Past Anesthesia/Blood Transfusion Reactions: No Reported Reaction Additional Past Anesthesia/Blood Transfusion Reaction / Comment(s): diff coming out after first - "too much anesthesia", no hx blood transfusion Past Psychological History: Anxiety, PTSD Smoking Status: Current every day smoker Past Alcohol Use History: None Reported Additional Past Alcohol Use History / Comment(s): Pt started smoking at age 16 (1976). smoking < 1 PPD Past Drug Use History: None Reported Additional Drug Use History / Comment(s): . - Past Family History Mother Family Medical History: Deep Vein Thrombosis (DVT), Myocardial Infarction ([place]), Pulmonary Embolus Additional Family Medical History / Comment(s): scleroderma. [place] x 4 Father Family Medical History: Musculoskeletal Disorder, Neurologic Disorder Additional Family Medical History / Comment(s): Father is . He had parkinson's dx. Medications and Allergies Home Medications Medication Instructions Recorded Confirmed Type Clopidogrel [Plavix] 75 mg PO DAILY 05/13/15 10/25/23 History Metoprolol Tartrate [Lopressor] 25 mg PO DAILY 05/13/15 10/25/23 History Isosorbide Mononitrate [Imdur] 150 mg PO DAILY 12/13/18 10/25/23 History Montelukast [Singulair] 10 mg PO DAILY 12/13/18 10/25/23 History Atorvastatin [Lipitor] 80 mg PO HS 03/24/23 10/25/23 History DULoxetine HCL [Cymbalta] 20 mg PO DAILY 03/24/23 10/25/23 History Ergocalciferol [Vitamin D2 (1250 1,250 mcg PO Q7D 03/24/23 10/25/23 History Mcg = 34199 Iu)] Gabapentin 300 mg PO BID 03/24/23 10/25/23 History Cetirizine HCl [Zyrtec] 10 mg PO DAILY 10/23/23 10/25/23 History Cyclobenzaprine [Flexeril] 5 mg PO TID PRN 10/23/23 10/25/23 History Nf-Narcolepsy Medication Unk 20 mg PO DAILY 10/23/23 10/25/23 History Allergies Allergy/AdvReac Type Severity Reaction Status Date / Time adhesive tape Allergy Rash/Hives Verified 10/25/23 07:32 codeine Allergy Anaphylaxis Verified 10/25/23 07:32 erythromycin base Allergy Rash/Hives Verified 10/25/23 07:32 hydromorphone HCl Allergy Anaphylaxis Verified 10/25/23 07:32 [From Dilaudid] latex Allergy Swelling, Verified 10/25/23 07:32 itching Penicillins Allergy Rash/Hives Verified 10/25/23 07:32 tuberculin, purified protein Allergy Itching, Verified 10/25/23 07:32 deriva Swelling tuberculin,PPD,multi-puncture Allergy Itching, Verified 10/25/23 07:32 Swelling guaifenesin AdvReac Dizziness Verified 10/25/23 07:32 meclizine AdvReac Nausea & Verified 10/25/23 07:32 Vomiting morphine AdvReac Hallucinati Verified 10/25/23 07:32 ons,vomitin g tramadol AdvReac Nausea & Verified 10/25/23 07:32 Vomiting varenicline AdvReac Hallucinati Verified 10/25/23 07:32 ons Tb skin test Allergy Itching, Uncoded 10/25/23 07:32 Swelling Surgical - Exam Vital Signs Temp Pulse Resp BP Pulse Ox 98 F 62 16 129/59 94 L 10/25/23 07:31 10/25/23 07:31 10/25/23 07:31 10/25/23 07:31 10/25/23 07:31 - General well developed, well nourished, no distress - Eyes PERRL - ENT normal pinna - Neck no masses - Respiratory normal expansion - Cardiovascular Rhythm: regular - Abdomen Abdomen: soft, non tender Assessment and Plan Assessment: Will perform screening colonoscopy.
--- NOTE | 2023-10-25 08:10 | P.OP ---
Date of Procedure: 10/25/23 Preoperative Diagnosis: Screening colonoscopy Postoperative Diagnosis: Right colon polyp Procedure(s) Performed: Colonoscopy Anesthesia: MAC Surgeon: Jerome Peters Pathology: other (Right colon polyp) Condition: stable Disposition: PACU Description of Procedure: T the patient is placed on the endoscopy table in the lateral position. She received IV sedation. Digital rectal exam was performed. This revealed no abnormalities. The flexible colonoscope was then placed patient anus and passed throughout the entire colon. The ileocecal valve was visualized. The cecum appeared normal. In the right colon there is a small polyp seen was removed with a cold forcep. The scope was then withdrawn. Remainder of the ascending colon transverse colon and descending colon appeared normal. The sigmoid colon appeared normal. Scope was back to the rectum and this appeared normal. Scope withdrawn the patient.
[2023-10-25 08:30] VITALS: BP 115/65; PULSE 55
== END 2023-10-25 08:50 | disposition home or self-care (01) ==
LOC: ORWHC2ENDO 06:44
PROVIDERS: ATTEND Surgery
DX: Z12.11 Encounter for screening for malignant neoplasm of colon (principal); K63.5 Polyp of colon; I25.10 Atherosclerotic heart disease of native coronary artery without angina pectoris; E11.51 Type 2 diabetes mellitus with diabetic peripheral angiopathy without gangrene; J44.9 Chronic obstructive pulmonary disease, unspecified; J45.909 Unspecified asthma, uncomplicated; M79.7 Fibromyalgia; M19.90 Unspecified osteoarthritis, unspecified site; E78.5 Hyperlipidemia, unspecified; I10 Essential (primary) hypertension; G47.30 Sleep apnea, unspecified; F17.210 Nicotine dependence, cigarettes, uncomplicated; F41.9 Anxiety disorder, unspecified; I73.9 Peripheral vascular disease, unspecified; Z85.41 Personal history of malignant neoplasm of cervix uteri; Z90.49 Acquired absence of other specified parts of digestive tract; Z90.710 Acquired absence of both cervix and uterus; Z82.49 Family history of ischemic heart disease and other diseases of the circulatory system; Z86.59 Personal history of other mental and behavioral disorders; Z83.2 Family history of diseases of the blood and blood-forming organs and certain disorders involving the immune mechanism; Z79.02 Long term (current) use of antithrombotics/antiplatelets; Z79.811 Long term (current) use of aromatase inhibitors; Z79.51 Long term (current) use of inhaled steroids; Z88.1 Allergy status to other antibiotic agents; Z88.5 Allergy status to narcotic agent; Z91.040 Latex allergy status; Z88.0 Allergy status to penicillin
CPT/HCPCS: 88305; 45380; J2001; J2704

== ENCOUNTER 2024-01-26 18:40 | Emergency (ER) | payer MEDICARE ==
[2024-01-26 18:52] VITALS: TEMP 99.5
[2024-01-26] MEDS: DEXAMETHASONE SOD PHOSPHATE 10 MG/ML 1 ML VIAL IM STA (19:06)
--- NOTE | 2024-01-26 19:07 | ED ---
ENT HPI - General Chief complaint: ENT Stated complaint: sore throat/congestion Time Seen by Provider: 01/26/24 18:52 Source: patient, RN notes reviewed Mode of arrival: ambulatory Limitations: no limitations - History of Present Illness Initial comments: This is a 63-year-old female who presents to the emergency department for fevers and a sore throat. States that when she woke up yesterday she noticed that the lymph nodes on the right side of her neck were swollen and painful. Since then she has had fevers and a sore throat. Reports a mild associated cough. 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 States that it is painful to speak and swallow. MD complaint: sore throat - Related Data Home Medications Medication Instructions Recorded Confirmed Clopidogrel [Plavix] 75 mg PO DAILY 05/13/15 10/25/23 Metoprolol Tartrate [Lopressor] 25 mg PO DAILY 05/13/15 10/25/23 Isosorbide Mononitrate [Imdur] 150 mg PO DAILY 12/13/18 10/25/23 Montelukast [Singulair] 10 mg PO DAILY 12/13/18 10/25/23 Atorvastatin [Lipitor] 80 mg PO HS 03/24/23 10/25/23 DULoxetine HCL [Cymbalta] 20 mg PO DAILY 03/24/23 10/25/23 Ergocalciferol [Vitamin D2 (1250 1,250 mcg PO Q7D 03/24/23 10/25/23 Mcg = 43048 Iu)] Gabapentin 300 mg PO BID 03/24/23 10/25/23 Cetirizine HCl [Zyrtec] 10 mg PO DAILY 10/23/23 10/25/23 Cyclobenzaprine [Flexeril] 5 mg PO TID PRN 10/23/23 10/25/23 Nf-Narcolepsy Medication Unk 20 mg PO DAILY 10/23/23 10/25/23 Previous Rx's Medication Instructions Recorded Cephalexin [Keflex] 500 mg PO Q12HR 10 Days #20 cap 01/26/24 Allergies Allergy/AdvReac Type Severity Reaction Status Date / Time adhesive tape Allergy Rash/Hives Verified 01/26/24 18:52 codeine Allergy Anaphylaxis Verified 01/26/24 18:52 erythromycin base Allergy Rash/Hives Verified 01/26/24 18:52 hydromorphone HCl Allergy Anaphylaxis Verified 01/26/24 18:52 [From Dilaudid] latex Allergy Swelling, Verified 01/26/24 18:52 itching Penicillins Allergy Rash/Hives Verified 01/26/24 18:52 tuberculin, purified protein Allergy Itching, Verified 01/26/24 18:52 deriva Swelling tuberculin,PPD,multi-puncture Allergy Itching, Verified 01/26/24 18:52 Swelling guaifenesin AdvReac Dizziness Verified 01/26/24 18:52 meclizine AdvReac Nausea & Verified 01/26/24 18:52 Vomiting morphine AdvReac Hallucinati Verified 01/26/24 18:52 ons,vomitin g tramadol AdvReac Nausea & Verified 01/26/24 18:52 Vomiting varenicline AdvReac Hallucinati Verified 01/26/24 18:52 ons Tb skin test Allergy Itching, Uncoded 01/26/24 18:52 Swelling Review of Systems ROS Statement: Those systems with pertinent positive or pertinent negative responses have been documented in the HPI. ROS Other: All systems not noted in ROS Statement are negative. Past Medical History Past Medical History: Asthma, Coronary Artery Disease (CAD), Cancer, Chest Pain / Angina, COPD, Diabetes Mellitus, Fibromyalgia, Hyperlipidemia, Hypertension, Osteoarthritis (OA), Sleep Apnea/CPAP/BIPAP, Vascular Disorder Additional Past Medical History / Comment(s): uses cpap,Diabetes type II diet controlled, AAA - being monitored, PVD, ulcer age 14, vertigo, donated left kidney , hx cervical cancer History of Any Multi-Drug Resistant Organisms: None Reported Past Surgical History: Appendectomy, Back Surgery, Section, Cholecystectomy, Heart Catheterization, Hysterectomy, Orthopedic Surgery, Tubal Ligation Additional Past Surgical History / Comment(s): Donated left kidney to her sister-L nephrectomy, bilateral femoral stents which occluded with plaque then cleaned out, cervical fusion with plate and 4 screws, cyst removed from back and back surgery with ravi, R hip bone donor, D&C Past Anesthesia/Blood Transfusion Reactions: No Reported Reaction Additional Past Anesthesia/Blood Transfusion Reaction / Comment(s): diff coming out after first - "too much anesthesia".no hx blood transfusion Past Psychological History: Bipolar, PTSD Smoking Status: Current every day smoker Past Alcohol Use History: None Reported Past Drug Use History: None Reported - Past Family History Mother Family Medical History: Deep Vein Thrombosis (DVT), Myocardial Infarction ([place]), Pulmonary Embolus Additional Family Medical History / Comment(s): scleroderma. [place] x 4 Father Family Medical History: Musculoskeletal Disorder, Neurologic Disorder Additional Family Medical History / Comment(s): Father is . He had parkinson's dx. General Exam Limitations: no limitations General appearance: alert, in no apparent distress Head exam: Present: atraumatic, normocephalic, normal inspection ENT exam: Present: other (Posterior pharyngeal erythema and mild tonsillar hypertrophy, no exudates) Neck exam: Present: full ROM, other (Anterior cervical lymphadenopathy). Absent: meningismus Respiratory exam: Present: normal lung sounds bilaterally. Absent: respiratory distress, wheezes, rales, rhonchi, stridor Cardiovascular Exam: Present: regular rate, normal rhythm, normal heart sounds. Absent: systolic murmur, diastolic murmur, rubs, gallop, clicks Neurological exam: Present: alert, oriented X3, CN II-XII intact Psychiatric exam: Present: normal affect, normal mood Skin exam: Present: warm, dry, intact, normal color. Absent: rash Course Vital Signs 01/26/24 01/26/24 18:48 20:30 Temperature 99.5 F Pulse Rate 88 90 Respiratory 20 18 Rate Blood Pressure 117/65 110/60 O2 Sat by Pulse 95 97 Oximetry Medical Decision Making - Medical Decision Making This is a 63 year old female who presents to the emergency department for a sore throat and fevers. Was pt. sent in by a medical professional or institution? @ -No Did you speak to anyone other than the patient for history? @ -No Did you review nursing and triage notes? @ -Yes, and I agree, it is accurate with regards to the patient's symptoms. Were old charts reviewed? @ -No Differential Diagnosis? @ -Differential Sore Throat: Strep pharyngitis, herpes zoster, COVID, influenza, GERD, allergic rhinitis, mononucleosis, this is not meant to be an all-inclusive list. EKG interpreted by me (3pts min.)? @ -Not obtained X-rays interpreted by me (1pt min.)? @ -Chest x-ray obtained, my interpretation identifies no localized consolidations or infiltrates. CT interpreted by me (1pt min.)? @ -Not obtained U/S interpreted by me (1pt. min.)? @ -Not obtained What testing was considered but not performed? (CT, X-rays, U/S, labs)? Why? @ -None What meds were considered but not given? Why? @ -None Did you discuss the management of the patient with other professionals? @ -No Did you reconcile home meds? @ -No Was smoking cessation discussed for >3mins.? @ -I discussed smoking cessation for greater than 3 minutes. The risk of smoking were discussed with the patient including but not limited to risks of cancer, stroke, coronary artery disease and COPD. Also discussed with patient were multiple methods of quitting smoking. Lastly we discussed the financial cost of smoking. Was critical care preformed (if so, how long)? @ -No Were there social determinants of health that impacted care today? How? (Homelessness, low income, unemployed, alcoholism, drug addiction, transportation, low edu. Level, literacy, decrease access to med. care, custodial, rehab)? @ -No Was there de-escalation of care discussed even if they declined? (Discuss DNR or withdrawal of care, Hospice)? @ -No What co-morbidities impacted this encounter? (DM, HTN, Smoking, COPD, CAD, Cancer, CVA, Hep., AIDS, mental health diagnosis, sleep apnea, morbid obesity)? @ -Smoking, DM Was patient admitted / discharged? @ -Discharged. Rapid strep test positive. COVID, influenza, and RSV testing negative. Chest x-ray reveals no acute process. IM Decadron administered. Prescription for Keflex provided for strep pharyngitis. Advised Tylenol as needed for any additional fevers or discomfort. Patient discharged home in stable condition. Case discussed with ED attending Dr. Puga. Return precautions reviewed in depth, the patient is instructed to return to the emergency department with any new, worsening, or concerning symptoms. Patient verbalized understanding. Undiagnosed new problem with uncertain prognosis? @ -None Drug Therapy requiring intensive monitoring for toxicity (Heparin, Nitro, Insulin, Cardizem)? @ -None Were any procedures done? @ -None Diagnosis/symptom? @ -Strep pharyngitis Acute, or Chronic, or Acute on Chronic? @ -Acute Uncomplicated (without systemic symptoms) or Complicated (systemic symptoms)? @ -Uncomplicated Side effects of treatment? @ -None Exacerbation, Progression, or Severe Exacerbation] @ -Not applicable Poses a threat to life or bodily function? @ -No - Lab Data Lab Results 01/26/24 01/26/24 Range/Units 19:08 19:08 Influenza Type A (PCR) Not Detected (Not Detectd) Influenza Type B (PCR) Not Detected (Not Detectd) RSV (PCR) Not Detected (Not Detectd) SARS-CoV-2 (PCR) Not Detected (Not Detectd) Group A Strep (PCR) DETECTED A (Not Detectd) - Radiology Data Radiology results: report reviewed, image reviewed Disposition Clinical Impression: Strep pharyngitis, Nicotine dependence Disposition: HOME SELF-CARE Condition: Good Instructions (If sedation given, give patient instructions): Strep Throat (ED) Additional Instructions: Return to the emergency department with any new, worsening, or concerning symptoms. Take the antibiotic as prescribed for 10 days. Take Tylenol as needed for any additional fevers or discomfort. Follow up with your primary ca re provider in 1-2 days. Prescriptions: Cephalexin [Keflex] 500 mg PO Q12HR 10 Days #20 cap Is patient prescribed a controlled substance at d/c from ED?: No Referrals: Fabrice Dobson MD [Primary Care Provider] - 1-2 days Time of Disposition: 20:09
--- NOTE | 2024-01-26 19:41 | XR ---
EXAMINATION TYPE: XR chest 2V DATE OF EXAM: 01/26/2024 COMPARISON: 10/05/2022 HISTORY: 63 year-old female fever and cough TECHNIQUE: PA and lateral views FINDINGS: Heart upper limits of normal in size. Mild interstitial prominence and mild hyperinflation is unchang ed. ACF hardware. Hazy lower lung densities related to overlying soft tissue. No consolidation or ple ural effusion. IMPRESSION: Borderline heart size and COPD. No acute process seen. [facility], , 01/26/2024 7:38 PM
[2024-01-26] MEDS ORDERED: CEPHALEXIN 500MG STARTER PACK 4 CAP BTL PO STA (20:10)
[2024-01-26 20:30] VITALS: BP 110/60; PULSE 90; RESP 18
== END 2024-01-26 20:38 | disposition home or self-care (01) ==
LOC: EC 18:40
CPT/HCPCS: 71046; 87636; 87651; 96372; 99283; 99406

== ENCOUNTER 2024-01-27 20:06 | Emergency (ER) | payer MEDICARE ==
--- NOTE | 2024-01-27 20:46 | ED ---
Allergic Reaction HPI - General Chief complaint: Allergic Reaction Stated complaint: Allergic Reaction - Medication Time Seen by Provider: 01/27/24 20:12 Source: patient, RN notes reviewed Mode of arrival: ambulatory Limitations: no limitations - History of Present Illness Initial Comments: This is a 63-year-old female who presents to the emergency department for concerns of an allergic reaction. Patient was evaluated here last night and diagnosed with strep throat. She was started on Keflex. She has not had problems with cephalosporins before, only penicillins. States that after taking it she started to develop facial swelling and itching, and is concerned about developing an allergic reaction. Denies any chest pain or shortness of breath. MD Complaint: allergic reaction - Related Data Home Medications Medication Instructions Recorded Confirmed Clopidogrel [Plavix] 75 mg PO DAILY 05/13/15 10/25/23 Metoprolol Tartrate [Lopressor] 25 mg PO DAILY 05/13/15 10/25/23 Isosorbide Mononitrate [Imdur] 150 mg PO DAILY 12/13/18 10/25/23 Montelukast [Singulair] 10 mg PO DAILY 12/13/18 10/25/23 Atorvastatin [Lipitor] 80 mg PO HS 03/24/23 10/25/23 DULoxetine HCL [Cymbalta] 20 mg PO DAILY 03/24/23 10/25/23 Ergocalciferol [Vitamin D2 (1250 1,250 mcg PO Q7D 03/24/23 10/25/23 Mcg = 41065 Iu)] Gabapentin 300 mg PO BID 03/24/23 10/25/23 Cetirizine HCl [Zyrtec] 10 mg PO DAILY 10/23/23 10/25/23 Cyclobenzaprine [Flexeril] 5 mg PO TID PRN 10/23/23 10/25/23 Nf-Narcolepsy Medication Unk 20 mg PO DAILY 10/23/23 10/25/23 Previous Rx's Medication Instructions Recorded Cephalexin [Keflex] 500 mg PO Q12HR 10 Days #20 cap 01/26/24 clindamycin HCL 300 mg PO Q6H 10 Days #40 capsule 01/27/24 Allergies Allergy/AdvReac Type Severity Reaction Status Date / Time adhesive tape Allergy Rash/Hives Verified 01/27/24 20:10 cephalexin [From Keflex] Allergy Rash/Hives Verified 01/27/24 21:04 codeine Allergy Anaphylaxis Verified 01/27/24 20:10 erythromycin base Allergy Rash/Hives Verified 01/27/24 20:10 hydromorphone HCl Allergy Anaphylaxis Verified 01/27/24 20:10 [From Dilaudid] latex Allergy Swelling, Verified 01/27/24 20:10 itching Penicillins Allergy Rash/Hives Verified 01/27/24 20:10 tuberculin, purified protein Allergy Itching, Verified 01/27/24 20:10 deriva Swelling tuberculin,PPD,multi-puncture Allergy Itching, Verified 01/27/24 20:10 Swelling guaifenesin AdvReac Dizziness Verified 01/27/24 20:10 meclizine AdvReac Nausea & Verified 01/27/24 20:10 Vomiting morphine AdvReac Hallucinati Verified 01/27/24 20:10 ons,vomitin g tramadol AdvReac Nausea & Verified 01/27/24 20:10 Vomiting varenicline AdvReac Hallucinati Verified 01/27/24 20:10 ons Tb skin test Allergy Itching, Uncoded 01/27/24 20:10 Swelling Review of Systems ROS Statement: Those systems with pertinent positive or pertinent negative responses have been documented in the HPI. ROS Other: All systems not noted in ROS Statement are negative. Past Medical History Past Medical History: Asthma, Coronary Artery Disease (CAD), Cancer, Chest Pain / Angina, COPD, Diabetes Mellitus, Fibromyalgia, Hyperlipidemia, Hypertension, Osteoarthritis (OA), Sleep Apnea/CPAP/BIPAP, Vascular Disorder Additional Past Medical History / Comment(s): uses cpap,Diabetes type II diet controlled, AAA - being monitored, PVD, ulcer age 14, vertigo, donated left kidney , hx cervical cancer History of Any Multi-Drug Resistant Organisms: None Reported Past Surgical History: Appendectomy, Back Surgery, Section, Cholecystectomy, Heart Catheterization, Hysterectomy, Orthopedic Surgery, Tubal Ligation Additional Past Surgical History / Comment(s): Donated left kidney to her sister-L nephrectomy, bilateral femoral stents which occluded with plaque then cleaned out, cervical fusion with plate and 4 screws, cyst removed from back and back surgery with ravi, R hip bone donor, D&C Past Anesthesia/Blood Transfusion Reactions: No Reported Reaction Additional Past Anesthesia/Blood Transfusion Reaction / Comment(s): diff coming out after first - "too much anesthesia".no hx blood transfusion Past Psychological History: Bipolar, PTSD Smoking Status: Current every day smoker Past Alcohol Use History: None Reported Past Drug Use History: None Reported - Past Family History Mother Family Medical History: Deep Vein Thrombosis (DVT), Myocardial Infarction ([place]), Pulmonary Embolus Additional Family Medical History / Comment(s): scleroderma. [place] x 4 Father Family Medical History: Musculoskeletal Disorder, Neurologic Disorder Additional Family Medical History / Comment(s): Father is . He had parkinson's dx. General Exam Limitations: no limitations General appearance: alert, in no apparent distress Head exam: Present: atraumatic, normocephalic, normal inspection Eye exam: Present: normal appearance, PERRL, EOMI. Absent: scleral icterus, conjunctival injection, periorbital swelling Respiratory exam: Present: normal lung sounds bilaterally. Absent: respiratory distress, wheezes, rales, rhonchi, stridor Cardiovascular Exam: Present: regular rate, normal rhythm, normal heart sounds. Absent: systolic murmur, diastolic murmur, rubs, gallop, clicks Neurological exam: Present: alert, oriented X3, CN II-XII intact Psychiatric exam: Present: normal affect, normal mood Skin exam: Present: warm, dry, intact, other (Mild flushing of the face. No obvious swelling. No urticaria) Course Vital Signs 01/27/24 01/27/24 01/27/24 20:08 21:43 22:57 Temperature 98 F 98.3 F Pulse Rate 82 75 53 L Respiratory 16 22 16 Rate Blood Pressure 120/59 149/82 153/78 O2 Sat by Pulse 94 L 97 98 Oximetry Medical Decision Making - Medical Decision Making This is a 63-year-old female who presents to the emergency department for concerns of an allergic reaction. Was pt. sent in by a medical professional or institution? @ -No Did you speak to anyone other than the patient for history? @ -No Did you review nursing and triage notes? @ -Yes, and I agree, it is accurate with regards to the patient's symptoms. Were old charts reviewed? @ -No Differential Diagnosis? @ -Allergic reaction, dermatitis, eczema, burn, rosacea, this is not meant to be an all-inclusive list. EKG interpreted by me (3pts min.)? @ -EKG interpreted by me demonstrating the following: Sinus rhythm. Ventricular rate 72 bpm, [place] interval 155 ms, QRS duration 107 ms, QTc 434 ms. X-rays interpreted by me (1pt min.)? @ -Not obtained CT interpreted by me (1pt min.)? @ -Not obtained U/S interpreted by me (1pt. min.)? @ -Not obtained What testing was considered but not performed? (CT, X-rays, U/S, labs)? Why? @ -None What meds were considered but not given? Why? @ -None Did you discuss the management of the patient with other professionals? @ -No Did you reconcile home meds? @ -No Was smoking cessation discussed for >3mins.? @ -No Was critical care preformed (if so, how long)? @ -No Were there social determinants of health that impacted care today? How? (Homelessness, low income, unemployed, alcoholism, drug addiction, transportation, low edu. Level, literacy, decrease access to med. care, half-way, rehab)? @ -No Was there de-escalation of care discussed even if they declined? (Discuss DNR or withdrawal of care, Hospice)? @ -No What co-morbidities impacted this encounter? (DM, HTN, Smoking, COPD, CAD, Cancer, CVA, Hep., AIDS, mental health diagnosis, sleep apnea, morbid obesity)? @ -None Was patient admitted / discharged? @ -Discharged. Patient treated with an allergy cocktail consisting of Solu- Medrol, Benadryl, and famotidine. She had significant relief in symptoms following those medications. Advised that we can switch her to clindamycin for the strep throat. Initial dose administered in the emergency department, which she tolerated well. She did start to complain of some heartburn. Nursing staff performed an EKG which was unremarkable. After resting her symptoms had essentially resolved and she requested discharge home. Prescription for clindamycin prescribed for the strep throat to be taken in place of the Keflex. Keflex added to her allergy list. Patient discharged home in stable condition and advised to follow-up with her primary care provider. Case discussed with ED attending Dr. Puga. Return precautions reviewed in depth, the patient is instructed to return to the emergency department with any new, worsening, or concerning symptoms. Patient verbalized understanding. Undiagnosed new problem with uncertain prognosis? @ -None Drug Therapy requiring intensive monitoring for toxicity (Heparin, Nitro, Insulin, Cardizem)? @ -None Were any procedures done? @ -None Diagnosis/symptom? @ -Allergic reaction to medication, strep pharyngitis Acute, or Chronic, or Acute on Chronic? @ -Acute Uncomplicated (without systemic symptoms) or Complicated (systemic symptoms)? @ -Uncomplicated Side effects of treatment? @ -None Exacerbation, Progression, or Severe Exacerbation] @ -Not applicable Poses a threat to life or bodily function? @ -No Disposition Clinical Impression: Allergic reaction to drug, Strep pharyngitis Disposition: HOME SELF-CARE Condition: Good Instructions (If sedation given, give patient instructions): Urticaria (ED), Strep Throat (ED) Additional Instructions: Return to the emergency department with any new, worsening, or concerning symptoms. Take the new antibiotic as prescribed for 10 days. Follow up with your primary care provider in 1-2 days. Prescriptions: clindamycin HCL 300 mg PO Q6H 10 Days #40 capsule Is patient prescribed a controlled substance at d/c from ED?: No Referrals: Fabrice Dobson MD [Primary Care Provider] - 1-2 days Time of Disposition: 22:33
[2024-01-27] MEDS: diphenhydrAMINE 50 MG/ML 1 ML VIAL IVP STA (20:50)
[2024-01-27] MEDS: methylPREDNISolone SOD SUCCI 125 MG/2 ML VIAL IV STA (20:53)
[2024-01-27] MEDS: FAMOTIDINE 20 MG/2 ML VIAL IV STA (20:54)
[2024-01-27] MEDS: CLINDAMYCIN 150 MG CAP PO STA (20:57)
[2024-01-27] MEDS: SODIUM CHLORIDE 0.9% 1,000 ML IV STA (21:45)
[2024-01-27] MEDS: CALCIUM CARBONATE 500 MG CHEWABLE PO STA (22:46)
[2024-01-27 23:11] VITALS: BP 153/78; PULSE 53; RESP 16; TEMP 98.3
== END 2024-01-27 22:57 | disposition home or self-care (01) ==
LOC: EC 20:06
CPT/HCPCS: 93005; 96361; 96374; 96375; 99283

== ENCOUNTER → 2024-01-30 | Outpatient (CLI) | payer MEDICARE ==
[2024-01-30 11:49] VITALS: BP 96/64; PULSE 62; RESP 16; TEMP 97.6
--- NOTE | 2024-01-30 12:08 | P.PROGSL ---
Subjective DATE: 01/30/2024 FOLLOW UP VISIT. Patient with obstructive sleep apnea hypopnea syndrome return to sleep center for follow-up visit. Information from previous visit have been reviewed. Patient improved show sleep schedule, feels less sleepy during the day at the present time and she stopped using modafinil. Patient is using PAP equipment every night for the whole night, getting PAP supplies in time. The patient does not have significant problems with the mask, PAP unit and humidification. Alba sleepiness scale is 6, which is normal. I checked information from PAP unit. PAP unit pressure 8-19, average 16.4 cm H2O. Usage is 100% for more then 4 hours, average 8.5 hours per night. Leak is 16 l/m, which is in acceptable range. Apnea Hypopnea Index is 6.3, which is borderline. MEDICATIONS have been reviewed, please see below. During physical exam: GENERAL: A pleasant patient without any distress. VITAL SIGNS: Please see below, weight is 234 pounds lbs. HEENT: PERRLA, EOMI.low position of soft palate, Mallapati 4 . NECK: Supple. No JVD. LUNGS: Clear to percussion and to auscultation. Good air exchange. No wheezing or rhonchi. HEART: S1, S2 regular. ABDOMEN: Soft and nontender. Obese EXTREMITIES: No clubbing or cyanosis. INSPECTING ENGINEER: Awake, alert, and oriented x3. No focal deficit. Impressions: 1. Obstructive sleep apnea-hypopnea syndrome. Patient demonstrated great compliance with treatment, benefiting from treatment. 2. Obesity, patient lost 3 pounds comparing with previous visit. 3. Status post recent strep throat infection. 4. Hypertension. 5. Coronary artery disease. 6. Allergy to sulfa, founded recently. 7. History of COPD. 8. Status post stent insertion to femoral arteries on both sides. 9. Status post nephrectomy, kidney was donated. 10. History of fibromyalgia. 11. Status post fusion at the level L3-L4. 12. Status post cervical fusion 13. Status post partial hysterectomy Plan: 1. Continue using PAP equipment every night for the whole night. 2. Sleep hygiene with regular time in bed for at least 7.5-8 hours 3. PAP unit should stay lower then position of the head. 4. Advised patient to remove all remaining water from humidifier canister daily and make it dry after each usage. Refill canister with fresh distilled water before each usage. 5. Watching and losing weight. 6. Precautions related to driving. No driving if feel any sleepiness. 7. I will maintain prescription for PAP supplies including mask, tube, filters. 8. Follow up visit in 8 months or earlier if patient has any problems. Thank you very much for allowing me to participate in the management of your patient. Ryder Meza MD, PhD, FAASM. Diplomat of [place] [employer], Sleep Medicine Board by [place] [employer] Supervisor [facility] [place] cc: Fabrice Dobson MD Objective - Vital Signs Vital Signs: Vital Signs Temp 97.6 F 01/30/24 11:48 Pulse 62 01/30/24 11:48 Resp 16 01/30/24 11:48 BP 96/64 01/30/24 11:48 Pulse Ox 96 01/30/24 11:48 FiO2 Intake & Output 01/29/24 01/30/24 01/30/24 18:59 06:59 18:59 Weight 106.141 kg Home Medications: Home Medications Medication Instructions Recorded Confirmed Type Clopidogrel [Plavix] 75 mg PO DAILY 05/13/15 01/30/24 History Metoprolol Tartrate [Lopressor] 25 mg PO DAILY 05/13/15 01/30/24 History Isosorbide Mononitrate [Imdur] 150 mg PO DAILY 12/13/18 01/30/24 History Montelukast [Singulair] 10 mg PO DAILY 12/13/18 01/30/24 History Atorvastatin [Lipitor] 80 mg PO HS 03/24/23 01/30/24 History DULoxetine HCL [Cymbalta] 20 mg PO DAILY 03/24/23 01/30/24 History Ergocalciferol [Vitamin D2 (1250 1,250 mcg PO Q7D 03/24/23 01/30/24 History Mcg = 50361 Iu)] Gabapentin 300 mg PO BID 03/24/23 01/30/24 History Cetirizine HCl [Zyrtec] 10 mg PO DAILY 10/23/23 10/25/23 History Cyclobenzaprine [Flexeril] 5 mg PO TID PRN 10/23/23 10/25/23 History Nf-Narcolepsy Medication Unk 20 mg PO DAILY 10/23/23 10/25/23 History Cephalexin [Keflex] 500 mg PO Q12HR 10 Days #20 cap 01/26/24 Rx clindamycin HCL 300 mg PO Q6H 10 Days #40 capsule 01/27/24 Rx
== END ==
LOC: 3 N SLEEP 11:24
PROVIDERS: ATTEND Internal Medicine
CPT/HCPCS: 99212

== ENCOUNTER → 2024-06-06 | Outpatient (CLI) | payer MEDICARE ==
[2024-06-06 15:26] LABS: HGB 15.6 g/dL (12.0-15.0); MCH 30.1 pg (27.0-32.0); MCHC 31.8 g/dL (32.0-37.0); MCV 94.6 FL (80.0-97.0); Mean Platelet Volume 9.3 FL (9.5-12.2); NRBC Per 100 WBC 0 X 10*3/uL (0.00-0.01); Platelet Count 229 X 10*3/uL (140-440); RBC 5.18 X 10*6/uL (4.10-5.20); RDW 14.1 % (11.5-14.5); WBC 9.04 X 10*3/uL (4.50-10.00)
[2024-06-06 15:43] LABS: ALT 45 U/L (8-44); AST 33 U/L (13-35); Albumin 4.3 g/dL (3.8-4.9); Albumin/Globulin Ratio 1.54 Ratio (1.60-3.17); Alkaline Phosphatase 118 U/L (41-126); BUN/Creat Ratio 16.44 Ratio (12.00-20.00); Blood Urea Nitrogen 14.8 mg/dL (9.0-27.0); Calcium 8.9 mg/dL (8.7-10.3); Carbon Dioxide 23.4 mmol/L (21.6-31.8); Chloride 106 mmol/L (96-109); Globulin 2.8 g/dL (1.6-3.3); Glucose 119 mg/dL (70-110); LDL Cholesterol,Calculated 53.9 mg/dL (0.0-131.0); Potassium 4.3 mmol/L (3.5-5.5); Sodium 142 mmol/L (135-145); Total Bilirubin 0.4 mg/dL (0.3-1.2); Total Protein 7.1 g/dL (6.2-8.2)
== END | disposition home or self-care (01) ==
LOC: LABWHC1 08:31
PROVIDERS: ATTEND Family Medicine
DX: I12.9 Hypertensive chronic kidney disease with stage 1 through stage 4 chronic kidney disease, or unspecified chronic kidney disease (principal); E11.59 Type 2 diabetes mellitus with other circulatory complications; I25.10 Atherosclerotic heart disease of native coronary artery without angina pectoris; J44.9 Chronic obstructive pulmonary disease, unspecified; N18.31 Chronic kidney disease, stage 3a
CPT/HCPCS: 36415; 80053; 80061; 82043; 82570; 83036; 84443; 85027

== ENCOUNTER 2024-06-27 23:24 | Emergency (ER) | payer MEDICARE ==
--- NOTE | 2024-06-28 00:16 | ED ---
General Adult HPI - General Chief complaint: Fall Stated complaint: fall Time Seen by Provider: 06/27/24 23:33 Source: patient, EMS, RN notes reviewed Mode of arrival: EMS Limitations: no limitations - History of Present Illness Initial comments: 64-year-old female presents to the emergency department for evaluation of fall with head injury. Patient states that she attempted to sit down on her walker when it slipped backwards and hit a lip on the floor. This caused her to fall backwards and strike her head. She denies loss of consciousness. Denies blood thinners. She denies any other injury. Denies back pain, neck pain. - Related Data Home Medications Medication Instructions Recorded Confirmed Clopidogrel [Plavix] 75 mg PO DAILY 05/13/15 01/30/24 Metoprolol Tartrate [Lopressor] 25 mg PO DAILY 05/13/15 01/30/24 Isosorbide Mononitrate [Imdur] 150 mg PO DAILY 12/13/18 01/30/24 Montelukast [Singulair] 10 mg PO DAILY 12/13/18 01/30/24 Atorvastatin [Lipitor] 80 mg PO HS 03/24/23 01/30/24 DULoxetine HCL [Cymbalta] 20 mg PO DAILY 03/24/23 01/30/24 Ergocalciferol [Vitamin D2 (1250 1,250 mcg PO Q7D 03/24/23 01/30/24 Mcg = 99951 Iu)] Gabapentin 300 mg PO BID 03/24/23 01/30/24 Cetirizine HCl [Zyrtec] 10 mg PO DAILY 10/23/23 10/25/23 Cyclobenzaprine [Flexeril] 5 mg PO TID PRN 10/23/23 10/25/23 Nf-Narcolepsy Medication Unk 20 mg PO DAILY 10/23/23 10/25/23 Previous Rx's Medication Instructions Recorded Cephalexin [Keflex] 500 mg PO Q12HR 10 Days #20 cap 01/26/24 clindamycin HCL 300 mg PO Q6H 10 Days #40 capsule 01/27/24 Allergies Allergy/AdvReac Type Severity Reaction Status Date / Time adhesive tape Allergy Rash/Hives Verified 01/27/24 20:10 cephalexin [From Keflex] Allergy Rash/Hives Verified 01/27/24 21:04 codeine Allergy Anaphylaxis Verified 01/27/24 20:10 erythromycin base Allergy Rash/Hives Verified 01/27/24 20:10 hydromorphone HCl Allergy Anaphylaxis Verified 01/27/24 20:10 [From Dilaudid] latex Allergy Swelling, Verified 01/27/24 20:10 itching Penicillins Allergy Rash/Hives Verified 01/27/24 20:10 Sulfa (Sulfonamide Allergy Anaphylaxis Verified 06/27/24 23:28 Antibiotics) tuberculin, purified protein Allergy Itching, Verified 01/27/24 20:10 deriva Swelling tuberculin,PPD,multi-puncture Allergy Itching, Verified 01/27/24 20:10 Swelling guaifenesin AdvReac Dizziness Verified 01/27/24 20:10 meclizine AdvReac Nausea & Verified 01/27/24 20:10 Vomiting morphine AdvReac Hallucinati Verified 01/27/24 20:10 ons,vomitin g tramadol AdvReac Nausea & Verified 01/27/24 20:10 Vomiting varenicline AdvReac Hallucinati Verified 01/27/24 20:10 ons Tb skin test Allergy Itching, Uncoded 01/27/24 20:10 Swelling Review of Systems ROS Statement: Those systems with pertinent positive or pertinent negative responses have been documented in the HPI. ROS Other: All systems not noted in ROS Statement are negative. Past Medical History Past Medical History: Asthma, Coronary Artery Disease (CAD), Cancer, Chest Pain / Angina, COPD, Diabetes Mellitus, Fibromyalgia, Hyperlipidemia, Hypertension, Osteoarthritis (OA), Sleep Apnea/CPAP/BIPAP, Vascular Disorder Additional Past Medical History / Comment(s): uses cpap,Diabetes type II diet controlled, AAA - being monitored, PVD, ulcer age 14, vertigo, donated left kidney , hx cervical cancer History of Any Multi-Drug Resistant Organisms: None Reported Past Surgical History: Appendectomy, Back Surgery, Section, Cholecystectomy, Heart Catheterization, Hysterectomy, Orthopedic Surgery, Tubal Ligation Additional Past Surgical History / Comment(s): Donated left kidney to her sister-L nephrectomy, bilateral femoral stents which occluded with plaque then cleaned out, cervical fusion with plate and 4 screws, cyst removed from back and back surgery with ravi, R hip bone donor, D&C Past Anesthesia/Blood Transfusion Reactions: No Reported Reaction Additional Past Anesthesia/Blood Transfusion Reaction / Comment(s): diff coming out after first - "too much anesthesia".no hx blood transfusion Past Psychological History: Bipolar, PTSD Smoking Status: Current every day smoker Past Alcohol Use History: None Reported Past Drug Use History: None Reported - Past Family History Mother Family Medical History: Deep Vein Thrombosis (DVT), Myocardial Infarction ([place]), Pulmonary Embolus Additional Family Medical History / Comment(s): scleroderma. [place] x 4 Father Family Medical History: Musculoskeletal Disorder, Neurologic Disorder Additional Family Medical History / Comment(s): Father is . He had parkinson's dx. General Exam Limitations: no limitations General appearance: alert, in no apparent distress Head exam: Present: other (Posterior scalp hematoma) Eye exam: Present: normal appearance, PERRL, EOMI. Absent: scleral icterus, conjunctival injection, periorbital swelling ENT exam: Present: normal exam, mucous membranes moist Neck exam: Present: normal inspection. Absent: tenderness, meningismus, lymphadenopathy Respiratory exam: Present: normal lung sounds bilaterally. Absent: respiratory distress, wheezes, rales, rhonchi, stridor Cardiovascular Exam: Present: regular rate, normal rhythm, normal heart sounds. Absent: systolic murmur, diastolic murmur, rubs, gallop, clicks Extremities exam: Present: normal inspection, full ROM, normal capillary refill. Absent: tenderness, pedal edema, joint swelling, calf tenderness Back exam: Present: normal inspection, full ROM. Absent: tenderness Neurological exam: Present: alert, oriented X3, CN II-XII intact, other (GCS 15) Psychiatric exam: Present: normal affect, normal mood Skin exam: Present: warm, dry, intact, normal color. Absent: rash Course Vital Signs 06/27/24 06/28/24 23:28 01:55 Temperature 98.1 F 97.9 F Pulse Rate 74 76 Respiratory 18 16 Rate Blood Pressure 160/79 134/66 O2 Sat by Pulse 96 94 L Oximetry Medical Decision Making - Medical Decision Making Was pt. sent in by a medical professional or institution (, PA, TANNING CONSULTANT, urgent care, hospital, or prison...) When possible be specific @ -No Did you speak to anyone other than the patient for history (EMS, parent, family, police, friend...)? What history was obtained from this source @ -No Did you review nursing and triage notes (agree or disagree)? Why? @ -I reviewed and agree with nursing and triage notes Were old charts reviewed (outside hosp., previous admission, EMS record, old EKG, old radiological studies, urgent care reports/EKG's, prison records)? Report findings @ -No old charts were reviewed Differential Diagnosis (chest pain, altered mental status, abdominal pain women, abdominal pain men, vaginal bleeding, weakness, fever, dyspnea, syncope, headache, dizziness, GI bleed, back pain, seizure, CVA, palpatations, mental health, musculoskeletal)? @ -Head injury, concussion, intracranial hemorrhage, cervical spine fracture, this list is not inclusive EKG interpreted by me (3pts min.). @ -None X-rays interpreted by me (1pt min.). @ -None done CT interpreted by me (1pt min.). @ -CT brain and C-spine obtained revealing no acute intracranial process, no acute C-spine fracture or traumatic malalignment U/S interpreted by me (1pt. min.). @ -None done What testing was considered but not performed or refused? (CT, X-rays, U/S, labs)? Why? @ -None What meds were considered but not given or refused? Why? @ -None Did you discuss the management of the patient with other professionals (professionals i.e. , PA, TANNING CONSULTANT, lab, RT, psych nurse, licensed clinical social worker, operations examiner, teacher, mobile patrol officer, cyanide case hardener)? Give summary @ -No Was smoking cessation discussed for >3mins.? @ -No Was critical care preformed (if so, how long)? @ -No Were there social determinants of health that impacted care today? How? (Homelessness, low income, unemployed, alcoholism, drug addiction, transporta tion, low edu. Level, literacy, decrease access to med. care, retirement, rehab)? @ -No Was there de-escalation of care discussed even if they declined (Discuss DNR or withdrawal of care, Hospice)? DNR status @ -No What co-morbidities impacted this encounter? (DM, HTN, Smoking, COPD, CAD, Cancer, CVA, ARF, Chemo, Hep., AIDS, mental health diagnosis, sleep apnea, morbid obesity)? @ -None Was patient admitted / discharged? Hospital course, mention meds given and route, prescriptions, significant lab abnormalities, going to OR and other pertinent info. @ -Discharge. Patient presented the emergency department for evaluation of fall with head injury. Denies loss of consciousness, blood thinners. CT of the brain and C-spine were obtained revealing posterior scalp hematoma with no acute intracranial process, no acute C-spine fracture or traumatic malalignment. Patient will be discharged home. She is understanding agreeable with this. Patient stable at time of discharge. Case discussed with Dr. Cobb. Undiagnosed new problem with uncertain prognosis? @ -No Drug Therapy requiring intensive monitoring for toxicity (Heparin, Nitro, Insulin, Cardizem)? @ -No Were any procedures done? @ -No Diagnosis/symptom? @ -Fall, head injury, scalp hematoma Acute, or Chronic, or Acute on Chronic? @ -Acute Uncomplicated (without systemic symptoms) or Complicated (systemic symptoms)? @ -Uncomplicated Side effects of treatment? @ -No Exacerbation, Progression, or Severe Exacerbation? @ -No Poses a threat to life or bodily function? How? (Chest pain, [place], PA, pneumonia, PE, COPD, DKA, ARF, appy, cholecystitis, CVA, Diverticulitis, Homicidal, Suicidal, threat to staff... and all critical care pts) @ -No Disposition Clinical Impression: Head injury, Fall Disposition: HOME SELF-CARE Condition: Stable Instructions (If sedation given, give patient instructions): Fall Prevention (ED) Additional Instructions: Please follow up with your primary care provider. Return to the emergency department for new or worsening symptoms. Is patient prescribed a controlled substance at d/c from ED?: No Referrals: None,Stated [REFERRING] - 1-2 days
--- NOTE | 2024-06-28 01:13 | CT ---
EXAM: CT Head Without Intravenous Contrast CLINICAL HISTORY: ITS.REASON CT Reason: fall TECHNIQUE: Axial computed tomography images of the head/brain without intravenous contrast. CTDI is 45.2 mGy and DLP is 1062 mGy-cm. This CT exam was performed using one or more of the following dose reduction techniques: automated exposure control, adjustment of the mA and/or kV according to patient size, and/or use of iterative reconstruction technique. COMPARISON: No relevant prior studies available. FINDINGS: Brain: The territorial irwin-white matter differentiation is maintained throughout. No acute intracranial hemorrhage. No midline shift or mass effect. Ventricles: The ventricles and sulci are commensurate with age. Bones/joints: Unremarkable. No acute fracture. Soft tissues: Posterior scalp soft tissue swelling. Sinuses: Unremarkable as visualized. No acute sinusitis. Mastoid air cells: Unremarkable as visualized. No mastoid effusion. IMPRESSION: 1. No acute intracranial hemorrhage. No midline shift or mass effect. 2. Posterior scalp soft tissue swelling. EXAM: CT Cervical Spine Without Intravenous Contrast CLINICAL HISTORY: ITS.REASON CT Reason: fall TECHNIQUE: Axial computed tomography images of the cervical spine without intravenous contrast. CTDI is 15.4 mGy and DLP is 403 mGy-cm. This CT exam was performed using one or more of the following dose reduction techniques: automated exposure control, adjustment of the mA and/or kV according to patient size, and/or use of iterative reconstruction technique. COMPARISON: No relevant prior studies available. FINDINGS: The vertebral body heights are maintained. The craniocervical junction is intact. The atlanto-dens interval is maintained. The dens is intact. There is no spondylolisthesis. Multilevel cervical spondylosis and degenerative disc disease. Straightening of the cervical lordosis. ACDF at C5-6. No CT evidence of hardware complication. The unenhanced neck soft tissues are grossly unremarkable. The visualized lung apices are grossly clear. IMPRESSION: 1. No acute fracture or subluxation of the cervical spine. 2. ACDF at C5-6. No CT evidence of hardware complication.
[2024-06-28 01:56] VITALS: BP 134/66; PULSE 76; RESP 16; TEMP 97.9
== END 2024-06-28 01:55 | disposition home or self-care (01) ==
LOC: EC 23:24
DX: S00.03XA Contusion of scalp, initial encounter (principal); F17.200 Nicotine dependence, unspecified, uncomplicated; Z88.6 Allergy status to analgesic agent; Z88.5 Allergy status to narcotic agent; Z88.0 Allergy status to penicillin; Z88.2 Allergy status to sulfonamides; Z88.1 Allergy status to other antibiotic agents; Z91.048 Other nonmedicinal substance allergy status; W18.00XA Striking against unspecified object with subsequent fall, initial encounter
CPT/HCPCS: 70450; 72125; 99284

== ENCOUNTER → 2024-08-13 | Outpatient (CLI) | payer MEDICARE ==
--- NOTE | 2024-08-13 14:35 | MM ---
Reason for Exam: Screening (asymptomatic). Last mammogram was performed 1 year(s) and 2 month(s) ago. Patient History: Menarche at age 10. First Full-Term at age 22. Left ovary removed at age 47. Hysterectomy at age 47. Postmenopausal. Risk Values: Dee 5 year model risk: 1.5%. NCI Lifetime model risk: 6.8%. Prior Study Comparison: 05/28/2020 Bilateral Screening Mammogram, [facility]. 05/31/2022 Bilateral MG 3D screening mammo w/cad, [facility]. 06/04/2023 Bilateral MG 3D screening mammo w/cad, [facility]. Tissue Density: There are scattered areas of fibroglandular density. Findings: Analyzed By CAD. There are a few small scattered benign-appearing round calcifications bilaterally redemonstrated. There is no suspicious group of microcalcifications or new suspicious mass in either breast. Overall Assessment: Benign, BI-RAD 2 Management: Screening Mammogram of both breasts in 1 year. . Patient should continue monthly self-breast exams. A clinical breast exam by your physician is recommended on an annual basis. This exam should not preclude additional follow-up of suspicious palpable abnormalities. Note on Dee scores and lifetime risk: 1. A Dee score greater than 3% is considered moderate risk. If this is the case, consider specialist referral to assess eligibility for a risk reducing agent. 2. If overall lifetime risk for the development of breast cancer is 20% or higher, the patient may qualify for future screening with alternating mammogram and breast MRI. [facility], , 08/13/2024 2:30 PM. Electronically signed and approved by: Viet Jordan M.D.
== END | disposition home or self-care (01) ==
LOC: RADMAMWWP 14:03
PROVIDERS: ATTEND Family Medicine
DX: Z12.31 Encounter for screening mammogram for malignant neoplasm of breast (principal); R92.323 Mammographic fibroglandular density, bilateral breasts; R92.1 Mammographic calcification found on diagnostic imaging of breast; Z78.0 Asymptomatic menopausal state
CPT/HCPCS: 77063; 77067